=== PATIENT | female | born 1955 | race Caucasian/White ===

== ENCOUNTER → 2018-09-11 13:25 | Outpatient (CLI) | payer OTHER, SELFPAY ==
[2018-09-17 17:16] LABS: HPV Reflexed? NOT INDICATED
== END ==
PROVIDERS: Family Provider Family Medicine; PCP Family Medicine; Visit Provider Obstetrics & Gynecology
DX: Z12.4 Encounter for screening for malignant neoplasm of cervix (principal)
CPT/HCPCS: 88175; G0145

== ENCOUNTER → 2018-09-11 14:45 | Outpatient (CLI) | payer OTHER, SELFPAY ==
[2017-11-24 09:43] VITALS: BMI 25.4
[2018-09-11 17:41] LABS: Hemoglobin A1c 5.4 % (4.2-6.3)
[2018-09-11 17:51] LABS: Progesterone Level 0.12 ng/mL (See Comment)
[2018-09-11 19:39] LABS: Estradiol 18.4 pg/mL; Free T3 2.7 pg/mL (2.18-3.98); T4 Free Direct 1.04 ng/dL (0.76-1.46); Thyroid Stim Hormone (TSH) 1.31 uIU/mL (0.358-3.74)
[2018-09-13 09:27] LABS: DHEA Sulfate 37.9 ug/dL (29.4-220.5)
== END ==
PROVIDERS: Family Provider Family Medicine; PCP Family Medicine; Referring Provider Obstetrics & Gynecology; Visit Provider Obstetrics & Gynecology
DX: R53.83 Other fatigue (principal); Z78.0 Asymptomatic menopausal state
CPT/HCPCS: 36415; 82533; 82627; 82670; 83036; 84144; 84403; 84439; 84443; 84481; 82626

== ENCOUNTER → 2018-10-29 09:11 | Outpatient (CLI) | payer OTHER, SELFPAY ==
--- NOTE | 2018-10-29 09:13 | BI_ITS ---
MAMMOGRAPHY - BILATERAL SCREENING REASON FOR EXAM: Female, 63 years old. Routine annual screening examination. PERTINENT HISTORY: Non-contributory. TECHNIQUE: Digital bilateral breast brittani (3D mammographic acquisition) in the CC and MLO projections. 2-D mediolateral oblique (MLO) and craniocaudad (CC) views of both breasts were obtained. CAD: Full Field Digital Mammography with Computer Added Detection was performed. COMPARISON: Comparison is made with prior study dated March 14, 2017. FINDINGS: Breast Composition: There are scattered areas of fibroglandular density. There are no dominant masses or suspicious calcifications. No other significant abnormalities are identified. There has been no significant change since the prior study. BI/SCREENING MAMM (CAD), BILAT IMPRESSION: Stable bilateral screening mammogram. Yearly follow-up mammogram recommended. (A) ASSESSMENT CATEGORY: BIRADS Category 1: Negative. A letter regarding these results will be sent to the patient by the facility within 30 days. Approximately 10% of breast cancers are not detected by mammography. A normal mammogram should not delay biopsy of a clinically suspicious abnormality. [id number] Electronically Signed: Bean Carter, at 11:16 EDT , Service support ,
--- NOTE | 2018-10-29 09:16 | BD_ITS ---
STUDY: DUAL ENERGY X-RAY ABSORPTIOMETRY / DXA REASON FOR EXAM: Female, 63 years old. The patient is postmenopausal. No loss of height. TECHNIQUE: Bone Mineral Density (BMD) measurements of lumbar spine and bilateral hips were obtained. COMPARISON: Comparison is made with prior study dated January 17, 2016. FINDINGS: Lumbar Spine (L1-L4): g/cm2 (1.067) / T-score (-0.9) / Z-score (0.4) Findings are suggestive of normal bone density with a low fracture risk. Left Femur Total: g/cm2 (0.742) / T-score (-2.1) / Z-score (-1.1) Left Femoral Neck: g/cm2 (0.641) / T-score (-2.9) / Z-score (-1.5) Right Femur Total: g/cm2 (0.775) / T-score (-2.0) / Z-score (-1.0) Right Femoral Neck: g/cm2 (0.650) / T-score (-2.8) / Z-score (-1.5) The T-Scores on the most recent prior examination were: Lumbar Spine (L1-L4): There has been worsening of bone density since the previous examination. Left Femur Total: which represents a worsening of 4.6%. Right Femur Total: which represents a worsening of 4.2%. BD/Dexa Bone Density Study IMPRESSION: The patient is considered osteoporotic as outlined below according to [employer] Organization (WHO) criteria with a high fracture risk. There has been worsening of bone density since the previous examination. Reference Information: The T-score is the number of standard deviations above or below the standard which is normal for young adults at their peak bone mineral density. The World Health Organization (WHO) interprets the T-scores as follows: Above -1 Normal bone density Between -1 and -2.5 Osteopenia Equal to / or below -2.5 Osteoporosis As a practical clinical guideline, osteopenia may be graded as follows: Mild -1 through -1.5 Moderate -1.6 through -2.0 Severe -2.1 through -2.4 The Z-score is the number of standard deviations above or below age-matched controls. A Z-score of less than -1.5 would be considered abnormal. References: 1. NIH Osteoporosis and Related Bone Diseases http://www.osteo.org 2. International Society for Clinical Densitometry http://www.iscd.org 3. National Osteoporosis Foundation http://www.nof.org Electronically Signed: Bean Carter, at 14:55 EDT , Service support ,
== END ==
PROVIDERS: Family Provider Family Medicine; PCP Family Medicine; Referring Provider Obstetrics & Gynecology; Visit Provider Obstetrics & Gynecology
DX: Z12.31 Encounter for screening mammogram for malignant neoplasm of breast (principal); Z78.0 Asymptomatic menopausal state
CPT/HCPCS: 77063; 77067; 77080

== ENCOUNTER → 2020-03-30 15:15 | Outpatient (CLI) | payer OTHER, SELFPAY ==
--- NOTE | 2020-03-30 15:17 | BI_ITS ---
MAMMOGRAPHY - BILATERAL SCREENING REASON FOR EXAM: Female, 64 years old. Routine annual screening examination. PERTINENT HISTORY: Non-contributory. TECHNIQUE: Digital bilateral breast reuben (3D mammographic acquisition) in the CC and MLO projections. 2-D mediolateral oblique (MLO) and craniocaudad (CC) views of both breasts were obtained. CAD: Full Field Digital Mammography with Computer Added Detection was performed. COMPARISON: Comparison is made with prior examination dated 10/29/2018 and 03/14/2017. FINDINGS: Breast Composition: There are scattered areas of fibroglandular density. There are no dominant masses or suspicious calcifications. No other significant abnormalities are identified. There has been no significant change since the prior study. BI/SCREEN MAMM (CAD) W/REUBEN BILAT IMPRESSION: Stable bilateral screening mammogram. Yearly follow-up mammogram recommended. (A) ASSESSMENT CATEGORY: BIRADS Category 1: Negative. A letter regarding these results will be sent to the patient by the facility within 30 days. Approximately 10% of breast cancers are not detected by mammography. A normal mammogram should not delay biopsy of a clinically suspicious abnormality. [id number] Electronically Signed: Bean Carter, at 8:01 EDT , Service support ,
== END ==
PROVIDERS: PCP Family Medicine; Referring Provider Student in an Organized Health Care Education/Training Program; Visit Provider Student in an Organized Health Care Education/Training Program
DX: Z12.31 Encounter for screening mammogram for malignant neoplasm of breast (principal)
CPT/HCPCS: 77063; 77067

== ENCOUNTER 2020-09-22 02:17 | Outpatient (RCR) | payer OTHER, SELFPAY ==
[2017-11-24 09:43] VITALS: BMI 25.4
[2020-09-22] MEDS: COVID-19 VACC, MRNA(PFIZER)/PF 30 MCG/0.3 ML SYRINGE IM (17:35)
[2020-10-13] MEDS: COVID-19 VACC, MRNA(PFIZER)/PF 30 MCG/0.3 ML SYRINGE IM (16:28)
== END 2020-10-13 23:59 | disposition home or self-care (01) ==
LOC: IMMUN 02:17
PROVIDERS: PCP Family Medicine; Referring Provider Family Medicine; Visit Provider Family Medicine
DX: Z23 Encounter for immunization (principal)
CPT/HCPCS: 0001A; 0002A; 91300

== ENCOUNTER 2021-11-09 13:14 | Outpatient (CLI) | payer MEDICARE, OTHER, SELFPAY ==
--- NOTE | 2021-11-09 13:22 | BI_ITS ---
MAMMOGRAPHY - BILATERAL SCREENING 3-D TOMOSYNTHESIS REASON FOR EXAM: Female, 66 years old. SCREENING PERTINENT HISTORY: No significant family history. TECHNIQUE: 2-D mammograms and 3-D Tomosynthesis of the breast (s) were performed. CAD was performed. COMPARISON: 03/30/2020 FINDINGS: The breast composition is composed of scattered fibroglandular density. Scattered benign calcifications are seen. No dense spiculated masses or suspicious microcalcifications are identified. No architectural distortion is identified. There is no skin thickening or retraction. There has been no significant change since the prior study. BI/SCRN MAMM (CAD)W/REUBEN BILAT IMPRESSION: No mammographic signs of malignancy. Routine yearly mammograms recommended. ASSESSMENT CATEGORY: BIRADS Category 1: Negative. A letter regarding these results will be sent to the patient by the facility within 30 days. FOLLOW UP RECOMMENDATION: Yearly follow up mammogram recommended. (A) Approximately 10% of breast cancers are not detected by mammography. A normal mammogram should not delay biopsy of a clinically suspicious abnormality. Electronically Signed: Obi Jones MD at 16:28 EDT ,
--- NOTE | 2021-11-09 13:25 | BD_ITS ---
STUDY: DUAL ENERGY X-RAY ABSORPTIOMETRY / DXA REASON FOR EXAM: Female, 66 years old. M810. Patient is postmenopausal. TECHNIQUE: Bone Mineral Density (BMD) measurements of lumbar spine and bilateral hips were obtained. COMPARISON: Comparison is made with prior study 10/29/2018. FINDINGS: Lumbar Spine (L1-L4): g/cm2 (0.811) / T-score (-2.1) / Z-score (0.4) Findings are suggestive of osteopenia with a moderate fracture risk. Left Femur Total: g/cm2 (0.633) / T-score (-2.5) / Z-score (-1.3) Left Femoral Neck: g/cm2 (0.517) / T-score (-3.0) / Z-score (-1.5) Right Femur Total: g/cm2 (0.687) / T-score (-2.1) / Z-score (-0.9) Right Femoral Neck: g/cm2 (0.505) / T-score (-3.1) / Z-score (-1.6) The T-Scores on the most recent prior examination were: Lumbar Spine (L1-L4): There has been worsening of bone density since the previous examination. Left Femur Total: which represents a worsening of 7.4%. Right Femur Total: which represents a worsening of 1.3%. BD/Dexa Bone Density Study IMPRESSION: The patient is considered osteoporotic as outlined below according to [employer] Organization (WHO) criteria with a high fracture risk. There has been worsening of bone density since the previous examination. Reference Information: The T-score is the number of standard deviations above or below the standard which is normal for young adults at their peak bone mineral density. The World Health Organization (WHO) interprets the T-scores as follows: Above -1 Normal bone density Between -1 and -2.5 Osteopenia Equal to / or below -2.5 Osteoporosis As a practical clinical guideline, osteopenia may be graded as follows: Mild -1 through -1.5 Moderate -1.6 through -2.0 Severe -2.1 through -2.4 The Z-score is the number of standard deviations above or below age-matched controls. A Z-score of less than -1.5 would be considered abnormal. References: 1. NIH Osteoporosis and Related Bone Diseases www osteo.org 2. International Society for Clinical Densitometry www iscd.org 3. National Osteoporosis Foundation www nof.org Electronically Signed: Bean Carter MD at 10:46 EDT ,
== END 2021-11-09 23:59 | disposition home or self-care (01) ==
LOC: OPBI 13:17
PROVIDERS: PCP Family Medicine; Visit Provider Family Medicine
DX: Z12.31 Encounter for screening mammogram for malignant neoplasm of breast (principal); M81.0 Age-related osteoporosis without current pathological fracture
CPT/HCPCS: 77063; 77067; 77080

== ENCOUNTER → 2022-07-05 | Outpatient (CLI) | payer MEDICARE, OTHER, SELFPAY ==
--- NOTE | 2022-07-05 06:24 | MRI_ITS ---
STUDY: MRI LEFT KNEE REASON FOR EXAM: Female, 66 years old. Fall, knee injury, knee pain. TECHNIQUE: Standardized fat and water weighted pulse sequences were obtained in all 3 orthogonal planes. COMPARISON: X-ray 06/11/2022 FINDINGS: Normal medial meniscus. Normal hyaline cartilage of the medial femorotibial compartment. Within the medial femoral condyle at the origin of the medial collateral ligament there is a oval nondisplaced microtrabecular fracture with surrounding severe contusion. This may be from direct trauma. Grade 1 medial collateral ligament tear/sprain. Normal distal semimembranosus, gracilis and semitendinosus tendons. Normal lateral meniscus. Normal hyaline cartilage of the lateral femorotibial compartment. Curvilinear microtrabecular fracture of the posterior aspect of the lateral tibial plateau with surrounding severe contusion. Severe contusion of the lateral femoral condyle as well. Normal proximal tibiofibular articulation. Normal lateral collateral (fibular) ligament. Normal popliteus tendon. Normal biceps femoris tendon. Normal anterior cruciate ligament (ACL). Normal posterior cruciate ligament (PCL). Shallow trochlear groove with lateral subluxation patella and edema superolateral Hoffa''s fat pad consistent with patellofemoral maltracking. Normal hyaline cartilage of the patellofemoral compartment. There is a complete sprain of the medial parapatellar retinaculum. Normal quadriceps tendon. Normal patellar tendon. Normal Hoffa''s fat pad. There is no joint effusion. The soft tissues are unremarkable. The otherwise visualized osseous structures are unremarkable. MRI/Lower Ext Joint Only (Routine) IMPRESSION: 1. Full-thickness tear of the origin of the medial patellofemoral retinaculum at the origin from the medial femoral condyle near the origin of the medial collateral ligament. Associated grade 1 medial collateral ligament tear/sprain. Oval microtrabecular fracture of the adjacent medial femoral condyle with surrounding severe contusion. Findings may be related to direct trauma or patellar dislocation with near avulsion. 2. Small curvilinear microtrabecular fracture of the posterior lateral tibial plateau with surrounding severe contusion and severe contusion of the lateral femoral condyle. 3. Patellofemoral maltracking. Electronically Signed: Obi Jones MD at 8:26 EST ,
== END | disposition home or self-care (01) ==
LOC: MRI 06:24
PROVIDERS: PCP Family Medicine; Referring Provider Physician Assistant; Visit Provider Physician Assistant
DX: S82.142A Displaced bicondylar fracture of left tibia, initial encounter for closed fracture (principal); S72.433A Displaced fracture of medial condyle of unspecified femur, initial encounter for closed fracture; S70.12XA Contusion of left thigh, initial encounter; S83.412A Sprain of medial collateral ligament of left knee, initial encounter; S83.012A Lateral subluxation of left patella, initial encounter
CPT/HCPCS: 73721

== ENCOUNTER → 2022-11-06 | Outpatient (CLI) | payer MEDICARE, OTHER, SELFPAY ==
[2022-11-06 08:05] LABS: Absolute Lymphocyte Count 1.26 X10^3/uL (0.83-4.51); Absolute Neutrophil Count 1.5 X10^3/uL (2.0-7.7); Basophil# 0.02 X10^3/uL; Basophil% 0.6 % (0-1); Eosinophil# 0.11 X10^3/uL; Eosinophils% 3.5 % (0-5); Hemoglobin 13.9 g/dL (12.0-15.0); Lymphocyte # 1.26 X10^3/ul (0.83-4.51); Lymphocyte % 39.7 % (19-41); Mean Corp Hgb Conc 31.6 g/dL (32-36); Mean Corpuscular Hgb 31.7 pg (27.0-32.0); Mean Corpuscular Volume 100.2 fL (81-99); Mean Platelet Vol. 10.8 fl (6.2-12.0); Monocyte% 9.5 % (0-10); NRBC Flagged by Analyzer 0 % (0-5); Neutrophil # 1.47 X10^3/uL (2.7-7.7); Neutrophil % 46.4 % (47-70); Platelet Count 207 K/mm3 (150-450); RBC Distribution Width CV 13.2 % (11.6-14.6); RBC Distribution Width SD 49.1 fl (35.1-43.9); Red Blood Count 4.39 M/mm3 (4.2-5.4); White Blood Count 3.2 K/mm3 (4.4-11.0)
[2022-11-06 08:18] LABS: ALB/GLOB Ratio 1.1 RATIO (0.9-2.4); AST(SGOT) 11 U/L (15-37); Alanine Aminotransfer ALT/SGPT 24 U/L (13-56); Albumin, Serum 3.9 g/dL (3.2-5.0); Alkaline Phosphatase 66 U/L (45-117); Anion Gap -2 (5-15); BUN 21 mg/dL (7-18); BUN/Creat Ratio 26.1 RATIO (10-20); Chloride 110 mmol/L (98-107); Cholesterol 262 mg/dL (200); Creatinine, Serum 0.81 mg/dL (0.55-1.02); EST Glomerular Filtration Rate 76 mL/min (>60); Est Glom Filt Rate - Afr Amer 92 mL/min (>60); Globulin 3.4 g/dL (2.2-4.2); Glucose 106 mg/dL (74-106); High Density Lipoprotein 66 mg/dL; Potassium 4.5 mmol/L (3.5-5.1); Protein, Total 7.3 g/dL (6.4-8.2); Sodium Level 138 mmol/L (136-145); Triglycerides 172 mg/dL; Very Low Density Lipoprotein 34 mg/dL (5-40)
== END | disposition home or self-care (01) ==
LOC: LAB 07:35
PROVIDERS: PCP Family Medicine; Referring Provider Family Medicine; Visit Provider Family Medicine
DX: E78.5 Hyperlipidemia, unspecified (principal); Z51.81 Encounter for therapeutic drug level monitoring
CPT/HCPCS: 36415; 80053; 80061; 85025

== ENCOUNTER → 2022-11-14 | Outpatient (CLI) | payer MEDICARE, OTHER, SELFPAY ==
--- NOTE | 2022-11-14 08:43 | BI_ITS ---
MAMMOGRAPHY - BILATERAL SCREENING REASON FOR EXAM: Female, 67 years old. Routine annual screening examination. PERTINENT HISTORY: Non-contributory. TECHNIQUE: Digital bilateral breast reuben (3D mammographic acquisition) in the CC and MLO projections. 2-D mediolateral oblique (MLO) and craniocaudad (CC) views of both breasts were obtained. CAD: Full Field Digital Mammography with Computer Added Detection was performed. COMPARISON: Comparison is made with prior study dated November 09, 2021 and March 30, 2020. FINDINGS: Breast Composition: There are scattered areas of fibroglandular density. There are no dominant masses or suspicious calcifications. No other significant abnormalities are identified. There has been no significant change since the prior study. BI/SCRN MAMM (CAD)W/REUBEN BILAT IMPRESSION: Stable bilateral screening mammogram. Yearly follow-up mammogram recommended. (A) ASSESSMENT CATEGORY: BIRADS Category 1: Negative. A letter regarding these results will be sent to the patient by the facility within 30 days. Approximately 10% of breast cancers are not detected by mammography. A normal mammogram should not delay biopsy of a clinically suspicious abnormality. [id number] Electronically Signed: Bean Carter MD at 9:47 EDT ,
== END | disposition home or self-care (01) ==
LOC: OPBI 08:41
PROVIDERS: PCP Family Medicine; Referring Provider Family Medicine; Visit Provider Family Medicine
DX: Z12.31 Encounter for screening mammogram for malignant neoplasm of breast (principal)
CPT/HCPCS: 77063; 77067

== ENCOUNTER 2023-04-26 13:01 | Outpatient (CLI) | payer MEDICARE, OTHER, SELFPAY ==
[2023-04-26 13:24] VITALS: BP 145/69; PULSE 67; RESP 16; TEMP 36.7; O2SAT 98; BMI 25.4
[2023-04-26] MEDS: DENOSUMAB 60 MG/ML SC (13:26)
== END 2023-04-26 13:02 | disposition home or self-care (01) ==
LOC: MEDOUTP 13:01
PROVIDERS: PCP Family Medicine; Referring Provider Family Medicine; Visit Provider Family Medicine
DX: M81.0 Age-related osteoporosis without current pathological fracture (principal)
CPT/HCPCS: 96372; J0897

== ENCOUNTER 2023-10-25 12:47 | Outpatient (CLI) | payer MEDICARE, OTHER, SELFPAY ==
[2023-10-25 12:57] VITALS: BP 130/62; PULSE 66; RESP 16; TEMP 35.5; O2SAT 96; BMI 25.7
[2023-10-25] MEDS: DENOSUMAB 60 MG/ML SC (12:59)
== END 2023-10-25 12:48 | disposition home or self-care (01) ==
LOC: MEDOUTP 12:47
PROVIDERS: PCP Family Medicine; Referring Provider Family Medicine; Visit Provider Family Medicine
DX: M81.0 Age-related osteoporosis without current pathological fracture (principal)
CPT/HCPCS: 96372; J0897

== ENCOUNTER → 2023-12-04 | Outpatient (CLI) | payer MEDICARE, OTHER, SELFPAY ==
[2023-12-04 12:36] LABS: Absolute Lymphocyte Count 1.28 X10^3/uL (0.83-4.51); Absolute Neutrophil Count 1.5 X10^3/uL (2.0-7.7); Basophil# 0.03 X10^3/uL; Basophil% 0.9 % (0-1); Eosinophil# 0.12 X10^3/uL; Eosinophils% 3.6 % (0-5); Hematocrit 42.2 % (37-47); Hemoglobin 13.4 g/dL (12.0-15.0); Lymphocyte # 1.28 X10^3/ul (0.83-4.51); Lymphocyte % 38.9 % (19-41); Mean Corp Hgb Conc 31.8 g/dL (32-36); Mean Corpuscular Hgb 31.5 pg (27.0-32.0); Mean Corpuscular Volume 99.1 fL (81-99); Mean Platelet Vol. 11.3 fl (6.2-12.0); Monocyte# 0.32 X10^3/uL; Monocyte% 9.7 % (0-10); NRBC Flagged by Analyzer 0 % (0-5); Neutrophil # 1.53 X10^3/uL (2.7-7.7); Neutrophil % 46.6 % (47-70); Platelet Count 204 K/mm3 (150-450); RBC Distribution Width SD 46.9 fl (35.1-43.9); Red Blood Count 4.26 M/mm3 (4.2-5.4); White Blood Count 3.3 K/mm3 (4.4-11.0)
[2023-12-04 12:57] LABS: Vitamin B12 158 pg/mL (211-911)
[2023-12-04 14:47] LABS: ALB/GLOB Ratio 1.1 RATIO (0.9-2.4); AST(SGOT) 18 U/L (15-37); Alanine Aminotransfer ALT/SGPT 54 U/L (13-56); Albumin, Serum 3.8 g/dL (3.2-5.0); Alkaline Phosphatase 62 U/L (45-117); Anion Gap 6 (5-15); BUN 17 mg/dL (7-18); BUN/Creat Ratio 22.9 RATIO (10-20); Calcium,Total 9.7 mg/dL (8.5-10.1); Chloride 110 mmol/L (98-107); Cholesterol 253 mg/dL (200); Creatinine, Serum 0.74 mg/dL (0.55-1.02); EST Glomerular Filtration Rate 83 mL/min (>60); Est Glom Filt Rate - Afr Amer 101 mL/min (>60); Free T3 2.4 pg/mL (2.18-3.98); Globulin 3.5 g/dL (2.2-4.2); Glucose 96 mg/dL (74-106); High Density Lipoprotein 59 mg/dL; Potassium 4.3 mmol/L (3.5-5.1); Protein, Total 7.3 g/dL (6.4-8.2); Sodium Level 139 mmol/L (136-145); T4 Free Direct 1.11 ng/dL (0.76-1.46); Thyroid Stim Hormone (TSH) 0.94 uIU/mL (0.358-3.74); Triglycerides 166 mg/dL; Very Low Density Lipoprotein 33 mg/dL (5-40)
== END | disposition home or self-care (01) ==
LOC: BFHLAB 08:21
PROVIDERS: PCP Family Medicine; Referring Provider Family Medicine; Visit Provider Family Medicine
DX: E03.9 Hypothyroidism, unspecified (principal); E78.1 Pure hyperglyceridemia; E53.8 Deficiency of other specified B group vitamins
CPT/HCPCS: 36415; 80053; 80061; 82607; 84439; 84443; 84481; 85025

== ENCOUNTER → 2023-12-26 | Outpatient (CLI) | payer MEDICARE, OTHER, SELFPAY ==
--- NOTE | 2023-12-26 14:02 | RAD_ITS ---
INDICATION: THORACIC BACK PAIN EXAMINATION/TECHNIQUE: X-RAY - XR Spine Thoracic 3 Views COMPARISON: FINDINGS: VERTEBRAE: Preserved vertebral body height. Mild spurring at the mid thoracic vertebral endplates. No fracture. No spondylolisthesis. Preservation of the normal thoracic kyphosis. No significant facet arthropathy. DISCS: Disc spaces are maintained. INCLUDED CHEST/ABDOMEN: No acute abnormalities. RAD/Thoracic Spine 3 Views IMPRESSION: Degenerative vertebral changes. Electronically Signed: Bennett Cedillo DO at 18:04 EDT ,
== END | disposition home or self-care (01) ==
LOC: RAD 14:00
PROVIDERS: PCP Family Medicine; Referring Provider Family Medicine; Visit Provider Family Medicine
DX: M54.6 Pain in thoracic spine (principal)
CPT/HCPCS: 72072

== ENCOUNTER 2024-05-08 12:19 | Outpatient (CLI) | payer MEDICARE, OTHER, SELFPAY ==
[2024-05-08 12:44] VITALS: BP 136/61; PULSE 60; RESP 16; TEMP 36.4; O2SAT 97; BMI 25.4
[2024-05-08] MEDS: DENOSUMAB 60 MG/ML SC (12:49)
== END 2024-05-08 23:59 | disposition home or self-care (01) ==
LOC: MEDOUTP 12:21
PROVIDERS: PCP Family Medicine; Referring Provider Family Medicine; Visit Provider Family Medicine
DX: M81.0 Age-related osteoporosis without current pathological fracture (principal)
CPT/HCPCS: 96372; J0897

== ENCOUNTER → 2024-06-04 | Outpatient (CLI) | payer MEDICARE, OTHER, SELFPAY ==
--- NOTE | 2024-06-04 14:51 | BD_ITS ---
STUDY: DUAL ENERGY X-RAY ABSORPTIOMETRY / DXA REASON FOR EXAM: Female, 68 years old. 733.00OsteoporosisBONE DENSITY REASON FOR EXAM TECHNIQUE: Bone Mineral Density (BMD) measurements of lumbar spine and bilateral hips were obtained. COMPARISON: Comparison is made with prior study of November 09, 2021. FINDINGS: Lumbar Spine (L1-L4): g/cm2 (0.887) / T-score (-1.5) / Z-score (0.5) Findings are suggestive of osteopenia with a low fracture risk. Left Femur Total: g/cm2 (0.657) / T-score (-2.3) / Z-score (-1.0) Left Femoral Neck: g/cm2 (0.473) / T-score (-3.4) / Z-score (-1.7) Right Femur Total: g/cm2 (0.684) / T-score (-2.1) / Z-score (-0.7) Right Femoral Neck: g/cm2 (0.514) / T-score (-3.0) / Z-score (-1.4) The T-Scores on the most recent prior examination were: Lumbar Spine (L1-L4): There has been improvement of bone density since the previous examination. Left Femur Total: which represents an improvement of 3.7%. Right Femur Total: which represents a worsening of and 0.5%. BD/Dexa Bone Density Study IMPRESSION: The patient is considered osteopenic as outlined below according to [employer] Organization (WHO) criteria with a high fracture risk. There has been improvement of bone density since the previous examination. Reference Information: The T-score is the number of standard deviations above or below the standard which is normal for young adults at their peak bone mineral density. The World Health Organization (WHO) interprets the T-scores as follows: Above -1 Normal bone density Between -1 and -2.5 Osteopenia Equal to / or below -2.5 Osteoporosis As a practical clinical guideline, osteopenia may be graded as follows: Mild -1 through -1.5 Moderate -1.6 through -2.0 Severe -2.1 through -2.4 The Z-score is the number of standard deviations above or below age-matched controls. A Z-score of less than -1.5 would be considered abnormal. References: 1. NIH Osteoporosis and Related Bone Diseases www osteo.org 2. International Society for Clinical Densitometry www iscd.org 3. National Osteoporosis Foundation www nof.org Electronically Signed: Bean Carter MD at 15:25 EST ,
--- NOTE | 2024-06-04 14:52 | BI_ITS ---
MAMMOGRAPHY - BILATERAL SCREENING REASON FOR EXAM: Female, 68 years old. Routine annual screening examination. PERTINENT HISTORY: Non-contributory. TECHNIQUE: Digital bilateral breast reuben (3D mammographic acquisition) in the CC and MLO projections. 2-D mediolateral oblique (MLO) and craniocaudad (CC) views of both breasts were obtained. CAD: Full Field Digital Mammography with Computer Added Detection was performed. COMPARISON: Comparison is made with prior study dated November 14, 2022 and November 09, 2021. FINDINGS: Breast Composition: There are scattered areas of fibroglandular density. There are no dominant masses or suspicious calcifications. No other significant abnormalities are identified. There has been no significant change since the prior study. BI/SCRN MAMM (CAD)W/REUBEN BILAT IMPRESSION: Stable bilateral screening mammogram. Yearly follow-up mammogram recommended. (A) ASSESSMENT CATEGORY: BIRADS Category 1: Negative. A letter regarding these results will be sent to the patient by the facility within 30 days. Approximately 10% of breast cancers are not detected by mammography. A normal mammogram should not delay biopsy of a clinically suspicious abnormality. [id number] Electronically Signed: Bean Carter MD at 15:48 EST ,
== END | disposition home or self-care (01) ==
LOC: OPBD 14:50
PROVIDERS: PCP Family Medicine; Referring Provider Family Medicine; Visit Provider Family Medicine
DX: Z12.31 Encounter for screening mammogram for malignant neoplasm of breast (principal); M81.0 Age-related osteoporosis without current pathological fracture
CPT/HCPCS: 77063; 77067; 77080

== ENCOUNTER 2024-11-06 12:17 | Outpatient (CLI) | payer MEDICARE, OTHER, SELFPAY ==
[2024-11-06 12:30] VITALS: BP 121/57; PULSE 70; RESP 16; TEMP 36.4; O2SAT 99; BMI 25.7
[2024-11-06] MEDS: DENOSUMAB 60 MG/ML SC (12:31)
== END 2024-11-06 23:59 | disposition home or self-care (01) ==
LOC: MEDOUTP 12:19
PROVIDERS: PCP Family Medicine; Referring Provider Family Medicine; Visit Provider Family Medicine
DX: M81.0 Age-related osteoporosis without current pathological fracture (principal)
CPT/HCPCS: 96372; J0897

== ENCOUNTER → 2025-01-19 | Outpatient (CLI) | payer MEDICARE, OTHER, SELFPAY ==
--- OUTSIDE RECORDS SUMMARY | 2025-01-19 10:46 | XMS RPT_ITS | CCD ---
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 Linh Peters Primary Care Provider [phone] Dr. Linh Peters Referring Provider [phone] Ai KULKARNI PA Reed Mathis Attending Provider Shawanda KULKARNI PA Twin Attending Provider [phone] Dr. Linh Peters DO Primary Care Provider Dr. Linh Peters DO Attending Provider [phone] Dr. Linh Peters DO Referring Provider [phone] Malys, Linh Primary Care Unavailable Malys, Linh Referring Unavailable Malys, Linh Attending Unavailable Malys, Linh Primary Care Unavailable Malys, Linh Referring Unavailable Malys, Linh Attending Unavailable Malys, Linh Primary Care Unavailable Malys, Linh Referring Unavailable Malys, Linh Attending Unavailable Malys, Linh Referring Unavailable Malys, Linh Attending Unavailable Malys, Linh Primary Care Unavailable Malys, Linh Referring Unavailable Malys, Linh Attending Unavailable Malys, Linh Primary Care Unavailable Medications Current Medications Medication Drug Class(es) Dates Sig (Normalized) Sig (Original) pantoprazole 40 mg delayed release oral tablet (5 sources) Proton Pump Inhibitor Start: 06-13-2022 take 1 tablet by mouth once daily Pantoprazole 40 mg tablet,delayed release (DR/EC) Active 40 mg PO DAILY June 13, 2022 1:00am Completed/Discontinued Medications Medication Drug Class(es) Dates Sig (Normalized) Sig (Original) alendronic acid 70 mg oral tablet (5 sources) Bisphosphonate Start: 06-13-2022 End: 04-26-2023 take 1 tablet by mouth every week Alendronate 70 mg tablet Discontinued 70 mg PO EVERY WEEK June 13, 2022 1:00am April 26, 2023 1:23pm esomeprazole 40 mg delayed release oral capsule (6 sources) Proton Pump Inhibitor Start: 04-06-2014 End: 06-13-2022 take 1 capsule by mouth once daily Esomeprazole Magnesium 40 MG capsule Discontinued 40 mg PO DAILY April 06, 2014 12:00am June 13, 2022 11:50am meloxicam 7.5 mg oral tablet (5 sources) Nonsteroidal Anti-inflammatory Drug Start: 07-09-2022 End: 10-25-2023 take 1-2 tablets by mouth once daily Meloxicam 7.5 mg tablet Discontinued 0 PO DAILY July 09, 2022 1:00am October 25, 2023 12:56pm 1-2 tablets orally daily; (start with 1 tablet (7.5mg)) traMADol hydrochloride 50 mg oral tablet (5 sources) Opioid Agonist Start: 07-09-2022 End: 10-25-2023 take 1 tablet by mouth every eight hours as needed for pain Tramadol 50 mg tablet Discontinued 50 mg PO Q8H as needed for pain July 09, 2022 1:00am October 25, 2023 12:56pm Problems Active Problems Problem Classification Problem Date Documented Da te Episodic/Chronic Osteoporosis (1 source) Age-related osteoporosis without current pathological fracture; Translations: [Age-related osteoporosis without current pathological fracture] Onset: 11-10-2024 Chronic Sprains and strains (13 sources) Sprain of knee; Translations: [Sprain of other specified parts of left knee, initial encounter] Episodic Superficial injury; contusion (8 sources) Contusion of knee; Translations: [Contusion of left knee, initial encounter] Episodic Thyroid disorders (1 source) Hypothyroidism, unspecified; Translations: [Hypothyroidism, unspecified] Onset: 12-10-2023 Chronic Past or Other Problems Problem Classification Problem Date Documented Da te Episodic/Chronic Other screening for suspected conditions (not mental disorders or infectious disease) (1 source) Encounter for screening mammogram for malignant neoplasm of breast; Translations: [Encounter for screening mammogram for malignant neoplasm of breast] Onset: 07-02-2024 Episodic Spondylosis; intervertebral disc disorders; other back problems (1 source) Pain in thoracic spine; Translations: [Pain in thoracic spine] Onset: 06-21-2024 Episodic Results Test Name Value Interpretation Reference Range Facility Dexa Bone Density Studyon Dexa Bone Density Study [facility] Imaging Services [address] [place], [place] [address] Dexa Bone Density Study MR#: [id number] Acct: [id number] Name: GARCIA FARRELL Rep #: [id number] : 1955 F 68 From: Bean lopez MD PCP: Dr. Linh Peters DO Status: REG CLI Study: Dexa Bone Density Study Date of Exam: 06/04/24 Exam# [id number] Ordering Dr: Linh Peters DO -[id number] STUDY: DUAL ENERGY X-RAY ABSORPTIOMETRY / DXA REASON FOR EXAM: Female, 68 years old. 733.00OsteoporosisB ONE DENSITY REASON FOR EXAM TECHNIQUE: Bone Mineral Density (BMD) measurements of lumbar spine and bilateral hips were obtained. COMPARISON: Comparison is made with prior study of November 09, 2021. FINDINGS: Lumbar Spine (L1-L4): g/cm2 (0.887) / T-score (-1.5) / Z-score (0.5) Findings are suggestive of osteopenia with a low fracture risk. Left Femur Total: g/cm2 (0.657) / T-score (-2.3) / Z-score (-1.0) Left Femoral Neck: g/cm2 (0.473) / T-score (-3.4) / Z-score (-1.7) Right Femur Total: g/cm2 (0.684) / T-score (-2.1) / Z-score (-0.7) Right Femoral Neck: g/cm2 (0.514) / T-score (-3.0) / Z-score (-1.4) The T-Scores on the most recent prior examination were: Lumbar Spine (L1-L4): There has been improvement of bone density since the previous examination. Left Femur Total: which represents an improvement of 3.7%. Right Femur Total: which represents a worsening of and 0.5%. BD/Dexa Bone Density Study IMPRESSION: The patient is considered osteopenic as outlined below according to [employer] Organization (WHO) criteria with a high fracture risk. There has been improvement of bone density since the previous examination. Reference Information: The T-score is the number of standard deviations above or below the standard which is normal for young adults at their peak bone mineral density. The World Health Organization (WHO) interprets the T-scores as follows: Above -1 Normal bone density Between -1 and -2.5 Osteopenia Equal to / or below -2.5 Osteoporosis As a practical clinical guideline, osteopenia may be graded as follows: Mild -1 through -1.5 Moderate -1.6 through -2.0 Severe -2.1 through -2.4 The Z-score is the number of standard deviations above or below age-matched controls. A Z-score of less than -1.5 would be considered abnormal. References: 1. NIH Osteoporosis and Related Bone Diseases www osteo.org 2. International Society for Clinical Densitometry www iscd.org 3. National Osteoporosis Foundation www nof.org Electronically Signed: Bean Carter MD at 15:25 EST , CC: Dr. Linh Peters, [place] Department Supervisor: Signed Normal [facility] SCRN MAMM (CAD)W/REUBEN Thakkar n 06-04-2024 SCRN MAMM (CAD)W/REUBEN BILAT [facility] Imaging Services [address] [place], [place] [address] SCRN MAMM (CAD)W/REUBEN IRIZARRY MR#: [id number] Acct: [id number] Name: GARCIA FARRELL Rep #: [id number] : 1955 F 68 From: Bean lopez MD PCP: Dr. Linh Peters DO Status: [facility] Study: SCRN MAMM (CAD)W/REUBEN BILAT Date of Exam: 05/22 11/12 Exam# [id number] Ordering Dr: Linh Peters DO -[id number] MAMMOGRAPHY - BILATERAL SCREENING REASON FOR EXAM: Female, 68 years old. Routine annual screening examination. PERTINENT HISTORY: Non-contributory. TECHNIQUE: Digital bilateral breast reuben (3D mammographic acquisition) in the CC and MLO projections. 2-D mediolateral oblique (MLO) and craniocaudad (CC) views of both breasts were obtained. CAD: Full Field Digital Mammography with Computer Added Detection was performed. COMPARISON: Comparison is made with prior study dated November 14, 2022 and November 09, 2021. FINDINGS: Breast Composition: There are scattered areas of fibroglandular density. There are no dominant masses or suspicious calcifications. No other significant abnormalities are identified. There has been no significant change since the prior study. BI/SCRN MAMM (CAD)W/REUBEN BILAT IMPRESSION: Stable bilateral screening mammogram. Yearly follow-up mammogram recommended. (A) ASSESSMENT CATEGORY: BIRADS Category 1: Negative. A letter regarding these results will be sent to the patient by the facility within 30 days. Approximately 10% of breast cancers are not detected by mammography. A normal mammogram should not delay biopsy of a clinically suspicious abnormality. [id number] Electronically Signed: Bean Carter MD at 15:48 EST , CC: Dr. iLnh Peters DO [place] Department Supervisor: Signed Normal [facility] Thoracic Spine 3 Viewson Thoracic Spine 3 Views [facility] Imaging Services [address] [place] [address] Thoracic Spine 3 Views MR#: [id number] Acct: [id number] Name: GARCIA FARRELL Rep #: [id number] : 1955 F 68 From: Bennett Cedillo DO PCP: Dr. Linh Peters DO Status: REG CLI Study: Thoracic Spine 3 Views Date of Exam: 12/26/23 Exam# [id number] Ordering Dr: Linh Peters DO -[id number] INDICATION: THORACIC BACK PAIN EXAMINATION/TECHNIQ UE: X-RAY - XR Spine Thoracic 3 Views COMPARISON: FINDINGS: VERTEBRAE: Preserved vertebral body height. Mild spurring at the mid thoracic vertebral endplates. No fracture. No spondylolisthesis. Preservation of the normal thoracic kyphosis. No significant facet arthropathy. DISCS: Disc spaces are maintained. INCLUDED CHEST/ABDOMEN: No acute abnormalities. RAD/Thoracic Spine 3 Views IMPRESSION: Degenerative vertebral changes. Electronically Signed: Bennett Cedillo DO at 18:04 EDT , CC: Dr. Linh Peters DO [place] Department Supervisor: Signed Normal [facility] CBC W/Diff, Automatedon 05- Absolute Lymph 1.28 X10 3/uL Normal 0.83-4.51 [facility] Comment on above: Performed By: #### L 500.4100, L503.0105, L501.56869, L100.0100, L506.0400, L500.4050, L501.9520 #### [facility] Laboratory [address] [place], [address] Absolute Neut 1.5 X10 3/uL Low 2.0-7.7 [facility] Comment on above: Performed By: #### L 500.4100, L503.0105, L501.77053, L100.0100, L506.0400, L500.4050, L501.9520 #### [facility] Laboratory [address] [place], [address] Basophils/100 WBC (Bld) 0.9 % Normal 0-1 [facility] Comment on above: Performed By: #### L 500.4100, L503.0105, L501.49217, L100.0100, L506.0400, L500.4050, L501.9520 #### [facility] Laboratory [address] [place], [address] Eosinophils/100 WBC (Bld) 3.6 % Normal 0-5 [facility] Comment on above: Performed By: #### L 500.4100, L503.0105, L501.18332, L100.0100, L506.0400, L500.4050, L501.9520 #### [facility] Laboratory [address] [place], [address] Erythrocyte distribution width (RBC) [Ratio] 13.0 % Normal 11.6-14.6 [facility] Comment on above: Performed By: #### L 500.4100, L503.0105, L501.89434, L100.0100, L506.0400, L500.4050, L501.9520 #### [facility] Laboratory [address] [place], [address] Hematocrit (Bld) [Volume fraction] 42.2 % Normal 37-47 [facility] Comment on above: Performed By: #### L 500.4100, L503.0105, L501.22161, L100.0100, L506.0400, L500.4050, L501.9520 #### [facility] Laboratory [address] [place], [address] Hemoglobin (Bld) [Mass/Vol] 13.4 g/dL Normal 12.0-15.0 [facility] Comment on above: Performed By: #### L 500.4100, L503.0105, L501.87504, L100.0100, L506.0400, L500.4050, L501.9520 #### [facility] Laboratory [address] [place], [address] IG% 0.300 Normal 0.0-0.9 [facility] Comment on above: Result Comment: IG% - Immature Granulocytes (promyelocytes, myelocytes and metamyelocytes) > 1% indicates that a LEFT SHIFT is Present. Performed By: #### L 500.4100, L503.0105, L501.79434, L100.0100, L506.0400, L500.4050, L501.9520 #### [facility] Laboratory [address] [place], [address] Lymphocytes/100 WBC (Bld) 38.9 % Normal 19-41 [facility] Comment on above: Performed By: #### L 500.4100, L503.0105, L501.27146, L100.0100, L506.0400, L500.4050, L501.9520 #### [facility] Laboratory [address] [place], [address] MCH (RBC) [Entitic mass] 31.5 pg Normal 27.0-32.0 [facility] Comment on above: Performed By: #### L 500.4100, L503.0105, L501.22695, L100.0100, L506.0400, L500.4050, L501.9520 #### [facility] Laboratory [address] [place], [address] MCHC (RBC) [Mass/Vol] 31.8 g/dL Low 32-36 [facility] Comment on above: Performed By: #### L 500.4100, L503.0105, L501.26676, L100.0100, L506.0400, L500.4050, L501.9520 #### [facility] Laboratory [address] [place], [address] MCV (RBC) [Entitic vol] 99.1 fL High 81-99 [facility] Comment on above: Performed By: #### L 500.4100, L503.0105, L501.97370, L100.0100, L506.0400, L500.4050, L501.9520 #### [facility] Laboratory [address] [place], [address] Monocytes/100 WBC (Bld) 9.7 % Normal 0-10 [facility] Comment on above: Performed By: #### L 500.4100, L503.0105, L501.69116, L100.0100, L506.0400, L500.4050, L501.9520 #### [facility] Laboratory [address] [place], [address] Neutrophils/100 WBC (Bld) 46.6 % Low 47-70 [facility] Comment on above: Performed By: #### L 500.4100, L503.0105, L501.02659, L100.0100, L506.0400, L500.4050, L501.9520 #### [facility] Laboratory [address] [place], [address] Nucleated RBC (Bld) [#/Vol] 0 10*3/uL Normal 0-5 [facility] Comment on above: Performed By: #### L 500.4100, L503.0105, L501.67585, L100.0100, L506.0400, L500.4050, L501.9520 #### [facility] Laboratory [address] [place], [address] Platelet mean volume (Bld) [Entitic vol] 11.3 fL Normal 6.2-12.0 [facility] Comment on above: Performed By: #### L 500.4100, L503.0105, L501.38802, L100.0100, L506.0400, L500.4050, L501.9520 #### [facility] Laboratory [address] [place], [address] Platelets (Bld) [#/Vol] 204 10*3/uL Normal 150-450 [facility] Comment on above: Performed By: #### L 500.4100, L503.0105, L501.71703, L100.0100, L506.0400, L500.4050, L501.9520 #### [facility] Laboratory [address] [place], [address] RBC (Bld) [#/Vol] 4.26 10*6/uL Normal 4.2-5.4 [facility] Comment on above: Performed By: #### L 500.4100, L503.0105, L501.07351, L100.0100, L506.0400, L500.4050, L501.9520 #### [facility] Laboratory [address] [place], [address] RDW SD 46.9 fl High 35.1-43.9 [facility] Comment on above: Performed By: #### L 500.4100, L503.0105, L501.75650, L100.0100, L506.0400, L500.4050, L501.9520 #### [facility] Laboratory [address] [place], [address] WBC (Bld) [#/Vol] 3.3 10*3/uL Low 4.4-11.0 [facility] Comment on above: Performed By: #### L 500.4100, L503.0105, L501.76574, L100.0100, L506.0400, L500.4050, L501.9520 #### [facility] Laboratory [address] [place], [address] Comprehensive Metabolic Prof mson 12-04-2023 Albumin [Mass/Vol] 3.8 g/dL Normal 3.2-5.0 [facility] Comment on above: Performed By: #### L 500.4100, L503.0105, L501.78744, L100.0100, L506.0400, L500.4050, L501.9520 #### [facility] Laboratory [address] [place], [address] Albumin/Globulin [Mass ratio] 1.1 {ratio} Normal 0.9-2.4 [facility] Comment on above: Performed By: #### L 500.4100, L503.0105, L501.57506, L100.0100, L506.0400, L500.4050, L501.9520 #### [facility] Laboratory [address] [place], [address] ALK P 62 U/L Normal 45-117 [facility] Comment on above: Performed By: #### L 500.4100, L503.0105, L501.81440, L100.0100, L506.0400, L500.4050, L501.9520 #### [facility] Laboratory [address] [place], [address] ALT [Catalytic activity/Vol] 54 U/L Normal 13-56 [facility] Comment on above: Performed By: #### L 500.4100, L503.0105, L501.01144, L100.0100, L506.0400, L500.4050, L501.9520 #### [facility] Laboratory [address] [place], [address] AST [Catalytic activity/Vol] 18 U/L Normal 15-37 [facility] Comment on above: Performed By: #### L 500.4100, L503.0105, L501.01535, L100.0100, L506.0400, L500.4050, L501.9520 #### [facility] Laboratory [address] [place], [address] Bilirubin [Mass/Vol] 0.40 mg/dL Normal 0.20-1.00 [facility] Comment on above: Result Comment: For patients on eltrombopag therapy, use of Dimension [place] TBIL is not recommended. Performed By: #### L 500.4100, L503.0105, L501.21026, L100.0100, L506.0400, L500.4050, L501.9520 #### [facility] Laboratory [address] [place], [address] BUN/CRE 22.9 RATIO High 10-20 [facility] Comment on above: Performed By: #### L 500.4100, L503.0105, L501.79064, L100.0100, L506.0400, L500.4050, L501.9520 #### [facility] Laboratory [address] [place], [address] CA,Total 9.7 mg/dL Normal 8.5-10.1 [facility] Comment on above: Performed By: #### L 500.4100, L503.0105, L501.61599, L100.0100, L506.0400, L500.4050, L501.9520 #### [facility] Laboratory [address] [place], [address] Chloride [Moles/Vol] 110 mmol/L High 98-107 [facility] Comment on above: Performed By: #### L 500.4100, L503.0105, L501.80325, L100.0100, L506.0400, L500.4050, L501.9520 #### [facility] Laboratory [address] [place], [address] CO2 [Moles/Vol] 23.0 mmol/L Normal 21.0-32.0 [facility] Comment on above: Performed By: #### L 500.4100, L503.0105, L501.72052, L100.0100, L506.0400, L500.4050, L501.9520 #### [facility] Laboratory [address] [place], [address] Creatinine [Mass/Vol] 0.74 mg/dL Normal 0.55-1.02 [facility] Comment on above: Result Comment: The validity of the calculated GFR GFRAA in patients over 70 years has not been determined. Clinical correlation is essential. Performed By: #### L 500.4100, L503.0105, L501.48280, L100.0100, L506.0400, L500.4050, L501.9520 #### [facility] Laboratory [address] [place], [address] EST GFR - AA 101 mL/min Normal >60 [facility] Comment on above: Result Comment: Afri can Beninese GFR Calc Performed By: #### L 500.4100, L503.0105, L501.90866, L100.0100, L506.0400, L500.4050, L501.9520 #### [facility] Laboratory [address] [place], [address] GAP 6 Normal 5-15 [facility] Comment on above: Performed By: #### L 500.4100, L503.0105, L501.08703, L100.0100, L506.0400, L500.4050, L501.9520 #### [facility] Laboratory [address] [place], [address] GFR/1.73 sq M.predicted among non-blacks MDRD (S/P/Bld) [Vol rate/Area] 83 mL/min/{1.73_m2} Normal >60 [facility] Comment on above: Result Comment: Non- GFR Calc Performed By: #### L 500.4100, L503.0105, L501.44504, L100.0100, L506.0400, L500.4050, L501.9520 #### [facility] Laboratory [address] [place], [address] Globulin (S) [Mass/Vol] 3.5 g/dL Normal 2.2-4.2 [facility] Comment on above: Performed By: #### L 500.4100, L503.0105, L501.18606, L100.0100, L506.0400, L500.4050, L501.9520 #### [facility] Laboratory [address] [place], [address] Glucose [Mass/Vol] 96 mg/dL Normal 74-106 [facility] Comment on above: Performed By: #### L 500.4100, L503.0105, L501.40594, L100.0100, L506.0400, L500.4050, L501.9520 #### [facility] Laboratory [address] [place], [address] Potassium [Moles/Vol] 4.3 mmol/L Normal 3.5-5.1 [facility] Comment on above: Performed By: #### L 500.4100, L503.0105, L501.71950, L100.0100, L506.0400, L500.4050, L501.9520 #### [facility] Laboratory [address] [place], [address] Sodium [Moles/Vol] 139 mmol/L Normal 136-145 [facility] Comment on above: Performed By: #### L 500.4100, L503.0105, L501.13640, L100.0100, L506.0400, L500.4050, L501.9520 #### [facility] Laboratory [address] [place], [address] T PROT 7.3 g/dL Normal 6.4-8.2 [facility] Comment on above: Performed By: #### L 500.4100, L503.0105, L501.47365, L100.0100, L506.0400, L500.4050, L501.9520 #### [facility] Laboratory [address] [place], [place], [address] Urea nitrogen [Mass/Vol] 17 mg/dL Normal 7-18 [facility] Comment on above: Performed By: #### L 500.4100, L503.0105, L501.70825, L100.0100, L506.0400, L500.4050, L501.9520 #### [facility] Laboratory [address] [place], [address] Free T3on 12-04-2023 Free T3 [Mass/Vol] 2.4 pg/mL Normal 2.18-3.98 [facility] Comment on above: Performed By: #### L 500.4100, L503.0105, L501.72732, L100.0100, L506.0400, L500.4050, L501.9520 #### [facility] Laboratory [address] [place], [address] Lipid Profileon 12-04-2023 Cholesterol [Mass/Vol] 253 mg/dL High [address] [facility] Comment on above: Result Comment: <200 mg/dL Desirable 200-240 mg/dL Borderline >240 mg/dL High Risk Performed By: #### L 500.4100, L503.0105, L501.46966, L100.0100, L506.0400, L500.4050, L501.9520 #### [facility] Laboratory [address] [place], [address] Cholesterol in HDL [Mass/Vol] 59 mg/dL Normal [facility] Comment on above: Result Comment: The drugs N-Acetylcysteine and Metamizole may falsely depress this assay. Reference Range HDL <40 mg/dL Low HDL Cholesterol HDL >or= 60 mg/dL High HDL Cholesterol Performed By: #### L 500.4100, L503.0105, L501.77215, L100.0100, L506.0400, L500.4050, L501.9520 #### [facility] [address] [place], [address] Cholesterol in LDL [Mass/Vol] 161 mg/dL High 0-130 [facility] Comment on above: Performed By: #### L 500.4100, L503.0105, L501.46682, L100.0100, L506.0400, L500.4050, L501.9520 #### [facility] [address] [place], [address] Cholesterol in VLDL [Mass/Vol] 33 mg/dL Normal 5-40 [facility] Comment on above: Performed By: #### L 500.4100, L503.0105, L501.16543, L100.0100, L506.0400, L500.4050, L501.9520 #### [facility] [address] [place], [address] Triglyceride [Mass/Vol] 166 mg/dL Normal [facility] Comment on above: Result Comment: The drugs N-Acetylcysteine and Metamizole may falsely depress this assay. Serum Triglycerides Reference Interval Normal <150 mg/dL Borderline high 150 - 199 mg/dL High 200 - 499 mg/dL Very High > or = 500 mg/dL Performed By: #### L 500.4100, L503.0105, L501.58479, L100.0100, L506.0400, L500.4050, L501.9520 #### [facility] [address] [place], [address] T4 Free Directon 12-04-2023 T4 FREE DIRECT 1.11 ng/dL Normal 0.76-1.46 [facility] Comment on above: Performed By: #### L 500.4100, L503.0105, L501.11733, L100.0100, L506.0400, L500.4050, L501.9520 #### [facility] [address] [place], [address] Thyroid Stim Hormone (TSH)on 12-04-2023 TSH 0.94 uIU/mL Normal 0.358-3.74 [facility] Comment on above: Performed By: #### L 500.4100, L503.0105, L501.04040, L100.0100, L506.0400, L500.4050, L501.9520 #### [facility] [address] [place], [address] Vitamin B12on 12-04-2023 Cobalamin (Vitamin B12) [Mass/Vol] 158 pg/mL Low 211-911 [facility] Comment on above: Performed By: #### L 500.4100, L503.0105, L501.00561, L100.0100, L506.0400, L500.4050, L501.9520 #### [facility] [address] [place], [address] Absolute lymphocyte countOrd ered By: Dr. Peters on 11-06-2022 Lymphocytes Auto (Unsp spec) [#/Vol] 1.26 10*3/uL 0.83-4.51 [facility] Basophil percentageOrdered B y: Dr. Peters on 11-06-2022 Basophils/100 WBC (Bld) 0.6 % 0-1 [facility] Bilirubin [Mass/Vol] 0.40 mg/dL 0.20-1.00 [facility] Comment on above: For patients on eltr ombopag therapy, use of Dimension [place] TBIL is not recommended. Chloride [Moles/Vol] 110 mmol/L 98-107 [facility] Cholesterol [Mass/Vol] 262 mg/dL <200 [facility] Comment on above: <200 mg/dL Desirable 200-240 mg/dL Borderline >240 mg/dL High Risk Eosinophils/100 WBC (Bld) 3.5 % 0-5 [facility] Glucose [Mass/Vol] 106 mg/dL 74-106 [facility] Comment on above: Fasting Glucose resu lt from 100 to 125 mg/dL suggests IMPAIRED HOMEOSTASIS per A.D.A. criteria. Neutrophils (Bld) [#/Vol] 1.5 10*3/uL 2.0-7.7 [facility] Neutrophils/100 WBC (Bld) 46.4 % 47-70 [facility] Potassium [Moles/Vol] 4.5 mmol/L 3.5-5.1 [facility] Protein [Mass/Vol] 7.3 g/dL 6.4-8.2 [facility] Sodium [Moles/Vol] 138 mmol/L 136-145 [facility] Triglyceride [Mass/Vol] 172 mg/dL <199 [facility] Comment on above: The drugs N-Acetylcy steine and Metamizole may falsely depress this assay.Serum Triglycerides Reference Interval Normal <150 mg/dL Borderline high 150 - 199 mg/dL High 200 - 499 mg/dL Very High > or = 500 mg/dL WBC (Bld) [#/Vol] 3.2 10*3/uL 4.4-11.0 [facility] Blood erythrocytes count (nu mber/volume)Ordered By: Dr. Peters on 11-06-2022 RBC (Bld) [#/Vol] 4.39 10*6/uL 4.2-5.4 [facility] Blood hemoglobin measurement (mass/volume)Ordered By: Dr. Peters on 11-06-2022 Hemoglobin (Bld) [Mass/Vol] 13.9 g/dL 12.0-15.0 [facility] Blood lymphocytes/100 leukoc ytesOrdered By: Dr. Peters on 11-06-2022 Lymphocytes/100 WBC (Bld) 39.7 % 19-41 [facility] Blood monocytes/100 leukocyt esOrdered By: Dr. Peters on 11-06-2022 Monocytes/100 WBC (Bld) 9.5 % 0-10 [facility] Blood platelet mean volumeOr dered By: Dr. Peters on 11-06-2022 Platelet mean volume (Bld) [Entitic vol] 10.8 fL 6.2-12.0 [facility] Determination of erythrocyte mean corpuscular volume (MCV)Ordered By: Dr. Peters on 11-06-2022 MCV (RBC) [Entitic vol] 100.2 fL 81-99 [facility] Hematocrit Auto (Bld) [Volum e fraction]Ordered By: Dr. Peters on 11-06-2022 Hematocrit (Bld) [Volume fraction] 44.0 % 37-47 [facility] - Chemistry and C hemistry - challengeOrdered By: Dr. Peters on 11-06-2022 ALP [Catalytic activity/Vol] 66 U/L 45-117 [facility] ALT [Catalytic activity/Vol] 24 U/L 13-56 [facility] CO2 [Moles/Vol] 30.0 mmol/L 21.0-32.0 [facility] Globulin (S) [Mass/Vol] 3.4 g/dL 2.2-4.2 [facility] Urea nitrogen/Creatinine [Mass ratio] 26.1 mg/mg 10-20 [facility] - Hematology and Cell countsOrdered By: Dr. Peters on 11-06-2022 Erythrocyte distribution width (RBC) [Entitic vol] 49.1 fL 35.1-43.9 [facility] Erythrocyte distribution width (RBC) [Ratio] 13.2 % 11.6-14.6 [facility] Immature granulocytes/100 WBC (Bld) 0.300 % 0.0-0.9 [facility] Comment on above: IG% - Immature Granu locytes (promyelocytes, myelocytes and metamyelocytes) > 1% indicates that a LEFT SHIFT is Present. MCH (RBC) [Entitic mass] 31.7 pg 27.0-32.0 [facility] Nucleated RBC/100 WBC (Bld) [Ratio] 0 % 0-5 [facility] MCHC Auto (RBC) [Mass/Vol]Or dered By: Dr. Peters on 11-06-2022 MCHC (RBC) [Mass/Vol] 31.6 g/dL 32-36 [facility] No Panel InformationOrdered By: Dr. Peters on 11-06-2022 Estimated GFR (MDRD) Amer 92 mL/min >60 [facility] Comment on above: GFR Calc Estimated GFR (MDRD) Non-Af Amer 76 mL/min >60 [facility] Comment on above: Non- GFR Calc Platelets bldOrdered By: Dr. Peters on 11-06-2022 Platelets (Bld) [#/Vol] 207 10*3/uL 150-450 [facility] Serum or plasma albumin jesus urement (mass/volume)Ordered By: Dr. Peters on 11-06-2022 Albumin [Mass/Vol] 3.9 g/dL 3.2-5.0 [facility] Serum or plasma albumin/glob ulin mass ratioOrdered By: Dr. Peters on 11-06-2022 Albumin/Globulin [Mass ratio] 1.1 {ratio} 0.9-2.4 [facility] Serum or plasma calcium jesus urement (mass/volume)Ordered By: Dr. Peters on 11-06-2022 Calcium [Mass/Vol] 10.0 mg/dL 8.5-10.1 [facility] Serum or plasma cholesterol in HDL measurement (mass/volume)Ordered By: Dr. Peters on 11-06-2022 Cholesterol in HDL [Mass/Vol] 66 mg/dL >40 [facility] Comment on above: The drugs N-Acetylcy steine and Metamizole may falsely depress this assay. Reference Range HDL <40 mg/dL Low HDL Cholesterol HDL >or= 60 mg/dL High HDL Cholesterol Serum or plasma cholesterol in VLDL measurement (mass/volume)Ordered By: Dr. Peters on 11-06-2022 Cholesterol in VLDL [Mass/Vol] 34 mg/dL 5-40 [facility] Serum or plasma creatinine m easurement (mass/volume)Ordered By: Dr. Peters on 11-06-2022 Creatinine [Mass/Vol] 0.81 mg/dL 0.55-1.02 [facility] Comment on above: The validity of the calculated GFR & GFRAA in patients over 70 years has not been determined. Clinical correlation is essential. Serum or plasma low density lipoprotein (LDL) cholesterol measurement (mass/volume)Ordered By: Dr. Peters on 11-06-2022 Cholesterol in LDL [Mass/Vol] 162 mg/dL 0-130 [facility] Serum or plasma urea nitroge n measurement (mass/volume)Ordered By: Dr. Peters on 11-06-2022 Urea nitrogen [Mass/Vol] 21 mg/dL -18 [facility] Thin prep Papanicolaou smear with manual screeningOrdered By: Dr. Peters on 11-06-2022 Thin prep Papanicolaou smear with manual screening 11 U/L 15-37 [facility] Thin prep Papanicolaou smear with manual screening -2 5-15 [facility] Vital Signs Date Time Vital Sign Value Performing Clinician Zachariahi kenny 11-06-2024 12:30-0400 Body height 152.[address] Linh Peters DO Work Phone: [facility] 11-06-2024 12:30-0400 Body mass index (BMI) [Ratio] 25.7 kg/m2 Dr. Linh Peters DO Work Phone: [facility] 11-06-2024 12:30-0400 Body temperature 97.5 [degF] Dr. Linh Peters DO Work Phone: [facility] 11-06-2024 12:30-0400 Body weight 59.[address] Linh Peters DO Work Phone: [facility] 11-06-2024 12:30-0400 Diastolic blood pressure 57 mm[Hg] Dr. Linh Peters DO Work Phone: [facility] 11-06-2024 12:30-0400 Heart rate 70 /min Dr. Linh Peters DO Work Phone: [facility] 11-06-2024 12:30-0400 Respiratory rate 16 /min Dr. Linh Peters DO Work Phone: [facility] 11-06-2024 12:30-0400 SaO2% (BldA) [Mass fraction] 99 % Dr. Linh Peters DO Work Phone: [facility] 11-06-2024 12:30-0400 Systolic blood pressure 121 mm[Hg] Dr. Linh Peters DO Work Phone: [facility] 10-25-2023 12:57-0400 Body height 152.4 cm [facility] 10-25-2023 12:57-0400 Body mass index (BMI) [Ratio] 25.7 kg/m2 [facility] 10-25-2023 12:57-0400 Body temperature 96 [degF] [facility] 10-25-2023 12:57-0400 Body weight 59.87 kg [facility] 10-25-2023 12:57-0400 Diastolic blood pressure 62 mm[Hg] [facility] 10-25-2023 12:57-0400 Heart rate 66 /min [facility] 10-25-2023 12:57-0400 Respiratory rate 16 /min [facility] 10-25-2023 12:57-0400 SaO2% (BldA) [Mass fraction] 96 % [facility] 10-25-2023 12:57-0400 Systolic blood pressure 130 mm[Hg] [facility] 06-11-2022 11:16-0500 Body height 152.[address] Linh Peters Work Phone: [facility] Work Phone: 06-11-2022 11:16-0500 Body mass index (BMI) [Ratio] 25 kg/m2 Dr. Linh Peters Work Phone: [facility] Work Phone: 06-11-2022 11:16-0500 Body temperature 98.1 [degF] Dr. Linh Peters Work Phone: [facility] Work Phone: 06-11-2022 11:16-0500 Body weight 58.[address] Linh Peters Work Phone: [facility] Work Phone: 06-11-2022 11:16-0500 Diastolic blood pressure 82 mm[Hg] Dr. Linh Peters Work Phone: [facility] Work Phone: 06-11-2022 11:16-0500 Heart rate 80 /min Dr. Linh Peters Work Phone: [facility] Work Phone: 06-11-2022 11:16-0500 Respiratory rate 14 /min Dr. Linh Peters Work Phone: [facility] Work Phone: 06-11-2022 11:16-0500 SaO2% (BldA) [Mass fraction] 97 % Dr. Linh Peters Work Phone: [facility] Work Phone: 06-11-2022 11:16-0500 Systolic blood pressure 126 mm[Hg] Dr. Linh Peters Work Phone: [facility] Work Phone: 11-09-2021 13:26-0400 Body height 152.4 cm [facility] Work Phone: Encounters Encounter Date Encounter Type Care Provider Facility Start: 11-06-2024 End: 11-06-[address] Linh Peters DO -Medical Out Work Phone: Start: 11-06-2024 End: 11-06-[address] Linh Peters DO Work Phone: [facility] Work Phone: Start: 06-04-2024 End: 06-04-2024 ambulatory Linh Malys Facility:[facility] Start: 05-08-2024 End: 05-08-2024 ambulatory Linh Malys Facility:[facility] Start: 12-26-2023 End: 12-26-2023 ambulatory Linh Malys Facility:[facility] Start: 12-04-2023 End: 12-04-2023 ambulatory Linh Malys Facility:[facility] Start: 10-25-2023 End: 10-25-2023 ambulatory [facility] Work Phone: Start: 10-25-2023 End: 10-25-2023 Patient encounter procedure [facility]-Medical Out Work Phone: Start: 11-14-2022 End: 11-14-2022 ambulatory [facility] Work Phone: Start: 11-14-2022 End: 11-14-2022 Patient encounter procedure [facility]-Outpatient Breast Imaging Start: 11-06-2022 End: 11-06-2022 ambulatory [facility] Work Phone: Start: 11-06-2022 End: 11-06-2022 Patient encounter procedure [facility]-Laboratory Start: 07-09-2022 End: 07-09-[address] Linh Peters Work Phone: [facility] Start: 07-05-2022 End: 07-05-[address] Linh Peters Work Phone: [facility] Work Phone: Start: 07-05-2022 End: 07-05-[address] Linh Peters Work Phone: [facility] Start: 06-13-2022 End: 06-13-[address] Linh Peters Work Phone: [facility] Start: 06-11-2022 End: 06-11-[address] Linh Peters Work Phone: [facility] Start: 11-09-2021 End: 11-09-2021 Patient encounter procedure [facility]-Outpatient Breast Imaging Procedures Date Procedure Procedure Detail Performing Clinician Start: 11-14-2022 Screening mammography Start: 07-05-2022 MRI of joint of lowe r extremity Dr. Linh Peters Work Phone: Start: 06-11-2022 Radiologic examinati on of knee Dr. Linh Peters Work Phone: Start: 11-09-2021 Screening mammography Plan of Treatment Date Care Activity Detail Author Start: 06-11-2022 Patient referral [facility] Work Phone: Start: 11-09-2021 Dual energy X-ray absorptiometry Dexa Bone Density Study [facility] Work Phone: Patient referral [facility] Work Phone: Immunizations Immunization Date Immunization Notes Care Provider Fa carlitos 10-13-2020 Covid (Pfizer) [facility] 09-22-2020 Covid (Pfizer) [facility] 05-26-2018 influenza, injectabl e, quadrivalent, preservative free [facility] 05-26-2018 influenza, seasonal, injectable [facility] 06-19-2017 influenza, injectabl e, quadrivalent, preservative free [facility] 06-19-2017 influenza, seasonal, injectable [facility] 04-19-2016 influenza, injectabl e, quadrivalent, preservative free [facility] 04-19-2016 influenza, seasonal, injectable [facility] 06-06-2015 influenza, injectabl e, quadrivalent, preservative free [facility] 06-06-2015 influenza, seasonal, injectable [facility] 04-21-2014 influenza, injectabl e, quadrivalent, preservative free [facility] 04-21-2014 influenza, seasonal, [facility] Payers Date Payer Category Payer Self-pay [id number] 2023 Medicare [id number] 210 [id number] 2023 [id number] 2013 [id number] ad [id number] Unknown [id number] Unknown [id number] [id number] Unknown [id number] [id number] Unknown [id number] [id number] [id number] Unknown [id number] [id number] [id number] Social History Date Type Detail Facility Start: 11-24-2017 End: 07-09-2022 Tobacco smoking status SCIS Unknown if ever smoked [facility] Start: 1955 Sex Assigned At Female [facility] Start: 07-09-2022 [facility] Start: 11-07-2024 Sex Female (finding) [facility] Mental Status Date Assessment Result Facility 11-06-2024 Cognitive function Voice/Name [facility] Work Phone: 10-25-2023 Cognitive function Voice/Name [facility] Work Phone: Evaluation note Note Date & Type Note Facility Evaluation note No assessment information availa ble [facility] Work Phone: Evaluation note Note Date & Type Note Facility Evaluation note Diagnosis Onset Date Contusion of left knee acute Strain of left knee acute Contusion of left knee acute Strain of left knee acute Contusion of left knee acute Sprain of left patella acute [facility] Work Phone: Reason for referral (narrative) Note Date & Type Note Facility Reason for referral (narrative) No reason for referral information available [facility] Work Phone: Chief Complaint and Reason for Visit Chief Complaint SCREENING Chief Complaint LEFT KNEE INJURY XRAY LEFT KNEE LEFT KNEE LEFT KNEE PAIN LEFT KNEE Reason for Visit Contusion of left kn ee Strain of left knee Contusion of left knee Strain of left knee Contusion of left knee Sprain of left patella Chief Complaint PROLIA Chief Complaint Admit Date PROLIA November 06, 2024 12: 17pm Advance Directives No Advanced Directives Records Found Advance Directive Response Recorded Date/ Time Advance Directives No March 7:15am Living Will No April 13, 2014 7:15am Power of Municipal Court Judge No March 7:15am Advance Directive Response Recorded Date/ Time Advance Directives No March 6:15am Living Will No April 13, 2014 6:15am Power of Municipal Court Judge No March 6:15am Advance Directive Response Recorded Date/ Time Living Will No April 13, 2014 7:15am Do you have a Healthcare Power of Municipal Court Judge? No April 13, 2014 7:15am Advance Directives No March 7:15am Family History No Family History Records Found Relationship Condition Age at Onset Recorded Date/T lesli mother Cardiac disease Unknown father Cerebrovascular accident (CVA) Unknown Summary Purpose Additional Source Comments Goals (unrecognized section and content) Goals may be documented in a n alternate sectionGoals may be documented in an alternate sectionGoals may be documented in an alternate sectionGoals may be documented in an alternate sectionGoals may be documented in an alternate sectionGoals may be documented in an alternate section Care Teams (unrecognized sec tion and content) Team Status: Active Member Role Status Dates Dr. Linh Peters DO Family Provider Active Dr. Linh Peters DO Primary Care Provider Active Team Status: Inactive Member Role Status Dates Dr. Linh Peters DO Primary Care Provide r, Attending Provider, Referring Provider Active Team Status: Active Member Role Status Dates Dr. Linh Peters DO Primary Care Provider Active Team Status: Inactive Member Role Status Dates Dr. Linh Malys , DO Primary Care Provider Active Start: November 06, 2024 End: November 06, 2024 Dr. Linh Peters DO Attending Provider Active St art: November 06, 2024 End: November 06, 2024 Dr. Linh Peters , Referring Provider Active St art: November 06, 2024 End: November 06, 2024 INFORMATION SOURCE (unrecogn ized section and content) DATE CREATED AUTHOR 11/11/2024 [facility] FOR RECORDS PERTAINING TO PATIENTS WHO ARE OR HAVE BEEN ENROLLED IN A CHEMICAL DEPENDENCY/SUBSTANCEABUSE PROGRAM, SOME INFORMATION MAY BE OMITTED. This clinical summary was aggregated from multiple sources. Caution should be exercised in using it in the provision of clinical care. This summary normalizes information from multiple sources, and as a consequence, information in this document may materially change the coding, format and clinical context of patient data. In addition, data may be omitted in some cases. CLINICAL DECISIONS SHOULD BE BASED ON THE PRIMARY CLINICAL RECORDS. [facility]. provides no warranty or guarantee of the accuracy or completeness of information in this document.
--- OUTSIDE RECORDS SUMMARY | 2025-01-19 10:46 | XMS RPT_ITS | CCD ---
Author Organization [facility] Care Team Providers Care Supervisor Stone Name Role Phone Dr. Linh Peters Primary Care Provider Dr. Linh Peters Referring Provider [phone] Ai KULKARNI PA Reed Mathis Attending Provider Shawanda KULKARNI PA Twin Attending Provider [phone] Dr. Linh Peters DO Primary Care Provider Dr. Linh Peters DO Attending Provider Dr. Linh Peters DO Referring Provider Malys, Linh Primary Care Unavailable Malys, Linh [...] Bone Density Studyon Dexa Bone Density Study [facility] Imaging Services [address] [place], [place] [address] Dexa Bone Density Study MR#: [id number] Acct: [id number] Name: GARCIA FARRELL Rep #: [id number] : 1955 F 68 From: Bean lopez MD PCP: Dr. Linh Peters DO Status: REG CLI Study: Dexa Bone Density Study Date of Exam: 06/04/24 Exam# [id number] Ordering Dr: Linh Peters DO -[id number] STUDY: DUAL ENERGY X-RAY ABSORPTIOMETRY / [...] 15:25 EST , CC: Dr. Linh Peters, Patient Services Representative: Signed Normal [facility] SCRN MAMM (CAD)W/REUBEN Thakkar n 06-04-2024 SCRN MAMM (CAD)W/REUBEN BILAT [facility] Imaging Services [address] [place], [place] [address] SCRN MAMM (CAD)W/REUBEN IRIZARRY MR#: [id number] Acct: [id number] Name: GARCIA FARRELL Rep #: [id number] : 1955 F 68 From: Bean lopez MD PCP: Dr. Linh Peters DO Status: [facility] Study: SCRN MAMM (CAD)W/REUBEN BILAT Date of Exam: 05/22 11/12 Exam# [id number] Ordering Dr: Linh Peters DO -[id number] MAMMOGRAPHY - BILATERAL SCREENING REASON FOR [...] delay biopsy of a clinically suspicious abnormality. [id number] Electronically Signed: Bean Carter MD at 15:48 EST , CC: Dr. Linh Peters DO Patient Services Representative: Signed Normal [facility] Thoracic Spine 3 Viewson Thoracic Spine 3 Views [facility] Imaging Services [address] [place] [address] Thoracic Spine 3 Views MR#: [id number] Acct: [id number] Name: GARCIA FARRELL Rep #: [id number] : 1955 F 68 From: Bennett Cedillo DO PCP: Dr. Linh Peters DO Status: REG CLI Study: Thoracic Spine 3 Views Date of Exam: 12/26/23 Exam# [id number] Ordering Dr: Linh Peters DO -[id number] INDICATION: THORACIC BACK PAIN EXAMINATION/TECHNIQ UE: [...] EDT , CC: Dr. Linh Peters DO Patient Services Representative: Signed Normal [facility] CBC W/Diff, Automatedon 05- Absolute Lymph 1.28 X10 3/uL Normal 0.83-4.51 [facility] Comment on above: Performed By: #### L 500.4100, L503.0105, L501.10230, L100.0100, L506.0400, L500.4050, L501.9520 #### [facility] [address] [place], [address] Absolute Neut 1.5 X10 3/uL Low 2.0-7.7 [facility] Comment on above: Performed By: #### L 500.4100, L503.0105, L501.76611, L100.0100, L506.0400, L500.4050, L501.9520 #### [facility] [address] [place], [address] Basophils/100 WBC (Bld) 0.9 % Normal 0-1 [facility] Comment on above: Performed By: #### L 500.4100, L503.0105, L501.49881, L100.0100, L506.0400, L500.4050, L501.9520 #### [facility] [address] [place], [address] Eosinophils/100 WBC (Bld) 3.6 % Normal 0-5 [facility] Comment on above: Performed By: #### L 500.4100, L503.0105, L501.74404, L100.0100, L506.0400, L500.4050, L501.9520 #### [facility] [address] [place], [address] Erythrocyte distribution width (RBC) [Ratio] 13.0 % Normal 11.6-14.6 [facility] Comment on above: Performed By: #### L 500.4100, L503.0105, L501.48001, L100.0100, L506.0400, L500.4050, L501.9520 #### [facility] [address] [place], [address] Hematocrit (Bld) [Volume fraction] 42.2 % Normal 37-47 [facility] Comment on above: Performed By: #### L 500.4100, L503.0105, L501.84861, L100.0100, L506.0400, L500.4050, L501.9520 #### [facility] [address] [place], [address] Hemoglobin (Bld) [Mass/Vol] 13.4 g/dL Normal 12.0-15.0 [facility] Comment on above: Performed By: #### L 500.4100, L503.0105, L501.42021, L100.0100, L506.0400, L500.4050, L501.9520 #### [facility] [address] [place], [address] IG% 0.300 Normal 0.0-0.9 [facility] Comment on above: Result Comment: IG% - Immature Granulocytes (promyelocytes, myelocytes and metamyelocytes) > 1% indicates that a LEFT SHIFT is Present. Performed By: #### L 500.4100, L503.0105, L501.66651, L100.0100, L506.0400, L500.4050, L501.9520 #### [facility] [address] [place], [address] Lymphocytes/100 WBC (Bld) 38.9 % Normal 19-41 [facility] Comment on above: Performed By: #### L 500.4100, L503.0105, L501.57331, L100.0100, L506.0400, L500.4050, L501.9520 #### [facility] [address] [place], [address] MCH (RBC) [Entitic mass] 31.5 pg Normal 27.0-32.0 [facility] Comment on above: Performed By: #### L 500.4100, L503.0105, L501.03854, L100.0100, L506.0400, L500.4050, L501.9520 #### [facility] [address] [place], [address] MCHC (RBC) [Mass/Vol] 31.8 g/dL Low 32-36 [facility] Comment on above: Performed By: #### L 500.4100, L503.0105, L501.35972, L100.0100, L506.0400, L500.4050, L501.9520 #### [facility] [address] [place], [address] MCV (RBC) [Entitic vol] 99.1 fL High 81-99 [facility] Comment on above: Performed By: #### L 500.4100, L503.0105, L501.82767, L100.0100, L506.0400, L500.4050, L501.9520 #### [facility] [address] [place], [address] Monocytes/100 WBC (Bld) 9.7 % Normal 0-10 [facility] Comment on above: Performed By: #### L 500.4100, L503.0105, L501.56169, L100.0100, L506.0400, L500.4050, L501.9520 #### [facility] [address] [place], [address] Neutrophils/100 WBC (Bld) 46.6 % Low 47-70 [facility] Comment on above: Performed By: #### L 500.4100, L503.0105, L501.75319, L100.0100, L506.0400, L500.4050, L501.9520 #### [facility] [address] [place], [address] Nucleated RBC (Bld) [#/Vol] 0 10*3/uL Normal 0-5 [facility] Comment on above: Performed By: #### L 500.4100, L503.0105, L501.18318, L100.0100, L506.0400, L500.4050, L501.9520 #### [facility] [address] [place], [address] Platelet mean volume (Bld) [Entitic vol] 11.3 fL Normal 6.2-12.0 [facility] Comment on above: Performed By: #### L 500.4100, L503.0105, L501.56053, L100.0100, L506.0400, L500.4050, L501.9520 #### [facility] [address] [place], [address] Platelets (Bld) [#/Vol] 204 10*3/uL Normal 150-450 [facility] Comment on above: Performed By: #### L 500.4100, L503.0105, L501.11537, L100.0100, L506.0400, L500.4050, L501.9520 #### [facility] [address] [place], [address] RBC (Bld) [#/Vol] 4.26 10*6/uL Normal 4.2-5.4 [facility] Comment on above: Performed By: #### L 500.4100, L503.0105, L501.43495, L100.0100, L506.0400, L500.4050, L501.9520 #### [facility] [address] [place], [address] RDW SD 46.9 fl High 35.1-43.9 [facility] Comment on above: Performed By: #### L 500.4100, L503.0105, L501.59199, L100.0100, L506.0400, L500.4050, L501.9520 #### [facility] [address] [place], [address] WBC (Bld) [#/Vol] 3.3 10*3/uL Low 4.4-11.0 [facility] Comment on above: Performed By: #### L 500.4100, L503.0105, L501.89536, L100.0100, L506.0400, L500.4050, L501.9520 #### [facility] [address] [place], [address] Comprehensive Metabolic Prof aron 12-04-2023 Albumin [Mass/Vol] 3.8 g/dL Normal 3.2-5.0 [facility] Comment on above: Performed By: #### L 500.4100, L503.0105, L501.54494, L100.0100, L506.0400, L500.4050, L501.9520 #### [facility] [address] [place], [address] Albumin/Globulin [Mass ratio] 1.1 {ratio} Normal 0.9-2.4 [facility] Comment on above: Performed By: #### L 500.4100, L503.0105, L501.08740, L100.0100, L506.0400, L500.4050, L501.9520 #### [facility] [address] [place], [address] ALK P 62 U/L Normal 45-117 [facility] Comment on above: Performed By: #### L 500.4100, L503.0105, L501.95693, L100.0100, L506.0400, L500.4050, L501.9520 #### [facility] [address] [place], [address] ALT [Catalytic activity/Vol] 54 U/L Normal 13-56 [facility] Comment on above: Performed By: #### L 500.4100, L503.0105, L501.15212, L100.0100, L506.0400, L500.4050, L501.9520 #### [facility] [address] [place], [address] AST [Catalytic activity/Vol] 18 U/L Normal 15-37 [facility] Comment on above: Performed By: #### L 500.4100, L503.0105, L501.40069, L100.0100, L506.0400, L500.4050, L501.9520 #### [facility] [address] [place], [address] Bilirubin [Mass/Vol] 0.40 mg/dL Normal 0.20-1.00 [facility] Comment on above: Result Comment: For patients on eltrombopag therapy, use of Dimension [place] TBIL is not recommended. Performed By: #### L 500.4100, L503.0105, L501.90447, L100.0100, L506.0400, L500.4050, L501.9520 #### [facility] [address] [place], [address] BUN/CRE 22.9 RATIO High 10-20 [facility] Comment on above: Performed By: #### L 500.4100, L503.0105, L501.50676, L100.0100, L506.0400, L500.4050, L501.9520 #### [facility] [address] [place], [address] CA,Total 9.7 mg/dL Normal 8.5-10.1 [facility] Comment on above: Performed By: #### L 500.4100, L503.0105, L501.85034, L100.0100, L506.0400, L500.4050, L501.9520 #### [facility] [address] [place], [address] Chloride [Moles/Vol] 110 mmol/L High 98-107 [facility] Comment on above: Performed By: #### L 500.4100, L503.0105, L501.69323, L100.0100, L506.0400, L500.4050, L501.9520 #### [facility] [address] [place], [address] CO2 [Moles/Vol] 23.0 mmol/L Normal 21.0-32.0 [facility] Comment on above: Performed By: #### L 500.4100, L503.0105, L501.41410, L100.0100, L506.0400, L500.4050, L501.9520 #### [facility] [address] [place], [address] Creatinine [Mass/Vol] 0.74 mg/dL Normal 0.55-1.02 [facility] Comment on above: Result Comment: The validity of the calculated GFR GFRAA in patients over 70 years has not been determined. Clinical correlation is essential. Performed By: #### L 500.4100, L503.0105, L501.30722, L100.0100, L506.0400, L500.4050, L501.9520 #### [facility] [address] [place], [address] EST GFR - AA 101 mL/min Normal >60 [facility] Comment on above: Result Comment: Afri can Indian GFR Calc Performed By: #### L 500.4100, L503.0105, L501.54721, L100.0100, L506.0400, L500.4050, L501.9520 #### [facility] [address] [place], [address] GAP 6 Normal 5-15 [facility] Comment on above: Performed By: #### L 500.4100, L503.0105, L501.57702, L100.0100, L506.0400, L500.4050, L501.9520 #### [facility] [address] [place], [address] GFR/1.73 sq M.predicted among non-blacks MDRD (S/P/Bld) [Vol rate/Area] 83 mL/min/{1.73_m2} Normal >60 [facility] Comment on above: Result Comment: Non- GFR Calc Performed By: #### L 500.4100, L503.0105, L501.80021, L100.0100, L506.0400, L500.4050, L501.9520 #### [facility] [address] [place], [address] Globulin (S) [Mass/Vol] 3.5 g/dL Normal 2.2-4.2 [facility] Comment on above: Performed By: #### L 500.4100, L503.0105, L501.96863, L100.0100, L506.0400, L500.4050, L501.9520 #### [facility] [address] [place], [address] Glucose [Mass/Vol] 96 mg/dL Normal 74-106 [facility] Comment on above: Performed By: #### L 500.4100, L503.0105, L501.77406, L100.0100, L506.0400, L500.4050, L501.9520 #### [facility] [address] [place], [address] Potassium [Moles/Vol] 4.3 mmol/L Normal 3.5-5.1 [facility] Comment on above: Performed By: #### L 500.4100, L503.0105, L501.39823, L100.0100, L506.0400, L500.4050, L501.9520 #### [facility] [address] [place], [address] Sodium [Moles/Vol] 139 mmol/L Normal 136-145 [facility] Comment on above: Performed By: #### L 500.4100, L503.0105, L501.32220, L100.0100, L506.0400, L500.4050, L501.9520 #### [facility] [address] [place], [address] T PROT 7.3 g/dL Normal 6.4-8.2 [facility] Comment on above: Performed By: #### L 500.4100, L503.0105, L501.48691, L100.0100, L506.0400, L500.4050, L501.9520 #### [facility] [address] [place], [place], [address] Urea nitrogen [Mass/Vol] 17 mg/dL Normal 7-18 [facility] Comment on above: Performed By: #### L 500.4100, L503.0105, L501.74430, L100.0100, L506.0400, L500.4050, L501.9520 #### [facility] [address] [place], [address] Free T3on 12-04-2023 Free T3 [Mass/Vol] 2.4 pg/mL Normal 2.18-3.98 [facility] Comment on above: Performed By: #### L 500.4100, L503.0105, L501.31174, L100.0100, L506.0400, L500.4050, L501.9520 #### [facility] [address] [place], [address] Lipid Profileon 12-04-2023 Cholesterol [Mass/Vol] 253 mg/dL High 200 [facility] Comment on above: Result Comment: <200 mg/dL Desirable 200-240 mg/dL Borderline >240 mg/dL High Risk Performed By: #### L 500.4100, L503.0105, L501.39833, L100.0100, L506.0400, L500.4050, L501.9520 #### [facility] [address] [place], [address] Cholesterol in HDL [Mass/Vol] 59 mg/dL Normal [facility] Comment on above: Result Comment: The drugs N-Acetylcysteine and Metamizole may falsely depress this assay. Reference Range HDL <40 mg/dL Low HDL Cholesterol HDL >or= 60 mg/dL High HDL Cholesterol Performed By: #### L 500.4100, L503.0105, L501.96232, L100.0100, L506.0400, L500.4050, L501.9520 #### [facility] [address] [place], [address] Cholesterol in LDL [Mass/Vol] 161 mg/dL High 0-130 [facility] Comment on above: Performed By: #### L 500.4100, L503.0105, L501.30185, L100.0100, L506.0400, L500.4050, L501.9520 #### [facility] [address] [place], [address] Cholesterol in VLDL [Mass/Vol] 33 mg/dL Normal 5-40 [facility] Comment on above: Performed By: #### L 500.4100, L503.0105, L501.56799, L100.0100, L506.0400, L500.4050, L501.9520 #### [facility] [address] [place], [address] Triglyceride [Mass/Vol] 166 mg/dL Normal [facility] Comment on above: Result Comment: The drugs N-Acetylcysteine and Metamizole may falsely depress this assay. Serum Triglycerides Reference Interval Normal <150 mg/dL Borderline high 150 - 199 mg/dL High 200 - 499 mg/dL Very High > or = 500 mg/dL Performed By: #### L 500.4100, L503.0105, L501.23682, L100.0100, L506.0400, L500.4050, L501.9520 #### [facility] [address] [place], [address] T4 Free Directon 12-04-2023 T4 FREE DIRECT 1.11 ng/dL Normal 0.76-1.46 [facility] Comment on above: Performed By: #### L 500.4100, L503.0105, L501.73507, L100.0100, L506.0400, L500.4050, L501.9520 #### [facility] [address] [facility], [address] Thyroid Stim Hormone (TSH)on 12-04-2023 TSH 0.94 uIU/mL Normal 0.358-3.74 [facility] Comment on above: Performed By: #### L 500.4100, L503.0105, L501.34447, L100.0100, L506.0400, L500.4050, L501.9520 #### [facility] [address] [place], [address] Vitamin B12on 12-04-2023 Cobalamin (Vitamin B12) [Mass/Vol] 158 pg/mL Low 211-911 [facility] Comment on above: Performed By: #### L 500.4100, L503.0105, L501.86819, L100.0100, L506.0400, L500.4050, L501.9520 #### [facility] [address] [facility], [address] Absolute lymphocyte countOrd ered By: Dr. Peters on 11-06-2022 Lymphocytes Auto (Unsp spec) [#/Vol] 1.26 10*3/uL 0.83-4.51 [facility] Basophil percentageOrdered B y: Dr. Peters on 11-06-2022 Basophils/100 WBC (Bld) 0.6 % 0-1 [facility] Bilirubin [Mass/Vol] 0.40 mg/dL 0.20-1.00 [facility] Comment on above: For patients on eltr ombopag therapy, use of Dimension [place] TBIL is not recommended. Chloride [Moles/Vol] 110 mmol/L 98-107 [facility] Cholesterol [Mass/Vol] 262 mg/dL <200 [facility] Comment on above: <200 mg/dL Desirable 200-240 mg/dL Borderline >240 mg/dL High Risk Eosinophils/100 WBC (Bld) 3.5 % 0-5 [facility] Glucose [Mass/Vol] 106 mg/dL 74-106 [facility] Comment on above: Fasting Glucose resu lt from 100 to 125 mg/dL suggests IMPAIRED HOMEOSTASIS per A.D.A. criteria. Neutrophils (Bld) [#/Vol] 1.5 10*3/uL 2.0-7.7 [facility] Neutrophils/100 WBC (Bld) 46.4 % 47-70 [facility] Potassium [Moles/Vol] 4.5 mmol/L 3.5-5.1 [facility] Protein [Mass/Vol] 7.3 g/dL 6.4-8.2 [facility] Sodium [Moles/Vol] 138 mmol/L 136-145 [facility] Triglyceride [Mass/Vol] 172 mg/dL <199 [facility] Comment on above: The drugs N-Acetylcy steine and Metamizole may falsely depress this assay.Serum Triglycerides Reference Interval Normal <150 mg/dL Borderline high 150 - 199 mg/dL High 200 - 499 mg/dL Very High > or = 500 mg/dL WBC (Bld) [#/Vol] 3.2 10*3/uL 4.4-11.0 [facility] Blood erythrocytes count (nu mber/volume)Ordered By: Dr. Peters on 11-06-2022 RBC (Bld) [#/Vol] 4.39 10*6/uL 4.2-5.4 [facility] Blood hemoglobin measurement (mass/volume)Ordered By: Dr. Peters on 11-06-2022 Hemoglobin (Bld) [Mass/Vol] 13.9 g/dL 12.0-15.0 [facility] Blood lymphocytes/100 leukoc ytesOrdered By: Dr. Peters on 11-06-2022 Lymphocytes/100 WBC (Bld) 39.7 % 19-41 [facility] Blood monocytes/100 leukocyt esOrdered By: Dr. Peters on 11-06-2022 Monocytes/100 WBC (Bld) 9.5 % 0-10 [facility] Blood platelet mean volumeOr dered By: Dr. Peters on 11-06-2022 Platelet mean volume (Bld) [Entitic vol] 10.8 fL 6.2-12.0 [facility] Determination of erythrocyte mean corpuscular volume (MCV)Ordered By: Dr. Peters on 11-06-2022 MCV (RBC) [Entitic vol] 100.2 fL 81-99 [facility] Hematocrit Auto (Bld) [Volum e fraction]Ordered By: Dr. Peters on 11-06-2022 Hematocrit (Bld) [Volume fraction] 44.0 % 37-47 [facility] - Chemistry and C hemistry - challengeOrdered By: Dr. Peters on 11-06-2022 ALP [Catalytic activity/Vol] 66 U/L 45-117 [facility] ALT [Catalytic activity/Vol] 24 U/L 13-56 [facility] CO2 [Moles/Vol] 30.0 mmol/L 21.0-32.0 [facility] Globulin (S) [Mass/Vol] 3.4 g/dL 2.2-4.2 [facility] Urea nitrogen/Creatinine [Mass ratio] 26.1 mg/mg 10-20 [facility] - Hematology and Cell countsOrdered By: Dr. Peters on 11-06-2022 Erythrocyte distribution width (RBC) [Entitic vol] 49.1 fL 35.1-43.9 [facility] Erythrocyte distribution width (RBC) [Ratio] 13.2 % 11.6-14.6 [facility] Immature granulocytes/100 WBC (Bld) 0.300 % 0.0-0.9 [facility] Comment on above: IG% - Immature Granu locytes (promyelocytes, myelocytes and metamyelocytes) > 1% indicates that a LEFT SHIFT is Present. MCH (RBC) [Entitic mass] 31.7 pg 27.0-32.0 [facility] Nucleated RBC/100 WBC (Bld) [Ratio] 0 % 0-5 [facility] MCHC Auto (RBC) [Mass/Vol]Or dered By: Dr. Peters on 11-06-2022 MCHC (RBC) [Mass/Vol] 31.6 g/dL 32-36 [facility] No Panel InformationOrdered By: Dr. Peters on 11-06-2022 Estimated GFR (MDRD) Amer 92 mL/min >60 [facility] Comment on above: GFR Calc Estimated GFR (MDRD) Non-Af Amer 76 mL/min >60 [facility] Comment on above: Non- GFR Calc Platelets bldOrdered By: Dr. Peters on 11-06-2022 Platelets (Bld) [#/Vol] 207 10*3/uL 150-450 [facility] Serum or plasma albumin jesus urement (mass/volume)Ordered By: Dr. Peters on 11-06-2022 Albumin [Mass/Vol] 3.9 g/dL 3.2-5.0 [facility] Serum or plasma albumin/glob ulin mass ratioOrdered By: Dr. Peters on 11-06-2022 Albumin/Globulin [Mass ratio] 1.1 {ratio} 0.9-2.4 [facility] Serum or plasma calcium jesus urement (mass/volume)Ordered By: Dr. Peters on 11-06-2022 Calcium [Mass/Vol] 10.0 mg/dL 8.5-10.1 [facility] Serum or plasma cholesterol in HDL measurement (mass/volume)Ordered By: Dr. Peters on 11-06-2022 Cholesterol in HDL [Mass/Vol] 66 mg/dL >40 [facility] Comment on above: The drugs N-Acetylcy steine and Metamizole may falsely depress this assay. Reference Range HDL <40 mg/dL Low HDL Cholesterol HDL >or= 60 mg/dL High HDL Cholesterol Serum or plasma cholesterol in VLDL measurement (mass/volume)Ordered By: Dr. Peters on 11-06-2022 Cholesterol in VLDL [Mass/Vol] 34 mg/dL 5-40 [facility] Serum or plasma creatinine m easurement (mass/volume)Ordered By: Dr. Peters on 11-06-2022 Creatinine [Mass/Vol] 0.81 mg/dL 0.55-1.02 [facility] Comment on above: The validity of the calculated GFR & GFRAA in patients over 70 years has not been determined. Clinical correlation is essential. Serum or plasma low density lipoprotein (LDL) cholesterol measurement (mass/volume)Ordered By: Dr. Peters on 11-06-2022 Cholesterol in LDL [Mass/Vol] 162 mg/dL 0-130 [facility] Serum or plasma urea nitroge n measurement (mass/volume)Ordered By: Dr. Peters on 11-06-2022 Urea nitrogen [Mass/Vol] 21 mg/dL -18 [facility] Thin prep Papanicolaou smear with manual screeningOrdered By: Dr. Peters on 11-06-2022 Thin prep Papanicolaou smear with manual screening 11 U/L 15-37 [facility] Thin prep Papanicolaou smear with manual screening -2 5-15 [facility] Vital Signs Date Time Vital Sign Value Performing Clinician Zachariahi kenny 11-06-2024 12:30-0400 Body height 152.[address] Linh Peters DO Work Phone: [facility] 11-06-2024 12:30-0400 Body mass index (BMI) [Ratio] 25.7 kg/m2 Dr. Linh Peters DO Work Phone: [facility] 11-06-2024 12:30-0400 Body temperature 97.5 [degF] Dr. Linh Peters DO Work Phone: [facility] 11-06-2024 12:30-0400 Body weight 59.[address] Linh Peters DO Work Phone: [facility] 11-06-2024 12:30-0400 Diastolic blood pressure 57 mm[Hg] Dr. Linh Peters DO Work Phone: [facility] 11-06-2024 12:30-0400 Heart rate 70 /min Dr. Linh Peters DO Work Phone: [facility] 11-06-2024 12:30-0400 Respiratory rate 16 /min Dr. Linh Peters DO Work Phone: [facility] 11-06-2024 12:30-0400 SaO2% (BldA) [Mass fraction] 99 % Dr. Linh Peters DO Work Phone: [facility] 11-06-2024 12:30-0400 Systolic blood pressure 121 mm[Hg] Dr. Linh Peters DO Work Phone: [facility] 10-25-2023 12:57-0400 Body height 152.4 cm [facility] 10-25-2023 12:57-0400 Body mass index (BMI) [Ratio] 25.7 kg/m2 [facility] 10-25-2023 12:57-0400 Body temperature 96 [degF] [facility] 10-25-2023 12:57-0400 Body weight 59.87 kg [facility] 10-25-2023 12:57-0400 Diastolic blood pressure 62 mm[Hg] [facility] 10-25-2023 12:57-0400 Heart rate 66 /min [facility] 10-25-2023 12:57-0400 Respiratory rate 16 /min [facility] 10-25-2023 12:57-0400 SaO2% (BldA) [Mass fraction] 96 % [facility] 10-25-2023 12:57-0400 Systolic blood pressure 130 mm[Hg] [facility] 06-11-2022 11:16-0500 Body height 152.[address] Linh Peters Work Phone: [facility] Work Phone: 06-11-2022 11:16-0500 Body mass index (BMI) [Ratio] 25 kg/m2 Dr. Linh Peters Work Phone: [facility] Work Phone: 06-11-2022 11:16-0500 Body temperature 98.1 [degF] Dr. Linh Peters Work Phone: [facility] Work Phone: 06-11-2022 11:16-0500 Body weight 58.[address] Linh Peters Work Phone: [facility] Work Phone: 06-11-2022 11:16-0500 Diastolic blood pressure 82 mm[Hg] Dr. Linh Peters Work Phone: [facility] Work Phone: 06-11-2022 11:16-0500 Heart rate 80 /min Dr. Linh Peters Work Phone: [facility] Work Phone: 06-11-2022 11:16-0500 Respiratory rate 14 /min Dr. Linh Peters Work Phone: [facility] Work Phone: 06-11-2022 11:16-0500 SaO2% (BldA) [Mass fraction] 97 % Dr. Linh Peters Work Phone: [facility] Work Phone: 06-11-2022 11:16-0500 Systolic blood pressure 126 mm[Hg] Dr. Linh Peters Work Phone: [facility] Work Phone: 11-09-2021 13:26-0400 Body height 152.4 cm [facility] Work Phone: Encounters Encounter Date Encounter Type Care Provider Facility Start: 11-06-2024 End: 11-06-[address] Linh Peters DO -[facility] Work Phone: Start: 11-06-2024 End: 11-06-[address] Linh Peters DO Work Phone: [facility] Work Phone: Start: 06-04-2024 End: 06-04-2024 ambulatory Linh Malys Facility:[facility] Start: 05-08-2024 End: 05-08-2024 ambulatory Linh Malys Facility:[facility] Start: 12-26-2023 End: 12-26-2023 ambulatory Linh Malys Facility:[facility] Start: 12-04-2023 End: 12-04-2023 ambulatory Linh Malys Facility:[facility] Start: 10-25-2023 End: 10-25-2023 ambulatory [facility] Work Phone: Start: 10-25-2023 End: 10-25-2023 Patient encounter procedure [facility] Work Phone: Start: 11-14-2022 End: 11-14-2022 ambulatory [facility] Work Phone: Start: 11-14-2022 End: 11-14-2022 Patient encounter procedure [facility]-Outpatient [facility] Start: 11-06-2022 End: 11-06-2022 ambulatory [facility] Work Phone: Start: 11-06-2022 End: 11-06-2022 Patient encounter procedure [facility]-Laboratory Start: 07-09-2022 End: 07-09-[address] Linh Peters Work Phone: [facility] Start: 07-05-2022 End: 07-05-[address] Linh Peters Work Phone: [facility] Work Phone: Start: 07-05-2022 End: 07-05-[address] Linh Peters Work Phone: [facility] Start: 06-13-2022 End: 06-13-[address] Linh Peters Work Phone: [facility] Start: 06-11-2022 End: 06-11-[address] Linh Peters Work Phone: [facility] Start: 11-09-2021 End: 11-09-2021 Patient encounter procedure [facility]Outpatient [facility] Procedures Date Procedure Procedure Detail Performing Clinician Start: 11-14-2022 Screening mammography Start: 07-05-2022 MRI of joint of lowe r extremity Dr. Linh Peters Work Phone: Start: 06-11-2022 Radiologic examinati on of knee Dr. Linh Peters Work Phone: Start: 11-09-2021 Screening mammography Plan of Treatment Date Care Activity Detail Author Start: 06-11-2022 Patient referral [facility] Work Phone: Start: 11-09-2021 Dual energy X-ray absorptiometry Dexa Bone Density Study [facility] Work Phone: Patient referral [facility] Work Phone: Immunizations Immunization Date Immunization Notes Care Provider Fa carlitos 10-13-2020 Covid (Pfizer) [facility] 09-22-2020 Covid (Pfizer) [facility] 05-26-2018 influenza, injectabl e, quadrivalent, preservative free [facility] 05-26-2018 influenza, seasonal, injectable [facility] 06-19-2017 influenza, injectabl e, quadrivalent, preservative free [facility] 06-19-2017 influenza, seasonal, injectable [facility] 04-19-2016 influenza, injectabl e, quadrivalent, preservative free [facility] 04-19-2016 influenza, seasonal, injectable [facility] 06-06-2015 influenza, injectabl e, quadrivalent, preservative free [facility] 06-06-2015 influenza, seasonal, injectable [facility] 04-21-2014 influenza, injectabl e, quadrivalent, preservative free [facility] 04-21-2014 influenza, seasonal, [facility] Payers Date Payer Category Payer Self-pay [id number] 2023 Medicare [id number] 2023 [id number] 2013 [id number] [id number] Unknown [id number] Unknown [id number] [id number] Unknown [id number] [id number] Unknown [id number] [id number] Social History Date Type Detail Facility Start: 11-24-2017 End: 07-09-2022 Tobacco smoking status NDIS Unknown if ever smoked [facility] Start: 1955 Sex Assigned At Female [facility] Start: 07-09-2022 [facility] Start: 11-07-2024 Sex Female (finding) [facility] Mental Status Date Assessment Result Facility 11-06-2024 Cognitive function Voice/Name [facility] Work Phone: 10-25-2023 Cognitive function Voice/Name [facility] Work Phone: Evaluation note Note Date & Type Note Facility Evaluation note No assessment information availa ble [facility] Work Phone: Evaluation note Note Date & Type Note Facility Evaluation note Diagnosis Onset Date Contusion of left knee acute Strain of left knee acute Contusion of left knee acute Strain of left knee acute Contusion of left knee acute Sprain of left patella acute [facility] Work Phone: Reason for referral (narrative) Note Date & Type Note Facility Reason for referral (narrative) No reason for referral information available [facility] Work Phone: Chief Complaint and Reason for [...] No April 13, 2014 7:15am Power of Manager Of Data No March 7:15am Advance Directive Response Recorded Date/ Time Advance Directives No March 6:15am Living Will No April 13, 2014 6:15am Power of Manager Of Data No March 6:15am Advance Directive Response Recorded Date/ Time Living Will No April 13, 2014 7:15am Do you have a Healthcare Power of Manager Of Data? No April 13, 2014 7:15am Advance Directives [...] section and content) DATE CREATED AUTHOR 11/11/2024 [facility] FOR RECORDS PERTAINING TO PATIENTS WHO ARE [...] BE BASED ON THE PRIMARY CLINICAL RECORDS. [facility] [employer] [facility]. provides no warranty or guarantee of the accuracy or completeness of information in this document.
[2025-01-19 12:54] LABS: Hematocrit 43.6 % (37-47); Hemoglobin 14.0 g/dL (12.0-15.0); Immature Granulocytes Count 0.000 X10^3/uL (0.0-0.0); Mean Corp Hgb Conc 32.1 g/dL (32-36); Mean Corpuscular Volume 98.6 fL (81-99); Mean Platelet Vol. 11.2 fl (6.2-12.0); NRBC Flagged by Analyzer 0 % (0-5); Platelet Count 195 K/mm3 (150-450); RBC Distribution Width CV 13.4 % (11.6-14.6); RBC Distribution Width SD 48.0 fl (35.1-43.9); Red Blood Count 4.42 M/mm3 (4.2-5.4); White Blood Count 3.5 K/mm3 (4.4-11.0)
[2025-01-19 13:49] LABS: AST(SGOT) 21 U/L (<=31); Alanine Aminotransfer ALT/SGPT 24 U/L (<=34); Albumin, Serum 4.4 g/dL (3.4-4.8); Alkaline Phosphatase 62 U/L (35-104); Anion Gap 11 (5-15); BUN 15 mg/dL (4-19); BUN/Creat Ratio 19.4 RATIO (10-20); Calcium,Total 10.4 mg/dL (7.6-11.0); Carbon Dioxide 23.1 mmol/L (21.0-32.0); Chloride 106 mmol/L (98-108); Cholesterol 247 mg/dL (<=200); Globulin 2.8 g/dL (2.2-4.2); Glucose 90 mg/dL (70-99); Low Density Lipoprotein Calc. 156 mg/dL; Potassium 4.6 mmol/L (3.3-5.1); Triglycerides 154 mg/dL; Very Low Density Lipoprotein 31 mg/dL (5-40); cholesterol:hdl ratio screen 4.10
[2025-01-19 14:47] LABS: Free T3 2.7 pg/mL (2.18-3.98); Vitamin B12 227 pg/mL (180-914)
== END | disposition home or self-care (01) ==
LOC: BFHLAB 08:43
PROVIDERS: PCP Family Medicine; Visit Provider Family Medicine
DX: E03.9 Hypothyroidism, unspecified (principal); E53.8 Deficiency of other specified B group vitamins; E78.1 Pure hyperglyceridemia
CPT/HCPCS: 36415; 80053; 80061; 82607; 84439; 84443; 84481; 85025

== ENCOUNTER 2025-05-07 11:21 | Outpatient (CLI) | payer MEDICARE, OTHER, SELFPAY ==
--- OUTSIDE RECORDS SUMMARY | 2025-05-07 11:42 | XMS RPT_ITS | CCD ---
Author Organization [facility] Care Team Providers Care Principal Systems Engineer Name Role Phone Dr. Linh Peters Primary Care Provider [phone] Dr. Linh Peters Referring Provider SHAD Vilchis Attending Provider SHAD Bledsoe Attending Provider [phone] Dr. Linh Peters DO Primary Care Provider Dr. Linh Peters DO Attending Provider [phone] Dr. Linh Peters DO Referring Provider [phone] Sofía Wilson Primary Care Provider [phone] ANNA CAMPOS Attending Unavailable SOFÍA WILSON Primary Care Unavailable Malys, Linh Referring Unavailable Malys, Linh Attending Unavailable Malys, Linh Primary Care Unavailable Malys, Linh Primary Care Unavailable Malys, Linh Attending Unavailable Malys, Linh Primary Care Unavailable Malys, Linh Referring Unavailable Malys, Linh Attending Unavailable Malys, Linh Referring Unavailable Malys, Linh Attending Unavailable Malys, Linh Primary Care Unavailable Malys, Linh Referring Unavailable Malys, Linh Attending Unavailable Malys, Linh Primary Care Unavailable Medications Current Medications Medication Drug Class(es) Dates Sig (Normalized) Sig (Original) 1 ml denosumab 60 mg/ml prefilled syringe (2 sources) RANK Ligand Inhibitor denosumab (PROLIA) 60 mg/mL syringe Inject 60 mg subcutaneously once every 6 months. Active esomeprazole 40 mg delayed release oral capsule (9 sources) Proton Pump Inhibitor Start: 02-09-2009 End: 06-13-2022 esomeprazole mag trihydrate(NEXIUM 40 MG CAP) Take one(1) capsule daily. 30 0 02/09/2009 Active estradiol 0.1 mg/ml vaginal cream (2 sources) Estrogen Start: 02-08-2025 estradiol (ESTRACE) 0.01 % (0.1 mg/gram) vaginal cream Use 1 gram vaginally at bedtime for 2 weeks then 2-3 times/weeks for maintenance. 42.5 g 2 02/08/2025 Active pantoprazole 40 mg delayed release oral tablet (6 sources) Proton Pump Inhibitor Start: 06-13-2022 take 1 tablet by mouth once daily Pantoprazole 40 mg tablet,delayed release (DR/EC) Active 40 mg PO DAILY June 13, 2022 1:00am PROGESTERONE MICRONIZED TRANSDERM. (1 source) End: 02-08-2025 PROGESTERONE MICRONIZED TRANSDERM. Apply as directed. 02/08/2025 Discontinued (Course of therapy completed) Completed/Discontinued Medications Medication Drug Class(es) Dates Sig (Normalized) Sig (Original) alendronic acid 70 mg oral tablet (6 sources) Bisphosphonate Start: 06-13-2022 End: 04-26-2023 take 1 tablet by mouth every week Alendronate 70 mg tablet Discontinued 70 mg PO EVERY WEEK June 13, 2022 1:00am April 26, 2023 1:23pm meloxicam 7.5 mg oral tablet (6 sources) Nonsteroidal Anti-inflammatory Drug Start: 07-09-2022 End: 10-25-2023 take 1-2 tablets by mouth once daily Meloxicam 7.5 mg tablet Discontinued 0 PO DAILY 30 July 09, 2022 1:00am October 25, 2023 12:56pm 1-2 tablets orally daily; (start with 1 tablet (7.5mg)) traMADol hydrochloride 50 mg oral tablet (6 sources) Opioid Agonist Start: 07-09-2022 End: 10-25-2023 take 1 tablet by mouth every eight hours as needed for pain Tramadol 50 mg tablet Discontinued 50 mg PO Q8H as needed for pain July 09, 2022 1:00am October 25, 2023 12:56pm Problems Active Problems Problem Classification Problem Date Documented Da te Episodic/Chronic Abdominal pain (2 sources) Vaginal pain; Translations: [Pelvic and perineal pain] Onset: 02-08-2025 02-08-2025 Episodic Osteoporosis (1 source) Age-related osteoporosis without current pathological fracture; Translations: [Age-related osteoporosis without current pathological fracture] Onset: 11-10-2024 Chronic Sprains and strains (15 sources) Sprain of knee; Translations: [Sprain of other specified parts of left knee, initial encounter] Episodic Superficial injury; contusion (9 sources) Contusion of knee; Translations: [Contusion of left knee, initial encounter] Episodic Thyroid disorders (3 sources) Multinodular goiter; Translations: [Nontoxic multinodular goiter] Onset: 04-03-2012 04-03-2012 Chronic Past or Other Problems Problem Classification Problem Date Documented Da te Episodic/Chronic Other screening for suspected conditions (not mental disorders or infectious disease) (1 source) Encounter for screening mammogram for malignant neoplasm of breast; Translations: [Encounter for screening mammogram for malignant neoplasm of breast] Onset: 07-02-2024 Episodic Results Test Name Value Interpretation Reference Range Facility BACTERIAL VAGINOSIS NAATon 0 02-08-2025 Lactobacillus crispatus+gasseri+jenseni i + Gardnerella vaginalis + Atopobium vaginae rRNA EZRA+probe Ql (Vag fld) Not detected Normal Not detected [facility] Comment on above: Order Comment: Speci men Type: SWAB Ordering Facility: [facility] Address: [address] [place] [address] Performed By: #### C VTV, BVAMP #### [facility] CLIA [id number] [address] [place] [address] [place] OLIVIA/TRICHOMONAS NAATon 0 02-08-2025 C. glabrata RNA EZRA+probe Ql (Vag fld) Not detected Normal Not detected [facility] Comment on above: Order Comment: Speci men Type: SWAB Ordering Facility: [facility] Address: [address] [place] [address] Performed By: #### C VTV, BVAMP #### [facility] CLIA [id number] [address] [place] [address] [place] Olivia sp DNA EZRA+probe Ql (Vag fld) Not detected Normal Not detected [facility] Comment on above: Order Comment: Speci men Type: SWAB Ordering Facility: [facility] Address: [address] [place] [address] Result Comment: The Olivia species group target includes C. albicans, C. tropicalis, C. parapsilosis, and C. dubliniensis. Performed By: #### C VTV, BVAMP #### [facility] CLIA [id number] [address] [place] [address] [place] T. vaginalis DNA EZRA+probe Ql (Unsp spec) Not detected Normal Not detected [facility] Comment on above: Order Comment: Speci men Type: SWAB Ordering Facility: [facility] Address: [address] [place] [address] Performed By: #### C VTV, BVAMP #### [facility] CLIA [id number] [address] [place] [address] [place] CNOVon 02-08-2025 CNOV Office Visit (OBGYWM) ---- GARCIA FARRELL ([id number]) 1955 F Date Time Provider Department 02/08/25 7:30 AM ANNA CAMPOS OBALMASWDelfina During your visit today, we recorded the following information about you: Blood pressure Weight Height 120/62 60.5 kg 1.524 m Anna Campos APRN.CNP 02/08/2025 7:54 AM Signed Patient declined red leader. Garcia Farrell is a 69 year old female who presents for problem visit pelvic pressure for 1 week(s). Pap testing reported by patient as normal 2018. HPI: pt states that the pt week she has notice an increase in pressure and discomfort in the vaginal area. She denies any vaginal discharge/odor/itch ing, incontinence, and not sexually active due to the pain since menopause. OB History Gravida3 Para0 Term0 Preterm0 AB0 Living3 SAB0 IAB0 Ectopic0 Multiple0 Live Births0 District Administrator History LMP: 02/25/2012, Postmenopausal Age at Menarche: Age at First : Age at Menopause: District Administrator History Comments: Sexual Activity: Not Currently; Male Contraception: Tubal Ligation PAST MEDICAL HISTORY Diagnosis Date Osteoporosis Pt reported Reflux PAST SURGICAL HISTORY Procedure Laterality Date LIG/TRNSXJ FLP TUBE ABDL/VAG APPR UNI/BI 1981 FAMILY HISTORY Problem Relation Age of Onset Heart Mother Coronary Artery Disease Mother Stroke Father Hypertension Father Heart Brother Stroke Paternal Grandmother Ischemic Heart Disease Paternal Grandfather Stroke Paternal Grandfather Social History Tobacco Use Smoking status: Never Vaping Use Vaping status: Never Used Substance Use Topics Alcohol use: Yes Comment: occassionally Drug use: No Current Outpatient Medications Medication Sig denosumab (PROLIA) 60 mg/mL syringe Inject 60 mg subcutaneously once every 6 months. esomeprazole mag trihydrate(NEXIUM 40 MG CAP) Take one(1) capsule daily. estradiol (ESTRACE) 0.01 % (0.1 mg/gram) vaginal cream Use 1 gram vaginally at bedtime for 2 weeks then 2-3 times/weeks for maintenance. PROGESTERONE MICRONIZED TRANSDERM. Apply as directed. (Patient not taking: Reported on 02/08/2025) No current facility-administer ed medications for this visit. Allergies As of Date: 02/08/2025 (No Known Allergies) Fully Assessed 02/08/2025 REVIEW OF SYSTEMS Bladder: No dysuria, gross hematuria, urinary frequency, urinary urgency, or incontinence. Expanded ROS: N/A Allergies and current medication updated:Yes SENSITIVE EXAM: The sensitive examination was discussed with the Patient or Patient's Authorized Juice Standardizer. As applicable, any other physician, advance practice provider, medical student, or other health professional student that will be observing or involved in the sensitive examination for educational or training purposes was discussed with the Patient or Authorized Juice Standardizer. The Patient or Authorized Juice Standardizer has agreed to proceed with the sensitive examination. (Sensitive examination includes inspection and/or palpation of the breasts, pelvis, prostate and anorectal regions). EXAM: BP 120/62 Ht 5' 0 (1.52m) Wt 133 lb 6.4 oz (60.5kg) LMP 02/25/2012 BMI 26.05 kg/(m2). GENERAL: pleasant, female in no apparent distress HEENT: Normocephalic, atraumatic, mucus membranes moist, and no lesions CHEST: Normal inspiratory effort PELVIC: external genitalia normal, normal Bartholin's glands, urethra, [place]'s glands, no vulvar lesions, no cervical lesions, good vaginal support, physiologic discharge present, normal appearing perineal body and perianal region BIMANUAL: uterus normal size, shape and consistency, no adnexal masses, and non-tender NEURO: alert and oriented x3,exam grossly non-focal EXTREMITIES: normal ASSESSMENT AND PLAN: Assessment AND Plan Vaginal pain Orders: OLIVIA/TRICHOMONAS NAAT BACTERIAL VAGINOSIS NAAT Estrace cream ordered Will notify patient of test results. Anna Campos APRN.KAITLIN Medical Decision Making: Problems: Low: Acute, uncomplicated illness or injury Data: Unique test(s) ordered: 2 Risk: Moderate: Drug management Medical Decision Making Level: 3 - Low Allergies As of Date: 02/08/2025 (No Known Allergies) Date Reviewed: 02/08/2025 Reviewed by: Linnea Membreno LPN - Fully Assessed Reason for Visit: Problem Visit [Other] Primary Visit Diagnosis:Vaginal pain [R10.2] Order(s):OLIVIA/TR ICHOMONAS NAAT [SQCVTV] Order #: [id number]. #:[id number] BACTERIAL VAGINOSIS NAAT [SQBVAMP] Order #: [id number]. #:[id number] estradiol (ESTRACE) 0.01 % (0.1 mg/gram) vaginal creamUse 1 gram vaginally at bedtime for 2 weeks then 2-3 times/weeks for maintenance.Disp: 42.5 gRfl: 2 Prescriptions as of 02/08/2025 - denosumab (PROLIA) 60 mg/mL syringe Inject 60 mg subcutaneously once every 6 months. - estradiol (ESTRACE) 0.01 % (0.1 mg/gram) vaginal cream Use 1 g (more content not included)... Normal [facility] Absolute lymphocyte countOrd ered By: Linh Peters on 01-19-2025 Lymphocytes Auto (Unsp spec) [#/Vol] 1.50 10*3/uL 0.83-4.51 [facility] Absolute neutrophil countOrd ered By: Linh Peters on 01-19-2025 Neutrophils (Bld) [#/Vol] 1.6 10*3/uL Low 2.0-7.7 [facility] Anion gap in Serum or Plasma Ordered By: Linh Baciliowade on 01-19-2025 Anion gap [Moles/Vol] 11 mmol/L 5-15 [facility] Automated lymphocyte count a s percentage of total leukocytesOrdered By: Linh Baciliowade on 01-19-2025 Lymphocytes/100 WBC Auto (Unsp spec) 42.6 % High 19-41 [facility] BUN/creatinine ratioOrdered By: Linh Baciliowade on 01-19-2025 Urea nitrogen/Creatinine [Mass ratio] 19.4 mg/mg 10-20 [facility] Basophil percentageOrdered B y: Linh Riberawade on 01-19-2025 Basophils/100 WBC (Bld) 0.6 % 0-1 [facility] Bilirubin, totalOrdered By: Linh Baciliowade on 01-19-2025 Bilirubin [Mass/Vol] 0.30 mg/dL 0.00-1.30 [facility] CBC W/Diff, Automatedon 07-0 Absolute Lymph 1.50 X10 3/uL Normal 0.83-4.51 [facility] Comment on above: Performed By: #### L 500.4100, L506.0400, L503.0106, L100.0100, L501.9520, L500.4050, L501.17646 #### [facility] [address] [place], [address] Absolute Neut 1.6 X10 3/uL Low 2.0-7.7 [facility] Comment on above: Performed By: #### L 500.4100, L506.0400, L503.0106, L100.0100, L501.9520, L500.4050, L501.78788 #### [facility] [address] [place], [address] Basophils/100 WBC (Bld) 0.6 % Normal 0-1 [facility] Comment on above: Performed By: #### L 500.4100, L506.0400, L503.0106, L100.0100, L501.9520, L500.4050, L501.96871 #### [facility] [address] [place], [address] Eosinophils/100 WBC (Bld) 4.5 % Normal 0-5 [facility] Comment on above: Performed By: #### L 500.4100, L506.0400, L503.0106, L100.0100, L501.9520, L500.4050, L501.32362 #### [facility] [address] [place], [address] Erythrocyte distribution width (RBC) [Ratio] 13.4 % Normal 11.6-14.6 [facility] Comment on above: Performed By: #### L 500.4100, L506.0400, L503.0106, L100.0100, L501.9520, L500.4050, L501.37557 #### [facility] [address] [place], [address] Hematocrit (Bld) [Volume fraction] 43.6 % Normal 37-47 [facility] Comment on above: Performed By: #### L 500.4100, L506.0400, L503.0106, L100.0100, L501.9520, L500.4050, L501.44273 #### [facility] [address] [place], [address] Hemoglobin (Bld) [Mass/Vol] 14.0 g/dL Normal 12.0-15.0 [facility] Comment on above: Performed By: #### L 500.4100, L506.0400, L503.0106, L100.0100, L501.9520, L500.4050, L501.08965 #### [facility] [address] [place], [address] IG% 0.000 Normal 0.0-0.9 [facility] Comment on above: Result Comment: IG% - Immature Granulocytes (promyelocytes, myelocytes and metamyelocytes) > 1% indicates that a LEFT SHIFT is Present. Performed By: #### L 500.4100, L506.0400, L503.0106, L100.0100, L501.9520, L500.4050, L501.66097 #### [facility] [address] [place], [address] Lymphocytes/100 WBC (Bld) 42.6 % High 19-41 [facility] Comment on above: Performed By: #### L 500.4100, L506.0400, L503.0106, L100.0100, L501.9520, L500.4050, L501.80140 #### [facility] [address] [place], [address] MCH (RBC) [Entitic mass] 31.7 pg Normal 27.0-32.0 [facility] Comment on above: Performed By: #### L 500.4100, L506.0400, L503.0106, L100.0100, L501.9520, L500.4050, L501.54756 #### [facility] [address] [place], [address] MCHC (RBC) [Mass/Vol] 32.1 g/dL Normal 32-36 [facility] Comment on above: Performed By: #### L 500.4100, L506.0400, L503.0106, L100.0100, L501.9520, L500.4050, L501.63029 #### [facility] [address] [place], [address] MCV (RBC) [Entitic vol] 98.6 fL Normal 81-99 [facility] Comment on above: Performed By: #### L 500.4100, L506.0400, L503.0106, L100.0100, L501.9520, L500.4050, L501.52235 #### [facility] [address] [place], [address] Monocytes/100 WBC (Bld) 8.0 % Normal 0-10 [facility] Comment on above: Performed By: #### L 500.4100, L506.0400, L503.0106, L100.0100, L501.9520, L500.4050, L501.68757 #### [facility] [address] [place], [address] Neutrophils/100 WBC (Bld) 44.3 % Low 47-70 [facility] Comment on above: Performed By: #### L 500.4100, L506.0400, L503.0106, L100.0100, L501.9520, L500.4050, L501.65984 #### [facility] [address] [place], [address] Nucleated RBC (Bld) [#/Vol] 0 10*3/uL Normal 0-5 [facility] Comment on above: Performed By: #### L 500.4100, L506.0400, L503.0106, L100.0100, L501.9520, L500.4050, L501.42202 #### [facility] [address] [place], [address] Platelet mean volume (Bld) [Entitic vol] 11.2 fL Normal 6.2-12.0 [facility] Comment on above: Performed By: #### L 500.4100, L506.0400, L503.0106, L100.0100, L501.9520, L500.4050, L501.53253 #### [facility] [address] [place], [address] Platelets (Bld) [#/Vol] 195 10*3/uL Normal 150-450 [facility] Comment on above: Performed By: #### L 500.4100, L506.0400, L503.0106, L100.0100, L501.9520, L500.4050, L501.74393 #### [facility] [address] [place], [address] (452) RBC (Bld) [#/Vol] 4.42 10*6/uL Normal 4.2-5.4 [facility] Comment on above: Performed By: #### L 500.4100, L506.0400, L503.0106, L100.0100, L501.9520, L500.4050, L501.81994 #### [facility] [address] [place], [address] (013) RDW SD 48.0 fl High 35.1-43.9 [facility] Comment on above: Performed By: #### L 500.4100, L506.0400, L503.0106, L100.0100, L501.9520, L500.4050, L501.56063 #### [facility] [address] [place], [place], [id number] (246) WBC (Bld) [#/Vol] 3.5 10*3/uL Low 4.4-11.0 [facility] Comment on above: Performed By: #### L 500.4100, L506.0400, L503.0106, L100.0100, L501.9520, L500.4050, L501.05059 #### [facility] [address] [place], [address] Calculated very low density lipoprotein (VLDL) cholesterol measurementOrdered By: Linh Peters on 01-19-2025 Calculated very low density lipoprotein (VLDL) cholesterol measurement 31 mg/dL 5-40 [facility] Carbon dioxide, total [Moles /volume] in Central venous bloodOrdered By: Linh Peters on 01-19-2025 CO2 [Moles/Vol] 23.1 mmol/L 21.0-32.0 [facility] Chloride assayOrdered By: Kaylin Peters on 01-19-2025 Chloride [Moles/Vol] 106 mmol/L 98-108 [facility] Comprehensive Metabolic Prof ilon 01-19-2025 Albumin [Mass/Vol] 4.4 g/dL Normal 3.4-4.8 [facility] Comment on above: Performed By: #### L 500.4100, L506.0400, L503.0106, L100.0100, L501.9520, L500.4050, L501.66436 #### [facility] [address] [place], [address] Albumin/Globulin [Mass ratio] 1.6 {ratio} Normal 0.9-2.4 [facility] Comment on above: Performed By: #### L 500.4100, L506.0400, L503.0106, L100.0100, L501.9520, L500.4050, L501.42403 #### [facility] [address] [place], [address] ALK PHOS 62 U/L Normal 35-104 [facility] Comment on above: Performed By: #### L 500.4100, L506.0400, L503.0106, L100.0100, L501.9520, L500.4050, L501.97547 #### [facility] [address] [place], [address] ALT [Catalytic activity/Vol] 24 U/L Normal <=34 [facility] Comment on above: Performed By: #### L 500.4100, L506.0400, L503.0106, L100.0100, L501.9520, L500.4050, L501.22688 #### [facility] [address] [place], [address] AST [Catalytic activity/Vol] 21 U/L Normal <=31 [facility] Comment on above: Performed By: #### L 500.4100, L506.0400, L503.0106, L100.0100, L501.9520, L500.4050, L501.63708 #### [facility] [address] [place], [address] Bilirubin [Mass/Vol] 0.30 mg/dL Normal 0.00-1.30 [facility] Comment on above: Performed By: #### L 500.4100, L506.0400, L503.0106, L100.0100, L501.9520, L500.4050, L501.02784 #### [facility] [address] [place], [address] BUN/CRE 19.4 RATIO Normal 10-20 [facility] Comment on above: Performed By: #### L 500.4100, L506.0400, L503.0106, L100.0100, L501.9520, L500.4050, L501.26320 #### [facility] [address] [place], [address] Calcium [Mass/Vol] 10.4 mg/dL Normal 7.6-11.0 [facility] Comment on above: Performed By: #### L 500.4100, L506.0400, L503.0106, L100.0100, L501.9520, L500.4050, L501.79330 #### [facility] [address] [place], [address] Chloride [Moles/Vol] 106 mmol/L Normal 98-108 [facility] Comment on above: Performed By: #### L 500.4100, L506.0400, L503.0106, L100.0100, L501.9520, L500.4050, L501.05660 #### [facility] [address] [place], [address] CO2 [Moles/Vol] 23.1 mmol/L Normal 21.0-32.0 [facility] Comment on above: Performed By: #### L 500.4100, L506.0400, L503.0106, L100.0100, L501.9520, L500.4050, L501.60594 #### [facility] [address] [place], [address] Creatinine [Mass/Vol] 0.79 mg/dL Normal 0.70-1.20 [facility] Comment on above: Performed By: #### L 500.4100, L506.0400, L503.0106, L100.0100, L501.9520, L500.4050, L501.76733 #### [facility] [address] [place], [address] GAP 11 Normal 5-15 [facility] Comment on above: Performed By: #### L 500.4100, L506.0400, L503.0106, L100.0100, L501.9520, L500.4050, L501.76937 #### [facility] [address] [place], [address] GFR/1.73 sq M.predicted among non-blacks MDRD (S/P/Bld) [Vol rate/Area] 82 mL/min/{1.73_m2} Normal >60 [facility] Comment on above: Result Comment: mL/m in/1.73m2 CKD-EPI Creatinine Equation (2020) Performed By: #### L 500.4100, L506.0400, L503.0106, L100.0100, L501.9520, L500.4050, L501.99875 #### [facility] [address] [place], [address] Globulin (S) [Mass/Vol] 2.8 g/dL Normal 2.2-4.2 [facility] Comment on above: Performed By: #### L 500.4100, L506.0400, L503.0106, L100.0100, L501.9520, L500.4050, L501.02267 #### [facility] [address] [place], [address] Glucose [Mass/Vol] 90 mg/dL Normal 70-99 [facility] Comment on above: Performed By: #### L 500.4100, L506.0400, L503.0106, L100.0100, L501.9520, L500.4050, L501.67252 #### [facility] [address] [place], [address] Potassium [Moles/Vol] 4.6 mmol/L Normal 3.3-5.1 [facility] Comment on above: Performed By: #### L 500.4100, L506.0400, L503.0106, L100.0100, L501.9520, L500.4050, L501.31826 #### [facility] [address] [place], [address] Sodium [Moles/Vol] 139 mmol/L Normal 133-145 [facility] Comment on above: Performed By: #### L 500.4100, L506.0400, L503.0106, L100.0100, L501.9520, L500.4050, L501.37947 #### [facility] [address] [place], [address] T PROT 7.2 g/dL Normal 5.9-8.4 [facility] Comment on above: Performed By: #### L 500.4100, L506.0400, L503.0106, L100.0100, L501.9520, L500.4050, L501.02604 #### [facility] [address] [place], [address] Urea nitrogen [Mass/Vol] 15 mg/dL Normal 4-19 [facility] Comment on above: Performed By: #### L 500.4100, L506.0400, L503.0106, L100.0100, L501.9520, L500.4050, L501.57380 #### [facility] [address] [place], [address] Eosinophil percentageOrdered By: Linh Peters on 01-19-2025 Eosinophils/100 WBC (Bld) 4.5 % 0-5 [facility] Erythrocyte distribution wid th ratioOrdered By: Linh Peters on 01-19-2025 Erythrocyte distribution width (RBC) [Ratio] 13.4 % 11.6-14.6 [facility] Erythrocyte distribution wid th standard deviationOrdered By: Linh Peters on 01-19-2025 Erythrocyte distribution width (RBC) [Ratio] 48.0 fl High 35.1-43.9 [facility] Free T3on 01-19-2025 Free T3 [Mass/Vol] 2.7 pg/mL Normal 2.18-3.98 [facility] Comment on above: Performed By: #### L 500.4100, L506.0400, L503.0106, L100.0100, L501.9520, L500.4050, L501.58189 #### [facility] [address] [place], [address] Free [id number] By: Linh allen on 01-19-2025 Free T3 [Mass/Vol] 2.7 pg/mL 2.18-3.98 [facility] Glomerular filtration rate ( GFR) estimation/1.73 sq m using serum, plasma, or whole bOrdered By: Linh Peters on 01-19-2025 GFR/1.73 sq M.predicted among non-blacks MDRD (S/P/Bld) [Vol rate/Area] 82 mL/min/{1.73_m2} >60 [facility] Comment on above: mL/min/1.73m2 CKD-EP I Creatinine Equation (2020) Hematocrit Auto (Bld) [Volum e fraction]Ordered By: Linh Peters on 01-19-2025 Hematocrit (Bld) [Volume fraction] 43.6 % 37-47 [facility] Hemoglobin measurementOrdere d By: Linh Peters on 01-19-2025 Hemoglobin (Bld) [Mass/Vol] 14.0 g/dL 12.0-15.0 [facility] Immature granulocytes/100 WB C Auto (Bld)Ordered By: Linh Peters on 01-19-2025 Immature granulocytes/100 WBC (Bld) 0.000 % 0.0-0.9 [facility] Comment on above: IG% - Immature Granu locytes (promyelocytes, myelocytes and metamyelocytes) > 1% indicates that a LEFT SHIFT is Present. LDL calc ser/plasOrdered By: Linh Peters on 01-19-2025 Cholesterol in LDL [Mass/Vol] 156 mg/dL [facility] Comment on above: Hpcpgidbrz=586-321 m g/dL & Higher Yogl=050 mg/dL or greater Laboratory - Chemistry and C hemistry - challengeOrdered By: Linh Peters on 01-19-2025 AST [Catalytic activity/Vol] 21 U/L <32 [facility] Lipid Profileon 01-19-2025 CHOL:HDL 4.10 Normal [facility] Comment on above: Performed By: #### L 500.4100, L506.0400, L503.0106, L100.0100, L501.9520, L500.4050, L501.81125 #### [facility] [address] [place], [address] Cholesterol [Mass/Vol] 247 mg/dL High <=200 [facility] Comment on above: Result Comment: Chol esterol level, Desirable <200 mg/dL Borderline high cholesterol 200-239 mg/dL High cholesterol >=240 mg/dL Recommendations of the NCEP Adult Treatment Panel for the following risk-cutoff thresholds for the [place] population. Performed By: #### L 500.4100, L506.0400, L503.0106, L100.0100, L501.9520, L500.4050, L501.39764 #### [facility] [address] [place], [address] Cholesterol in HDL [Mass/Vol] 60 mg/dL Normal [facility] Comment on above: Result Comment: Sandi onal Cholesterol Education Program (NCEP) guidelines: <40 mg/dL: Low HDL-cholesterol (major risk factor for CHD) >= 60 mg/dL: High HDL-cholesterol (negative risk factor for CHD) HDL-cholesterol is affected by a number of factors, e.g. smoking, exercise, hormones, sex and age. Performed By: #### L 500.4100, L506.0400, L503.0106, L100.0100, L501.9520, L500.4050, L501.32354 #### [facility] [address] [place], [address] Cholesterol in LDL [Mass/Vol] 156 mg/dL Normal [facility] Comment on above: Result Comment: Bord xkdmkl=075-104 mg/dL Higher Sqzr=804 mg/dL or greater Performed By: #### L 500.4100, L506.0400, L503.0106, L100.0100, L501.9520, L500.4050, L501.40467 #### [facility] [address] [place], [address] Cholesterol in VLDL [Mass/Vol] 31 mg/dL Normal 5-40 [facility] Comment on above: Performed By: #### L 500.4100, L506.0400, L503.0106, L100.0100, L501.9520, L500.4050, L501.64745 #### [facility] [address] [place], [address] Triglyceride [Mass/Vol] 154 mg/dL Normal [facility] Comment on above: Result Comment: The drugs N-Acetylcysteine and Metamizole may falsely depress this assay. Normal range: <150 mg/dL Borderline High: 150-199 mg/dL High: 200-499 mg/dL Very High: >500 mg/dL Performed By: #### L 500.4100, L506.0400, L503.0106, L100.0100, L501.9520, L500.4050, L501.15822 #### [facility] [address] [place], [place], [id number] MCV (mean corpuscular volume ) determinationOrdered By: Linh Peters on 01-19-2025 MCV (RBC) [Entitic vol] 98.6 fL 81-99 [facility] Mean corpuscular hemoglobin (MCH) determinationOrdered By: Linh Peters on 01-19-2025 MCH (RBC) [Entitic mass] 31.7 pg 27.0-32.0 [facility] Mean corpuscular hemoglobin concentration (MCHC) determinationOrdered By: Linh Peters on 01-19-2025 MCHC (RBC) [Mass/Vol] 32.1 g/dL 32-36 [facility] Mean platelet volume determi nationOrdered By: Linh Peters on 01-19-2025 Platelet mean volume (Bld) [Entitic vol] 11.2 fL 6.2-12.0 [facility] Monocyte percentageOrdered B y: Linh Peters on 01-19-2025 Monocytes/100 WBC (Bld) 8.0 % 0-10 [facility] Neutrophil percentageOrdered By: Linh Peters on 01-19-2025 Neutrophils/100 WBC (Bld) 44.3 % Low 47-70 [facility] Nucleated red blood cell per centageOrdered By: Linh Peters on 01-19-2025 Nucleated RBC/100 WBC (Bld) [Ratio] 0 % 0-5 [facility] Platelet countOrdered By: Kaylin Peters on 01-19-2025 Platelets (Bld) [#/Vol] 195 10*3/uL 150-450 [facility] Potassium measurement (mass/ volume)Ordered By: Linh Peters on 01-19-2025 Potassium (Unsp spec) [Mass/Vol] 4.6 mmol/L 3.3-5.1 [facility] RBC Auto (Bld) [#/Vol]Ordere d By: Linh Peters on 01-19-2025 RBC (Bld) [#/Vol] 4.42 10*6/uL 4.2-5.4 [facility] Screening total cholesterol/ high density lipoprotein (HDL) cholesterol ratioOrdered By: Linh Peters on 01-19-2025 Cholesterol.total/Cholest elba in HDL [Mass ratio] 4.10 {ratio} [facility] Serum creatinine measurement (mass/volume)Ordered By: Linh Peters on 01-19-2025 Creatinine [Mass/Vol] 0.79 mg/dL 0.70-1.20 [facility] Serum globulin measurementOr dered By: Linh Peters on 01-19-2025 Globulin (S) [Mass/Vol] 2.8 g/dL 2.2-4.2 [facility] Serum glucose measurement (m ass/volume)Ordered By: Linh Peters on 01-19-2025 Glucose [Mass/Vol] 90 mg/dL 70-99 [facility] Serum or plasma alanine pereira otransferase (ALT) measurementOrdered By: Linh Peters on 01-19-2025 ALT [Catalytic activity/Vol] 24 U/L <35 [facility] Serum or plasma albumin jesus urement (mass/volume)Ordered By: Linh Peters on 01-19-2025 Albumin [Mass/Vol] 4.4 g/dL 3.4-4.8 [facility] Serum or plasma albumin/glob ulin mass ratioOrdered By: Linh Peters on 01-19-2025 Albumin/Globulin [Mass ratio] 1.6 {ratio} 0.9-2.4 [facility] Serum or plasma alkaline aliza sphatase measurementOrdered By: Linh Peters on 01-19-2025 ALP [Catalytic activity/Vol] 62 U/L 35-104 [facility] Serum or plasma calcium jesus urement (mass/volume)Ordered By: Linh Peters on 01-19-2025 Calcium [Mass/Vol] 10.4 mg/dL 7.6-11.0 [facility] Serum or plasma cholesterol in HDL measurement (mass/volume)Ordered By: Linh Peters on 01-19-2025 Cholesterol in HDL [Mass/Vol] 60 mg/dL >40 [facility] Comment on above: National Cholesterol Education Program (NCEP) guidelines:<40 mg/dL: Low HDL-cholesterol (major risk factor for CHD)>= 60 mg/dL: High HDL-cholesterol (negative risk factor for CHD)HDL-cholesterol is affected by a number of factors, e.g. smoking, exercise, hormones, sex and age. Serum or plasma cholesterol measurement (mass/volume)Ordered By: Linh Peters on 01-19-2025 Cholesterol [Mass/Vol] 247 mg/dL High <201 [facility] Comment on above: Cholesterol level, D esirable <200 mg/dLBorderline high cholesterol 200-239 mg/dLHigh cholesterol >=240 mg/dLRecommendations of the NCEP Adult Treatment Panel for the following risk-cutoff thresholds for the [place] population. Serum or plasma urea nitroge n measurement (mass/volume)Ordered By: Linh Peters on 01-19-2025 Urea nitrogen [Mass/Vol] 15 mg/dL 4-19 [facility] Sodium levelOrdered By: Linh Peters on 01-19-2025 Sodium [Moles/Vol] 139 mmol/L 133-145 [facility] T4 Free Directon 01-19-2025 T4 FREE DIRECT 1.30 ng/dL Normal 0.76-1.46 [facility] Comment on above: Performed By: #### L 500.4100, L506.0400, L503.0106, L100.0100, L501.9520, L500.4050, L501.08689 #### [facility] [address] [place], [place], [id number] T4 freeOrdered By: Linh Zuniga s on 01-19-2025 Free T4 [Mass/Vol] 1.30 ng/dL 0.76-1.46 [facility] TSH DL <= 0.005 mIU/L QnOrde red By: Linh Peters on 01-19-2025 TSH Qn 2.140 uIU/mL 0.300-4.200 [facility] Thyroid Stim Hormone (TSH)on 01-19-2025 TSH 2.140 uIU/mL Normal 0.300-4.200 [facility] Comment on above: Performed By: #### L 500.4100, L506.0400, L503.0106, L100.0100, L501.9520, L500.4050, L501.46482 #### [facility] [address] [place], [place], [id number] Total proteinOrdered By: Donna Peters on 01-19-2025 Protein [Mass/Vol] 7.2 g/dL 5.9-8.4 [facility] Triglycerides measurementOrd ered By: Linh Peters on 01-19-2025 Triglyceride [Mass/Vol] 154 mg/dL <199 [facility] Comment on above: The drugs N-Acetylcy steine and Metamizole may falsely depress this assay. Normal range: <150 mg/dLBorderline High: 150-199 mg/dLHigh: 200-499 mg/dLVery High: >500 mg/dL Vitamin B12on 01-19-2025 Cobalamin (Vitamin B12) [Mass/Vol] 227 pg/mL Normal 180-914 [facility] Comment on above: Performed By: #### L 500.4100, L506.0400, L503.0106, L100.0100, L501.9520, L500.4050, L501.09772 #### [facility] [address] [place], [place], [id number] Vitamin B12 ser/plasOrdered By: Linh Peters on 01-19-2025 Cobalamin (Vitamin B12) [Mass/Vol] 227 pg/mL 180-914 [facility] White blood cell (WBC) count Ordered By: Linh Peters on 01-19-2025 WBC (Bld) [#/Vol] 3.5 10*3/uL Low 4.4-11.0 [facility] Dexa Bone Density Studyon Dexa Bone Density Study [facility] Imaging [address] [address] Dexa Bone Density Study MR#: [id number] Acct: [id number] Name: GARCIA FARRELL Rep #: [id number] : 1955 F 68 From: Bean lopez MD PCP: Dr. Linh Peters DO Status: [facility] Study: Dexa Bone Density Study Date of Exam: 06/04/24 Exam# [id number] Ordering Dr: Linh Peters DO -[id number] STUDY: DUAL ENERGY X-RAY ABSORPTIOMETRY / [...] Signed: Bean Carter MD at 15:25 EST Reading Location ID and State: [address] [place] [address] , Service support , CC: Dr. Linh Peters, Pricing Specialist: Signed Normal [facility] SCRN MAMM (CAD)W/REUBENMarianne Thakkar n 06-04-2024 SCRN MAMM (CAD)W/REUBEN JUAN C [facility] Imaging Services [address] [place] [address] SCRN MAMM (CAD)W/REUBENMarianne IRIZARRY MR#: [id number] Acct: [id number] Name: GARCIA FARRELL Rep #: [id number] : 1955 F 68 From: Bean lopez MD PCP: Dr. Linh Peters DO Status: [facility] Study: SCRN MAMM (CAD)W/REUBEN BILAT Date of Exam: 05/22 11/12 Exam# [id number] Ordering Dr: Linh Peters DO -[id number] MAMMOGRAPHY - BILATERAL SCREENING REASON FOR [...] delay biopsy of a clinically suspicious abnormality. [id number] Electronically Signed: Bean Carter MD at 15:48 EST , CC: Dr. Linh Peters DO Pricing Specialist: Signed Normal [facility] Absolute lymphocyte countOrd ered By: Dr. Peters on 11-06-2022 Lymphocytes Auto (Unsp spec) [#/Vol] 1.26 10*3/uL 0.83-4.51 [facility] Basophil percentageOrdered B y: Dr. Peters on 11-06-2022 Basophils/100 WBC (Bld) 0.6 % 0-1 [facility] Bilirubin [Mass/Vol] 0.40 mg/dL 0.20-1.00 [facility] Comment on above: For patients on eltr ombopag therapy, use of Dimension [place] TBIL is not recommended. Chloride [Moles/Vol] 110 mmol/L 98-107 [facility] Cholesterol [Mass/Vol] 262 mg/dL <200 [facility] Comment on above: <200 mg/dL Desirable 200-240 mg/dL Borderline >240 mg/dL High Risk Eosinophils/100 WBC (Bld) 3.5 % 0-5 [facility] Glucose [Mass/Vol] 106 mg/dL 74-106 [facility] Comment on above: Fasting Glucose resu lt from 100 to 125 mg/dL suggests IMPAIRED HOMEOSTASIS per A.D.A. criteria. Neutrophils (Bld) [#/Vol] 1.5 10*3/uL 2.0-7.7 [facility] Neutrophils/100 WBC (Bld) 46.4 % 47-70 [facility] Potassium [Moles/Vol] 4.5 mmol/L 3.5-5.1 [facility] Protein [Mass/Vol] 7.3 g/dL 6.4-8.2 [facility] Sodium [Moles/Vol] 138 mmol/L 136-145 [facility] Triglyceride [Mass/Vol] 172 mg/dL <199 [facility] Comment on above: The drugs N-Acetylcy steine and Metamizole may falsely depress this assay.Serum Triglycerides Reference Interval Normal <150 mg/dL Borderline high 150 - 199 mg/dL High 200 - 499 mg/dL Very High > or = 500 mg/dL WBC (Bld) [#/Vol] 3.2 10*3/uL 4.4-11.0 [facility] Blood erythrocytes count (nu mber/volume)Ordered By: Dr. Peters on 11-06-2022 RBC (Bld) [#/Vol] 4.39 10*6/uL 4.2-5.4 [facility] Blood hemoglobin measurement (mass/volume)Ordered By: Dr. Peters on 11-06-2022 Hemoglobin (Bld) [Mass/Vol] 13.9 g/dL 12.0-15.0 [facility] Blood lymphocytes/100 leukoc ytesOrdered By: Dr. Peters on 11-06-2022 Lymphocytes/100 WBC (Bld) 39.7 % 19-41 [facility] Blood monocytes/100 leukocyt esOrdered By: Dr. Peters on 11-06-2022 Monocytes/100 WBC (Bld) 9.5 % 0-10 [facility] Blood platelet mean volumeOr dered By: Dr. Peters on 11-06-2022 Platelet mean volume (Bld) [Entitic vol] 10.8 fL 6.2-12.0 [facility] Determination of erythrocyte mean corpuscular volume (MCV)Ordered By: Dr. Peters on 11-06-2022 MCV (RBC) [Entitic vol] 100.2 fL 81-99 [facility] Hematocrit Auto (Bld) [Volum e fraction]Ordered By: Dr. Peters on 11-06-2022 Hematocrit (Bld) [Volume fraction] 44.0 % 37-47 [facility] Laboratory - Chemistry and C hemistry - challengeOrdered By: Dr. Peters on 11-06-2022 ALP [Catalytic activity/Vol] 66 U/L 45-117 [facility] ALT [Catalytic activity/Vol] 24 U/L 13-56 [facility] CO2 [Moles/Vol] 30.0 mmol/L 21.0-32.0 [facility] Globulin (S) [Mass/Vol] 3.4 g/dL 2.2-4.2 [facility] Urea nitrogen/Creatinine [Mass ratio] 26.1 mg/mg 10-20 [facility] - Hematology and Cell countsOrdered By: Dr. Peters on 11-06-2022 Erythrocyte distribution width (RBC) [Entitic vol] 49.1 fL 35.1-43.9 [facility] Erythrocyte distribution width (RBC) [Ratio] 13.2 % 11.6-14.6 [facility] Immature granulocytes/100 WBC (Bld) 0.300 % 0.0-0.9 [facility] Comment on above: IG% - Immature Granu locytes (promyelocytes, myelocytes and metamyelocytes) > 1% indicates that a LEFT SHIFT is Present. MCH (RBC) [Entitic mass] 31.7 pg 27.0-32.0 [facility] Nucleated RBC/100 WBC (Bld) [Ratio] 0 % 0-5 [facility] MCHC Auto (RBC) [Mass/Vol]Or dered By: Dr. Peters on 11-06-2022 MCHC (RBC) [Mass/Vol] 31.6 g/dL 32-36 [facility] No Panel InformationOrdered By: Dr. Peters on 11-06-2022 Estimated GFR (MDRD) Amer 92 mL/min >60 [facility] Comment on above: GFR Calc Estimated GFR (MDRD) Non-Af Amer 76 mL/min >60 [facility] Comment on above: Non- GFR Calc Platelets bldOrdered By: Dr. Peters on 11-06-2022 Platelets (Bld) [#/Vol] 207 10*3/uL 150-450 [facility] Serum or plasma albumin jesus urement (mass/volume)Ordered By: Dr. Peters on 11-06-2022 Albumin [Mass/Vol] 3.9 g/dL 3.2-5.0 [facility] Serum or plasma albumin/glob ulin mass ratioOrdered By: Dr. Peters on 11-06-2022 Albumin/Globulin [Mass ratio] 1.1 {ratio} 0.9-2.4 [facility] Serum or plasma calcium jesus urement (mass/volume)Ordered By: Dr. Peters on 11-06-2022 Calcium [Mass/Vol] 10.0 mg/dL 8.5-10.1 [facility] Serum or plasma cholesterol in HDL measurement (mass/volume)Ordered By: Dr. Peters on 11-06-2022 Cholesterol in HDL [Mass/Vol] 66 mg/dL >40 [facility] Comment on above: The drugs N-Acetylcy steine and Metamizole may falsely depress this assay. Reference Range HDL <40 mg/dL Low HDL Cholesterol HDL >or= 60 mg/dL High HDL Cholesterol Serum or plasma cholesterol in VLDL measurement (mass/volume)Ordered By: Dr. Peters on 11-06-2022 Cholesterol in VLDL [Mass/Vol] 34 mg/dL 5-40 [facility] Serum or plasma creatinine m easurement (mass/volume)Ordered By: Dr. Peters on 11-06-2022 Creatinine [Mass/Vol] 0.81 mg/dL 0.55-1.02 [facility] Comment on above: The validity of the calculated GFR & GFRAA in patients over 70 years has not been determined. Clinical correlation is essential. Serum or plasma low density lipoprotein (LDL) cholesterol measurement (mass/volume)Ordered By: Dr. Peters on 11-06-2022 Cholesterol in LDL [Mass/Vol] 162 mg/dL 0-130 [facility] Serum or plasma urea nitroge n measurement (mass/volume)Ordered By: Dr. Peters on 11-06-2022 Urea nitrogen [Mass/Vol] 21 mg/dL 7-18 [facility] Thin prep Papanicolaou smear with manual screeningOrdered By: Dr. Peters on 11-06-2022 Thin prep Papanicolaou smear with manual screening 11 U/L 15-37 [facility] Thin prep Papanicolaou smear with manual screening -2 5-15 [facility] Vital Signs Date Time Vital Sign Value Performing Clinician Charlie cox 02-08-2025 07:23-0400 Body height 152.4 cm Anna Campos APRN.KAITLIN Work Phone: [facility] 02-08-2025 07:23-0400 Body mass index (BMI) [Ratio] 26.05 kg/m2 Anna Campos APRNCRISTIAN Work Phone: [facility] 02-08-2025 07:23-0400 Body weight 60.51 kg Anna Campos APRNCRISTIAN Work Phone: [facility] 02-08-2025 07:23-0400 Diastolic blood pressure 62 mm[Hg] Anna Andres FORK LIFT TECHNICIAN.SUPERVISOR [employer] Work Phone: [facility] 02-08-2025 07:23-0400 Systolic blood pressure 120 mm[Hg] Anna Campos FORK LIFT TECHNICIAN.SUPERVISOR [employer] Work Phone: [facility] 11-06-2024 12:30-0400 Body height 152.[address] Linh Peters DO Work Phone: [facility] 11-06-2024 12:30-0400 Body mass index (BMI) [Ratio] 25.7 kg/m2 Dr. Linh Peters DO Work Phone: [facility] 11-06-2024 12:30-0400 Body temperature 97.5 [degF] Dr. Linh Peters DO Work Phone: [facility] 11-06-2024 12:30-0400 Body weight 59.[address] Linh Peters DO Work Phone: [facility] 11-06-2024 12:30-0400 Diastolic blood pressure 57 mm[Hg] Dr. Linh Peters DO Work Phone: [facility] 11-06-2024 12:30-0400 Heart rate 70 /min Dr. Linh Peters DO Work Phone: [facility] 11-06-2024 12:30-0400 Respiratory rate 16 /min Dr. Linh Peters DO Work Phone: [facility] 11-06-2024 12:30-0400 SaO2% (BldA) [Mass fraction] 99 % Dr. Linh Peters DO Work Phone: [facility] 11-06-2024 12:30-0400 Systolic blood pressure 121 mm[Hg] Dr. Linh Peters DO Work Phone: [facility] 10-25-2023 12:57-0400 Body height 152.4 cm [facility] 10-25-2023 12:57-0400 Body mass index (BMI) [Ratio] 25.7 kg/m2 [facility] 10-25-2023 12:57-0400 Body temperature 96 [degF] [facility] 10-25-2023 12:57-0400 Body weight 59.87 kg [facility] 10-25-2023 12:57-0400 Diastolic blood pressure 62 mm[Hg] [facility] 10-25-2023 12:57-0400 Heart rate 66 /min [facility] 10-25-2023 12:57-0400 Respiratory rate 16 /min [facility] 10-25-2023 12:57-0400 SaO2% (BldA) [Mass fraction] 96 % [facility] 10-25-2023 12:57-0400 Systolic blood pressure 130 mm[Hg] [facility] 06-11-2022 11:16-0500 Body height 152.[address] Linh Peters Work Phone: [facility] Work Phone: 06-11-2022 11:16-0500 Body mass index (BMI) [Ratio] 25 kg/m2 Dr. Linh Peters Work Phone: [facility] Work Phone: 06-11-2022 11:16-0500 Body temperature 98.1 [degF] Dr. Linh Peters Work Phone: [facility] Work Phone: 06-11-2022 11:16-0500 Body weight 58.[address] Linh Peters Work Phone: [facility] Work Phone: 06-11-2022 11:16-0500 Diastolic blood pressure 82 mm[Hg] Dr. Linh Peters Work Phone: [facility] Work Phone: 06-11-2022 11:16-0500 Heart rate 80 /min Dr. Linh Peters Work Phone: [facility] Work Phone: 06-11-2022 11:16-0500 Respiratory rate 14 /min Dr. Linh Peters Work Phone: [facility] Work Phone: 06-11-2022 11:16-0500 SaO2% (BldA) [Mass fraction] 97 % Dr. Linh Peters Work Phone: [facility] Work Phone: 06-11-2022 11:16-0500 Systolic blood pressure 126 mm[Hg] Dr. Linh Peters Work Phone: [facility] Work Phone: 11-09-2021 13:26-0400 Body height 152.4 cm [facility] Work Phone: Encounters Encounter Date Encounter Type Care Provider Facility Start: [facility]07[facility] Start: 02-09-2025 End: 02-09-2025 Follow-up encounter Anna Campos APRN.CNP Work Phone: OB/Gynecology Comment on above: Results Start: 02-08-2025 End: 02-08-2025 Patient encounter procedure Anna Campos APRN.SUPER[employer]OR [employer] Work Phone: OB/Gynecology Comment on above: Vaginal pain (Primar y Dx) Start: 02-08-2025 End: 02-08-2025 ambulatory ANNA CAMPOS Facility:[facility] Start: 01-19-2025 End: 01-19-[address] Linh Peters DO Work Phone: -Laboratory [facility] Start: 01-19-2025 End: 01-19-[address] Linh Peters DO -Laboratory [facility] Start: 01-19-2025 End: 01-19-2025 ambulatory Linh Peters Facility:[facility] Start: 11-06-2024 End: 11-06-[address] Linh Peters DO -Medical Out Work Phone: Start: 11-06-2024 End: 11-06-[address] Linh Peters DO Work Phone: [facility] Work Phone: Start: 06-04-2024 End: 06-04-2024 ambulatory Linh Peters Facility:[facility] Start: 05-08-2024 End: 05-08-2024 [facility] Start: 10-25-2023 End: 10-25-2023 ambulatory [facility] Work Phone: Start: 10-25-2023 End: 10-25-2023 Patient encounter procedure [facility]-Medical Out Work Phone: Start: 11-14-2022 End: 11-14-2022 ambulatory [facility] Work Phone: Start: 11-14-2022 End: 11-14-2022 Patient encounter procedure [facility]-Outpatient Breast Imaging Start: 11-06-2022 End: 11-06-2022 ambulatory [facility] Work Phone: Start: 11-06-2022 End: 11-06-2022 Patient encounter procedure [facility]-Laboratory Start: 07-09-2022 End: 07-09-[address] Linh Peters Work Phone: [facility] Start: 07-05-2022 End: 07-05-[address] Linh Peters Work Phone: [facility] Work Phone: Start: 07-05-2022 End: 07-05-2022 Patient encounter procedure Dr. Linh Peters Work Phone: [facility] Start: 06-13-2022 End: 06-13-[address] Linh Peters Work Phone: [facility] Start: 06-11-2022 End: 06-11-[address] Linh Peters Work Phone: [facility] Start: 11-09-2021 End: 11-09-2021 Patient encounter procedure [facility] Procedures Date Procedure Procedure Detail Performing Clinician Start: 11-14-2022 Screening mammography Start: 07-05-2022 MRI of joint of lowe r extremity Dr. Linh Peters Work Phone: Start: 06-11-2022 Radiologic examinati on of knee Dr. Linh Peters Work Phone: Start: 11-09-2021 Screening mammography Plan of Treatment Date Care Activity Detail Author Start: 09-30-2031 RSV Vaccine (1 - 1-d ose 75+ series) RSV Vaccine (1 - 1-dose 75+ series) [facility] Start: 03-22-2025 Influenza vaccination Influenza Vacc ine (#1) [facility] Start: 07-22-2024 Advance Directive Discussion Advance Directive Discussion [facility] Start: 03-22-2024 Covid-19 Vaccine ( season) Covid-19 Vaccine ( season) [facility] Start: 06-11-2022 Patient referral [facility] Work Phone: Start: 11-09-2021 Dual energy X-ray absorptiometry Dexa Bone Density Study [facility] Work Phone: Start: 2021 Screening for osteoporosis Bone Density Screening [facility] Start: 09-19-2021 Medicare Annual Well ness Visit Medicare Annual Wellness Visit [facility] Start: 2006 Pneumococcal Vaccine : 50+ (1 of 1 - PCV) Pneumococcal Vaccine: 50+ (1 of 1 - PCV) [facility] Start: 2006 Shingrix Vaccine (1 of 2) Landry grix Vaccine (1 of 2) [facility] Start: 2001 Diabetes Screening Diabetes Screenin g [facility] Start: 2001 Lipid panel Lipid Screening [facility] Start: 2001 Screening for malign ant neoplasm of colon [facility] Start: 1996 Screening for malign ant neoplasm of breast Mammogram Screening [facility] Start: 09-30-1975 Urine microalbumin profile DTaP,Tdap,Td Vaccine (1 - Tdap) [facility] Start: 1974 Anxiety Screening Anxiety Screening [facility] Start: 1974 Depression Screening Depression Scre ening [facility] Start: 1974 Hepatitis C screening Hepatitis C Sc toan [facility] BACTERIAL VAGINOSIS NAAT BACTERI AL VAGINOSIS NAAT Lab Routine Vaginal pain Ordered: 02/08/2025 [facility] Comment on above: Ordered: 02/08/2025 OLIVIA/TRICHOMONAS NAAT OLIVIA /TRICHOMONAS NAAT Lab Routine Vaginal pain Ordered: 02/08/2025 [facility] Work Phone: Comment on above: Ordered: 02/08/2025 Patient referral [facility] Work Phone: Immunizations Immunization Date Immunization Notes Care Provider Sima urbina 10-13-2020 Covid (Pfizer) [facility] 09-22-2020 Covid (Pfizer) [facility] 05-26-2018 influenza, injectabl e, quadrivalent, preservative free [facility] 05-26-2018 influenza, seasonal, injectable [facility] 06-19-2017 influenza, injectabl e, quadrivalent, preservative free [facility] 06-19-2017 influenza, seasonal, injectable [facility] 04-19-2016 influenza, injectabl e, quadrivalent, preservative free [facility] 04-19-2016 influenza, seasonal, [facility] 06-06-2015 influenza, injectabl e, quadrivalent, preservative free [facility] 06-06-2015 influenza, seasonal, injectable [facility] 04-21-2014 influenza, injectabl e, quadrivalent, preservative free [facility] 04-21-2014 influenza, seasonal, injectable [facility] Payers Date Payer Category Payer Private Health Insurance [facility] [id number] 2024 Self-pay [id number] 2023 Unknown [id number] 2021 Medicare MEDICARE [id number] 2021 Medicare [id number] 2013 Unknown [id number] Unknown [id number] Unknown [id number] Unknown [id number] Unknown [id number] Unknown [id number] Social History Date Type Detail Facility Start: 11-24-2017 End: 07-09-2022 Tobacco smoking status NHIS Unknown if ever smoked [facility] Start: 1955 Sex Assigned At Female W [facility] Start: 07-09-2022 Tobacco smoking stat us NHIS Ex-smoker (finding) [facility] Start: 11-07-2024 Sex Female (finding) [facility] Start: 02-08-2025 Alcoholic beverage intake Current drinker of alcohol (finding) [facility] Start: 02-08-2025 History of Social function [facility] Start: 02-08-2025 Tobacco use panel [facility] National Score (1-10 0), lower number is lower risk 65 [facility] Start: 1955 Sex assigned at Not on file [facility] Mental Status Date Assessment Result Facility 11-06-2024 Cognitive function Voice/Name [facility] Work Phone: 10-25-2023 Cognitive function Voice/Name [facility] Work Phone: Telephone encounter Note 02-09-2025 Telephone Encounter - Saray Diaz RN - 02/09/2025 8:13 AM EDT Note Date & Type Note Facility 02-09-2025 Telephone encount er Note Patient notified. Saray Diaz RN [facility] Note 02-09-2025 Telephone Encounter - Saray Diaz RN - 02/09/2025 8:13 AM EDTTelephone Encounter - Anna Campos APRN.CNP - 02/09/2025 7:00 AM EDT Note Date & Type Note Facility 02-09-2025 Miscellaneous Notes Formattin g of this note might be different from the original. Patient notified. Saray Diaz RN Please let the pt know that her vaginal cultures are negative. Anna Campos APRN.CNP documented in this encounter [facility] Telephone encounter Note 02-09-2025 Telephone Encounter - Anna Campos APRN.CNP - 02/09/2025 7:00 AM EDT Note Date & Type Note Facility 02-09-2025 Telephone encount er Note Please let the pt know that her vaginal cultures are negative. Anna Campos APRN.CNP [facility] Progress note 02-08-2025 Note Date & Type Note Facility 02-08-2025 Note HNO ID: [id number] Author: ANNA CAMPOS APRN.CNP Service: ? Author Type: Nurse Practitioner Type: Progress Notes Filed: 02/08/2025 07:54 Note Text: Patient declined red leader. Garcia Farrell is a 69 year old female who presents for problem visit pelvic pressure for 1 week(s). Pap testing reported by patient as normal 2018. HPI: pt states that the pt week she has notice an increase in pressure and discomfort in the vaginal area. She denies any vaginal discharge/odor/itching, incontinence, and not sexually active due to the pain since menopause. OB History Gravida3 Para0 Term0 Preterm0 AB0 Living3 SAB0 IAB0 Ectopic0 Multiple0 Live Births0 District Administrator History LMP: 02/25/2012, Postmenopausal Age at Menarche: Age at First : Age at Menopause: District Administrator History Comments: Sexual Activity: Not Currently; Male Contraception: Tubal Ligation PAST MEDICAL HISTORY Diagnosis Date Osteoporosis Pt reported Reflux PAST SURGICAL HISTORY Procedure Laterality Date LIG/TRNSXJ FLP TUBE ABDL/VAG APPR UNI/BI 1982 FAMILY HISTORY Problem Relation Age of Onset Heart Mother Coronary Artery Disease Mother Stroke Father Hypertension Father Heart Brother Stroke Paternal Grandmother Ischemic Heart Disease Paternal Grandfather Stroke Paternal Grandfather Social History Tobacco Use Smoking status: Never Vaping Use Vaping status: Never Used Substance Use Topics Alcohol use: Yes Comment: occassionally Drug use: No Current Outpatient Medications Medication Sig denosumab (PROLIA) 60 mg/mL syringe Inject 60 mg subcutaneously once every 6 months. esomeprazole mag trihydrate(NEXIUM 40 MG CAP) Take one(1) capsule daily. estradiol (ESTRACE) 0.01 % (0.1 mg/gram) vaginal cream Use 1 gram vaginally at bedtime for 2 weeks then 2-3 times/weeks for maintenance. PROGESTERONE MICRONIZED TRANSDERM. Apply as directed. (Patient not taking: Reported on 02/08/2025) No current facility-administered medications for this visit. Allergies As of Date: 02/08/2025 (No Known Allergies) Fully Assessed 02/08/2025 REVIEW OF SYSTEMS Bladder: No dysuria, gross hematuria, urinary frequency, urinary urgency, or incontinence. Expanded ROS: N/A Allergies and current medication updated:Yes SENSITIVE EXAM: The sensitive examination was discussed with the Patient or Patient's Authorized Juice Standardizer. As applicable, any other physician, advance practice provider, medical student, or other health professional student that will be observing or involved in the sensitive examination for educational or training purposes was discussed with the Patient or Authorized Juice Standardizer. The Patient or Authorized Juice Standardizer has agreed to proceed with the sensitive examination. (Sensitive examination includes inspection and/or palpation of the breasts, pelvis, prostate and anorectal regions). EXAM: BP 120/62 Ht 5' 0 (1.52m) Wt 133 lb 6.4 oz (60.5kg) LMP 02/25/2012 BMI 26.05 kg/(m2). GENERAL: pleasant, female in no apparent distress HEENT: Normocephalic, atraumatic, mucus membranes moist, and no lesions CHEST: Normal inspiratory effort PELVIC: external genitalia normal, normal Bartholin's glands, urethra, [place]'s glands, no vulvar lesions, no cervical lesions, good vaginal support, physiologic discharge present, normal appearing perineal body and perianal region BIMANUAL: uterus normal size, shape and consistency, no adnexal masses, and non-tender NEURO: alert and oriented x3,exam grossly non-focal EXTREMITIES: normal ASSESSMENT AND PLAN: Assessment AND Plan Vaginal pain Orders: OLIVIA/TRICHOMONAS NAAT BACTERIAL VAGINOSIS NAAT Estrace cream ordered Will notify patient of test results. Anna Campos APRN.[place] Medical Decision Making: Problems: Low: Acute, uncomplicated illness or injury Data: Unique test(s) ordered: 2 Risk: Moderate: Drug management Medical Decision Making Level: 3 - Low [facility] History of Present illness Narrative 02-08-2025 Anna Campos APRN.CNP - 02/08/2025 7:15 AM EDT Note Date & Type Note Facility 02-08-2025 History of Presen t illness Narrative Patient declined red leader. Garcia Farrell is a 69 year old female who presents for problem visit pelvic pressure for 1 week(s). Pap testing reported by patient as normal 2018. HPI: pt states that the pt week she has notice an increase in pressure and discomfort in the vaginal area. She denies any vaginal discharge/odor/itching, incontinence, and not sexually active due to the pain since menopause. OB History Gravida3 Para0 Term0 Preterm0 AB0 Living3 SAB0 IAB0 Ectopic0 Multiple0 Live Births0 District Administrator History LMP: 02/25/2012, Postmenopausal Age at Menarche: Age at First : Age at Menopause: District Administrator History Comments: Sexual Activity: Not Currently; Male Contraception: Tubal Ligation PAST MEDICAL HISTORY Diagnosis Date Osteoporosis Pt reported Reflux PAST SURGICAL HISTORY Procedure Laterality Date LIG/TRNSXJ FLP TUBE ABDL/VAG APPR UNI/BI 1982 FAMILY HISTORY Problem Relation Age of Onset Heart Mother Coronary Artery Disease Mother Stroke Father Hypertension Father Heart Brother Stroke Paternal Grandmother Ischemic Heart Disease Paternal Grandfather Stroke Paternal Grandfather Social History Tobacco Use Smoking status: Never Vaping Use Vaping status: Never Used Substance Use Topics Alcohol use: Yes Comment: occassionally Drug use: No Current Outpatient Medications Medication Sig denosumab (PROLIA) 60 mg/mL syringe Inject 60 mg subcutaneously once every 6 months. esomeprazole mag trihydrate(NEXIUM 40 MG CAP) Take one(1) capsule daily. estradiol (ESTRACE) 0.01 % (0.1 mg/gram) vaginal cream Use 1 gram vaginally at bedtime for 2 weeks then 2-3 times/weeks for maintenance. PROGESTERONE MICRONIZED TRANSDERM. Apply as directed. (Patient not taking: Reported on 02/08/2025) No current facility-administered medications for this visit. Allergies As of Date: 02/08/2025 (No Known Allergies) Fully Assessed 02/08/2025 REVIEW OF SYSTEMS Bladder: No dysuria, gross hematuria, urinary frequency, urinary urgency, or incontinence. Expanded ROS: N/A Allergies and current medication updated:Yes SENSITIVE EXAM: The sensitive examination was discussed with the Patient or Patient's Authorized Juice Standardizer. As applicable, any other physician, advance practice provider, medical student, or other health professional student that will be observing or involved in the sensitive examination for educational or training purposes was discussed with the Patient or Authorized Juice Standardizer. The Patient or Authorized Juice Standardizer has agreed to proceed with the sensitive examination. (Sensitive examination includes inspection and/or palpation of the breasts, pelvis, prostate and anorectal regions). EXAM: BP 120/62 Ht 5' 0 (1.52m) Wt 133 lb 6.4 oz (60.5kg) LMP 02/25/2012 BMI 26.05 kg/(m^2). GENERAL: pleasant, female in no apparent distress HEENT: Normocephalic, atraumatic, mucus membranes moist, and no lesions CHEST: Normal inspiratory effort PELVIC: external genitalia normal, normal Bartholin's glands, urethra, [place]'s glands, no vulvar lesions, no cervical lesions, good vaginal support, physiologic discharge present, normal appearing perineal body and perianal region BIMANUAL: uterus normal size, shape and consistency, no adnexal masses, and non-tender NEURO: alert and oriented x3,exam grossly non-focal EXTREMITIES: normal ASSESSMENT AND PLAN: Assessment & Plan Vaginal pain Orders: OLIVIA/TRICHOMONAS NAAT BACTERIAL VAGINOSIS NAAT Estrace cream ordered Will notify patient of test results. Anna Campos APRN.CNP Medical Decision Making: Problems: Low: Acute, uncomplicated illness or injury Data: Unique test(s) ordered: 2 Risk: Moderate: Drug management Medical Decision Making Level: 3 - Low documented in this encounter [facility] Evaluation note Note Date & Type Note Facility Evaluation note No assessment information availa [facility] Work Phone: Evaluation note Note Date & Type Note Facility Evaluation note Diagnosis Onset Date Contusion of left knee acute Strain of left knee acute Contusion of left knee acute Strain of left knee acute Contusion of left knee acute Sprain of left patella acute [facility] Work Phone: Evaluation note Note Date & Type Note Facility Evaluation note Diagnosis Vaginal pain- Primary Unspecified symptom associated with female genital organs documented in this encounter [facility] Reason for referral (narrative) Note Date & Type Note Facility Reason for referral (narrative) No reason for referral information available [facility] Work Phone: Chief Complaint and Reason for [...] No April 13, 2014 7:15am Power of Memory Care Program Director No March 7:15am Advance Directive Response Recorded Date/ Time Advance Directives No March 6:15am Living Will No April 13, 2014 6:15am Power of Memory Care Program Director No March 6:15am Advance Directive Response Recorded Date/ Time Living Will No April 13, 2014 7:15am Do you have a Healthcare Power of Memory Care Program Director? No April 13, 2014 7:15am Advance Directives [...] DO Family Provider Active Dr. Linh Peters , DO Primary Care Provider Active Team Status: Inactive Member Role Status Dates Dr. Linh Peters , DO Primary Care Provide r, Attending Provider, Referring Provider Active Team Status: Active Member Role Status Dates Dr. Linh Peters DO Primary Care Provider Active Team Status: Inactive Member Role Status Dates Dr. Linh Peters DO Primary Care Provider Active Start: November 06, 2024 End: November 06, 2024 Dr. Linh Peters DO Attending Provider Active St art: November 06, 2024 End: November 06, 2024 Dr. Linh Peters DO Referring Provider Active St art: November 06, 2024 End: November 06, 2024 Team Status: Active Member Role/Relationship Status Dates Dr. Linh Peters DO Primary Care Provider Active Team Status: Inactive Member Role/Relationship Status Dates Dr. Linh Peters DO Primary Care Provider Active Start: November 06, 2024 End: November 06, 2024 Dr. Linh Peters DO Attending Provider Active St art: November 06, 2024 End: November 06, 2024 Dr. Linh Peters DO Referring Provider Active St art: November 06, 2024 End: November 06, 2024 Team Status: Inactive Member Role/Relationship Status Dates Dr. Linh Peters DO Primary Care Provider Active Start: January 19, 2025 End: January 19, 2025 Dr. Lihn Peters DO Attending Provider Active St art: January 19, 2025 End: January 19, 2025 Principal Systems Engineer Relationship Specialty Start Date End Date Sofía Wilson PCP - General Family Medicine 04/03/12 Principal Systems Engineer Relationship Specialty Start Date End Date Sofía Wilson PCP - General Family Medicine 04/03/12 Source Comments (unrecognize d section and content) In the event this informatio n is protected by the Federal Confidentiality of Alcohol and Drug Abuse Patient Records regulations: The Federal rules restrict any use of the information to criminally investigate or prosecute any alcohol or drug abuse patient[facility] the event this information is protected by the Federal Confidentiality of Alcohol and Drug Abuse Patient Records regulations: The Federal rules restrict any use of the information to criminally investigate or prosecute any alcohol or drug abuse patient.[facility] Reason for Visit (unrecogniz ed section and content) Reason Comments Problem Visit Reason Onset Date Comments Results 02/09/2025 INFORMATION SOURCE (unrecogn ized section and content) DATE CREATED AUTHOR 02/09/2025 [facility] DATE CREATED AUTHOR AUTHOR'S ORGANIZ ATION 05/01/2025 [facility] FOR RECORDS PERTAINING TO PATIENTS WHO [...] BE BASED ON THE PRIMARY CLINICAL RECORDS. [employer] provides no warranty or guarantee of the accuracy or completeness of information in this document.
--- OUTSIDE RECORDS SUMMARY | 2025-05-07 11:42 | XMS RPT_ITS | CCD ---
Author Organization [facility] Care Team Providers Care [employer] Name Role Phone Dr. Linh Peters Primary Care Provider Dr. Linh Peters Referring Provider SHAD Vilchis Attending Provider [phone] SHAD Bledsoe Attending Provider Dr. Linh Peters DO Primary Care Provider [phone] Dr. Linh Peters DO Attending Provider [phone] Dr. Linh Peters DO Referring Provider Sofía Wilson Primary Care Provider ANNA CAMPOS Attending Unavailable SOFÍA WILSON Primary [...] (Vag fld) Not detected Normal Not detected [facility] Comment on above: Order Comment: Speci men Type: SWAB Ordering Facility: [facility] Address: [address] [place] [address] Performed By: #### C VTV, BVAMP #### [facility] CLIA [id number] [address] [place] [address] [place] OLIVIA/TRICHOMONAS NAATon 0 02-08-2025 C. glabrata RNA EZRA+probe Ql (Vag fld) Not detected Normal Not detected [facility] Comment on above: Order Comment: Speci men Type: SWAB Ordering Facility: [facility] Address: [address] [place] [address] Performed By: #### C VTV, BVAMP #### [facility] CLIA [id number] [address] [place] [address] [place] Olivia sp DNA EZRA+probe Ql (Vag fld) Not detected Normal Not detected [facility] Comment on above: Order Comment: Speci men Type: SWAB Ordering Facility: [facility] Address: [address] [place] [address] Result Comment: The Olivia species group target includes C. albicans, C. tropicalis, C. parapsilosis, and C. dubliniensis. Performed By: #### C VTV, BVAMP #### [facility] CLIA [id number] [address] [place] [address] [place] T. vaginalis DNA EZRA+probe Ql (Unsp spec) Not detected Normal Not detected [facility] Comment on above: Order Comment: Speci men Type: SWAB Ordering Facility: [facility] Address: [address] [place] [address] Performed By: #### C VTV, BVAMP #### [facility] CLIA [id number] [address] [place] [address] [place] CNOVon 02-08-2025 CNOV Office Visit (OBGYWM) ---- GARCIA FARRELL ([id number]) 1955 F Date Time Provider Department 02/08/25 7:30 AM ANNA CAMPOS OBALMASWDelfina During your visit today, we recorded the following information about you: Blood pressure Weight Height 120/62 60.5 kg 1.524 m Anna Campos APRN.CNP 02/08/2025 7:54 AM Signed 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 Garcia Farrell is a 69 year old [...] Living3 SAB0 IAB0 Ectopic0 Multiple0 Live Births0 Float[place] History LMP: 02/25/2012, Postmenopausal Age at Menarche: Age at First : Age at Menopause: Floatman History Comments: Sexual Activity: Not Currently; Male [...] discussed with the Patient or Patient's Authorized Application Software Engineer. As applicable, any other physician, advance practice provider, medical student, or other health professional student that will be observing or involved in the sensitive examination for educational or training purposes was discussed with the Patient or Authorized Application Software Engineer. The Patient or Authorized Application Software Engineer has agreed to proceed with the sensitive [...] external genitalia normal, normal [place]th[place]'s glands, urethra, [place]'s glands, no vulvar lesions, no cervical lesions, [...] [R10.2] Order(s):OLIVIA/TR ICHOMONAS NAAT [SQCVTV] Order #: [id number]. #:[id number] BACTERIAL VAGINOSIS NAAT [SQBVAMP] Order #: [id number]. #:[id number] estradiol (ESTRACE) 0.01 % (0.1 mg/gram) vaginal creamUse 1 gram vaginally at bedtime for 2 weeks then 2-3 times/weeks for maintenance.Disp: 42.5 gRfl: 2 Prescriptions as of 02/08/2025 - denosumab (PROLIA) 60 mg/mL syringe Inject 60 mg subcutaneously once every 6 months. - estradiol (ESTRACE) 0.01 % (0.1 mg/gram) vaginal cream Use 1 g (more content not included)... Normal [facility] Absolute lymphocyte countOrd ered By: Linh Peters on 01-19-2025 Lymphocytes Auto (Unsp spec) [#/Vol] 1.50 10*3/uL 0.83-4.51 [facility] Absolute neutrophil countOrd ered By: Linh Peters on 01-19-2025 Neutrophils (Bld) [#/Vol] 1.6 10*3/uL Low 2.0-7.7 [facility] Anion gap in Serum or Plasma Ordered By: Linh Baciliowade on 01-19-2025 Anion gap [Moles/Vol] 11 mmol/L 5-15 [facility] Automated lymphocyte count a s percentage of total leukocytesOrdered By: Linh Baciliowade on 01-19-2025 Lymphocytes/100 WBC Auto (Unsp spec) 42.6 % High 19-41 [facility] BUN/creatinine ratioOrdered By: Linh Baciliowade on 01-19-2025 Urea nitrogen/Creatinine [Mass ratio] 19.4 mg/mg 10-20 [facility] Basophil percentageOrdered B y: Linh Riberawade on 01-19-2025 Basophils/100 WBC (Bld) 0.6 % 0-1 [facility] Bilirubin, totalOrdered By: Linh Baciliowade on 01-19-2025 Bilirubin [Mass/Vol] 0.30 mg/dL 0.00-1.30 [facility] CBC W/Diff, Automatedon 07-0 Absolute Lymph 1.50 X10 3/uL Normal 0.83-4.51 [facility] Comment on above: Performed By: #### L 500.4100, L506.0400, L503.0106, L100.0100, L501.9520, L500.4050, L501.33305 #### [facility] Laboratory [address] [place], [address] Absolute Neut 1.6 X10 3/uL Low 2.0-7.7 [facility] Comment on above: Performed By: #### L 500.4100, L506.0400, L503.0106, L100.0100, L501.9520, L500.4050, L501.54416 #### [facility] Laboratory [address] [place], [address] Basophils/100 WBC (Bld) 0.6 % Normal 0-1 [facility] Comment on above: Performed By: #### L 500.4100, L506.0400, L503.0106, L100.0100, L501.9520, L500.4050, L501.69660 #### [facility] Laboratory [address] [place], [address] Eosinophils/100 WBC (Bld) 4.5 % Normal 0-5 [facility] Comment on above: Performed By: #### L 500.4100, L506.0400, L503.0106, L100.0100, L501.9520, L500.4050, L501.77262 #### [facility] Laboratory [address] [place], [address] Erythrocyte distribution width (RBC) [Ratio] 13.4 % Normal 11.6-14.6 [facility] Comment on above: Performed By: #### L 500.4100, L506.0400, L503.0106, L100.0100, L501.9520, L500.4050, L501.13928 #### [facility] Laboratory [address] [place], [address] Hematocrit (Bld) [Volume fraction] 43.6 % Normal 37-47 [facility] Comment on above: Performed By: #### L 500.4100, L506.0400, L503.0106, L100.0100, L501.9520, L500.4050, L501.47552 #### [facility] [address] [place], [address] Hemoglobin (Bld) [Mass/Vol] 14.0 g/dL Normal 12.0-15.0 [facility] Comment on above: Performed By: #### L 500.4100, L506.0400, L503.0106, L100.0100, L501.9520, L500.4050, L501.43488 #### [facility] [address] [place], [address] IG% 0.000 Normal 0.0-0.9 [facility] Comment on above: Result Comment: IG% - Immature Granulocytes (promyelocytes, myelocytes and metamyelocytes) > 1% indicates that a LEFT SHIFT is Present. Performed By: #### L 500.4100, L506.0400, L503.0106, L100.0100, L501.9520, L500.4050, L501.66704 #### [facility] Laboratory [address] [place], [address] Lymphocytes/100 WBC (Bld) 42.6 % High 19-41 [facility] Comment on above: Performed By: #### L 500.4100, L506.0400, L503.0106, L100.0100, L501.9520, L500.4050, L501.44118 #### [facility] [address] [place], [address] MCH (RBC) [Entitic mass] 31.7 pg Normal 27.0-32.0 [facility] Comment on above: Performed By: #### L 500.4100, L506.0400, L503.0106, L100.0100, L501.9520, L500.4050, L501.21879 #### [facility] [address] [place], [address] MCHC (RBC) [Mass/Vol] 32.1 g/dL Normal 32-36 [facility] Comment on above: Performed By: #### L 500.4100, L506.0400, L503.0106, L100.0100, L501.9520, L500.4050, L501.77166 #### [facility] [address] [place], [address] MCV (RBC) [Entitic vol] 98.6 fL Normal 81-99 [facility] Comment on above: Performed By: #### L 500.4100, L506.0400, L503.0106, L100.0100, L501.9520, L500.4050, L501.15180 #### [facility] [address] [place], [address] Monocytes/100 WBC (Bld) 8.0 % Normal 0-10 [facility] Comment on above: Performed By: #### L 500.4100, L506.0400, L503.0106, L100.0100, L501.9520, L500.4050, L501.48636 #### [facility] [address] [place], [address] Neutrophils/100 WBC (Bld) 44.3 % Low 47-70 [facility] Comment on above: Performed By: #### L 500.4100, L506.0400, L503.0106, L100.0100, L501.9520, L500.4050, L501.79622 #### [facility] [address] [place], [address] Nucleated RBC (Bld) [#/Vol] 0 10*3/uL Normal 0-5 [facility] Comment on above: Performed By: #### L 500.4100, L506.0400, L503.0106, L100.0100, L501.9520, L500.4050, L501.19221 #### [facility] [address] [place], [address] Platelet mean volume (Bld) [Entitic vol] 11.2 fL Normal 6.2-12.0 [facility] Comment on above: Performed By: #### L 500.4100, L506.0400, L503.0106, L100.0100, L501.9520, L500.4050, L501.89110 #### [facility] [address] [place], [address] Platelets (Bld) [#/Vol] 195 10*3/uL Normal 150-450 [facility] Comment on above: Performed By: #### L 500.4100, L506.0400, L503.0106, L100.0100, L501.9520, L500.4050, L501.54731 #### [facility] Laboratory [address] [place], [address] (034) RBC (Bld) [#/Vol] 4.42 10*6/uL Normal 4.2-5.4 [facility] Comment on above: Performed By: #### L 500.4100, L506.0400, L503.0106, L100.0100, L501.9520, L500.4050, L501.87144 #### [facility] Laboratory [address] [place], [address] (319) RDW SD 48.0 fl High 35.1-43.9 [facility] Comment on above: Performed By: #### L 500.4100, L506.0400, L503.0106, L100.0100, L501.9520, L500.4050, L501.12690 #### [facility] [address] [place], [place], [id number] (174) WBC (Bld) [#/Vol] 3.5 10*3/uL Low 4.4-11.0 [facility] Comment on above: Performed By: #### L 500.4100, L506.0400, L503.0106, L100.0100, L501.9520, L500.4050, L501.91911 #### [facility] Laboratory [address] [place], [address] Calculated very low density lipoprotein (VLDL) cholesterol measurementOrdered By: Linh Peters on 01-19-2025 Calculated very low density lipoprotein (VLDL) cholesterol measurement 31 mg/dL 5-40 [facility] Carbon dioxide, total [Moles /volume] in Central venous bloodOrdered By: Linh Peters on 01-19-2025 CO2 [Moles/Vol] 23.1 mmol/L 21.0-32.0 [facility] Chloride assayOrdered By: Kaylin Peters on 01-19-2025 Chloride [Moles/Vol] 106 mmol/L 98-108 [facility] Comprehensive Metabolic Prof ilon 01-19-2025 Albumin [Mass/Vol] 4.4 g/dL Normal 3.4-4.8 [facility] Comment on above: Performed By: #### L 500.4100, L506.0400, L503.0106, L100.0100, L501.9520, L500.4050, L501.11693 #### [facility] Laboratory [address] [place], [address] Albumin/Globulin [Mass ratio] 1.6 {ratio} Normal 0.9-2.4 [facility] Comment on above: Performed By: #### L 500.4100, L506.0400, L503.0106, L100.0100, L501.9520, L500.4050, L501.43368 #### [facility] Laboratory [address] [place], [address] ALK PHOS 62 U/L Normal 35-104 [facility] Comment on above: Performed By: #### L 500.4100, L506.0400, L503.0106, L100.0100, L501.9520, L500.4050, L501.97354 #### [facility] Laboratory [address] [place], [address] ALT [Catalytic activity/Vol] 24 U/L Normal <=34 [facility] Comment on above: Performed By: #### L 500.4100, L506.0400, L503.0106, L100.0100, L501.9520, L500.4050, L501.41637 #### [facility] [address] [place], [address] AST [Catalytic activity/Vol] 21 U/L Normal <=31 [facility] Comment on above: Performed By: #### L 500.4100, L506.0400, L503.0106, L100.0100, L501.9520, L500.4050, L501.32347 #### [facility] [address] [place], [address] Bilirubin [Mass/Vol] 0.30 mg/dL Normal 0.00-1.30 [facility] Comment on above: Performed By: #### L 500.4100, L506.0400, L503.0106, L100.0100, L501.9520, L500.4050, L501.04902 #### [facility] [address] [place], [address] BUN/CRE 19.4 RATIO Normal 10-20 [facility] Comment on above: Performed By: #### L 500.4100, L506.0400, L503.0106, L100.0100, L501.9520, L500.4050, L501.15027 #### [facility] [address] [place], [address] Calcium [Mass/Vol] 10.4 mg/dL Normal 7.6-11.0 [facility] Comment on above: Performed By: #### L 500.4100, L506.0400, L503.0106, L100.0100, L501.9520, L500.4050, L501.55560 #### [facility] [address] [place], [address] Chloride [Moles/Vol] 106 mmol/L Normal 98-108 [facility] Comment on above: Performed By: #### L 500.4100, L506.0400, L503.0106, L100.0100, L501.9520, L500.4050, L501.62069 #### [facility] [address] [place], [address] CO2 [Moles/Vol] 23.1 mmol/L Normal 21.0-32.0 [facility] Comment on above: Performed By: #### L 500.4100, L506.0400, L503.0106, L100.0100, L501.9520, L500.4050, L501.03245 #### [facility] [address] [place], [address] Creatinine [Mass/Vol] 0.79 mg/dL Normal 0.70-1.20 [facility] Comment on above: Performed By: #### L 500.4100, L506.0400, L503.0106, L100.0100, L501.9520, L500.4050, L501.87413 #### [facility] [address] [place], [address] GAP 11 Normal 5-15 [facility] Comment on above: Performed By: #### L 500.4100, L506.0400, L503.0106, L100.0100, L501.9520, L500.4050, L501.03494 #### [facility] Laboratory [address] [place], [address] GFR/1.73 sq M.predicted among non-blacks MDRD (S/P/Bld) [Vol rate/Area] 82 mL/min/{1.73_m2} Normal >60 [facility] Comment on above: Result Comment: mL/m in/1.73m2 CKD-EPI Creatinine Equation (2020) Performed By: #### L 500.4100, L506.0400, L503.0106, L100.0100, L501.9520, L500.4050, L501.34473 #### [facility] [address] [place], [address] Globulin (S) [Mass/Vol] 2.8 g/dL Normal 2.2-4.2 [facility] Comment on above: Performed By: #### L 500.4100, L506.0400, L503.0106, L100.0100, L501.9520, L500.4050, L501.25114 #### [facility] Laboratory [address] [place], [address] Glucose [Mass/Vol] 90 mg/dL Normal 70-99 [facility] Comment on above: Performed By: #### L 500.4100, L506.0400, L503.0106, L100.0100, L501.9520, L500.4050, L501.47121 #### [facility] [address] [place], [address] Potassium [Moles/Vol] 4.6 mmol/L Normal 3.3-5.1 [facility] Comment on above: Performed By: #### L 500.4100, L506.0400, L503.0106, L100.0100, L501.9520, L500.4050, L501.69685 #### [facility] [address] [place], [address] Sodium [Moles/Vol] 139 mmol/L Normal 133-145 [facility] Comment on above: Performed By: #### L 500.4100, L506.0400, L503.0106, L100.0100, L501.9520, L500.4050, L501.39668 #### [facility] [address] [place], [address] T PROT 7.2 g/dL Normal 5.9-8.4 [facility] Comment on above: Performed By: #### L 500.4100, L506.0400, L503.0106, L100.0100, L501.9520, L500.4050, L501.27738 #### [facility] [address] [place], [address] Urea nitrogen [Mass/Vol] 15 mg/dL Normal 4-19 [facility] Comment on above: Performed By: #### L 500.4100, L506.0400, L503.0106, L100.0100, L501.9520, L500.4050, L501.76879 #### [facility] [address] [place], [address] Eosinophil percentageOrdered By: Lihn Peters on 01-19-2025 Eosinophils/100 WBC (Bld) 4.5 % 0-5 [facility] Erythrocyte distribution wid th ratioOrdered By: Linh Peters on 01-19-2025 Erythrocyte distribution width (RBC) [Ratio] 13.4 % 11.6-14.6 [facility] Erythrocyte distribution wid th standard deviationOrdered By: Linh Peters on 01-19-2025 Erythrocyte distribution width (RBC) [Ratio] 48.0 fl High 35.1-43.9 [facility] Free T3on 01-19-2025 Free T3 [Mass/Vol] 2.7 pg/mL Normal 2.18-3.98 [facility] Comment on above: Performed By: #### L 500.4100, L506.0400, L503.0106, L100.0100, L501.9520, L500.4050, L501.28075 #### [facility] [address] [place], [address] Free D9Yycynff By: Linh allen on 01-19-2025 Free T3 [Mass/Vol] 2.7 pg/mL 2.18-3.98 [facility] Glomerular filtration rate ( GFR) estimation/1.73 sq m using serum, plasma, or whole bOrdered By: Linh Peters on 01-19-2025 GFR/1.73 sq M.predicted among non-blacks MDRD (S/P/Bld) [Vol rate/Area] 82 mL/min/{1.73_m2} >60 [facility] Comment on above: mL/min/1.73m2 CKD-EP I Creatinine Equation (2020) Hematocrit Auto (Bld) [Volum e fraction]Ordered By: Linh Peters on 01-19-2025 Hematocrit (Bld) [Volume fraction] 43.6 % 37-47 [facility] Hemoglobin measurementOrdere d By: Linh Peters on 01-19-2025 Hemoglobin (Bld) [Mass/Vol] 14.0 g/dL 12.0-15.0 [facility] Immature granulocytes/100 WB C Auto (Bld)Ordered By: Linh Peters on 01-19-2025 Immature granulocytes/100 WBC (Bld) 0.000 % 0.0-0.9 [facility] Comment on above: IG% - Immature Granu locytes (promyelocytes, myelocytes and metamyelocytes) > 1% indicates that a LEFT SHIFT is Present. LDL calc ser/plasOrdered By: Linh Peters on 01-19-2025 Cholesterol in LDL [Mass/Vol] 156 mg/dL [facility] Comment on above: Fgyanovimh=569-676 m g/dL & Higher Xzcv=401 mg/dL or greater Laboratory - Chemistry and C hemistry - challengeOrdered By: Linh Peters on 01-19-2025 AST [Catalytic activity/Vol] 21 U/L <32 [facility] Lipid Profileon 01-19-2025 CHOL:HDL 4.10 Normal [facility] Comment on above: Performed By: #### L 500.4100, L506.0400, L503.0106, L100.0100, L501.9520, L500.4050, L501.94540 #### [facility] Laboratory [address] [place], [address] Cholesterol [Mass/Vol] 247 mg/dL High <=200 [facility] Comment on above: Result Comment: Chol esterol level, Desirable <200 mg/dL Borderline high cholesterol 200-239 mg/dL High cholesterol >=240 mg/dL Recommendations of the NCEP Adult Treatment Panel for the following risk-cutoff thresholds for the [place] population. Performed By: #### L 500.4100, L506.0400, L503.0106, L100.0100, L501.9520, L500.4050, L501.60744 #### [facility] Laboratory [address] [place], [address] Cholesterol in HDL [Mass/Vol] 60 mg/dL Normal [facility] Comment on above: Result Comment: Sandi onal Cholesterol Education Program (NCEP) guidelines: <40 mg/dL: Low HDL-cholesterol (major risk factor for CHD) >= 60 mg/dL: High HDL-cholesterol (negative risk factor for CHD) HDL-cholesterol is affected by a number of factors, e.g. smoking, exercise, hormones, sex and age. Performed By: #### L 500.4100, L506.0400, L503.0106, L100.0100, L501.9520, L500.4050, L501.69569 #### [facility] Laboratory [address] [place], [address] Cholesterol in LDL [Mass/Vol] 156 mg/dL Normal [facility] Comment on above: Result Comment: Bord khzizm=557-279 mg/dL Higher Lszk=482 mg/dL or greater Performed By: #### L 500.4100, L506.0400, L503.0106, L100.0100, L501.9520, L500.4050, L501.41033 #### [facility] Laboratory [address] [place], [address] Cholesterol in VLDL [Mass/Vol] 31 mg/dL Normal 5-40 [facility] Comment on above: Performed By: #### L 500.4100, L506.0400, L503.0106, L100.0100, L501.9520, L500.4050, L501.22700 #### [facility] Laboratory [address] [place], [address] Triglyceride [Mass/Vol] 154 mg/dL Normal [facility] Comment on above: Result Comment: The drugs N-Acetylcysteine and Metamizole may falsely depress this assay. Normal range: <150 mg/dL Borderline High: 150-199 mg/dL High: 200-499 mg/dL Very High: >500 mg/dL Performed By: #### L 500.4100, L506.0400, L503.0106, L100.0100, L501.9520, L500.4050, L501.30874 #### [facility] Laboratory [address] [place], [place], [id number] MCV (mean corpuscular volume ) determinationOrdered By: Linh Peters on 01-19-2025 MCV (RBC) [Entitic vol] 98.6 fL 81-99 [facility] Mean corpuscular hemoglobin (MCH) determinationOrdered By: Linh Peters on 01-19-2025 MCH (RBC) [Entitic mass] 31.7 pg 27.0-32.0 [facility] Mean corpuscular hemoglobin concentration (MCHC) determinationOrdered By: Linh Peters on 01-19-2025 MCHC (RBC) [Mass/Vol] 32.1 g/dL 32-36 [facility] Mean platelet volume determi nationOrdered By: Linh Peters on 01-19-2025 Platelet mean volume (Bld) [Entitic vol] 11.2 fL 6.2-12.0 [facility] Monocyte percentageOrdered B y: Linh Peters on 01-19-2025 Monocytes/100 WBC (Bld) 8.0 % 0-10 [facility] Neutrophil percentageOrdered By: Linh Peters on 01-19-2025 Neutrophils/100 WBC (Bld) 44.3 % Low 47-70 [facility] Nucleated red blood cell per centageOrdered By: Linh Peters on 01-19-2025 Nucleated RBC/100 WBC (Bld) [Ratio] 0 % 0-5 [facility] Platelet countOrdered By: Kaylin Peters on 01-19-2025 Platelets (Bld) [#/Vol] 195 10*3/uL 150-450 [facility] Potassium measurement (mass/ volume)Ordered By: Linh Peters on 01-19-2025 Potassium (Unsp spec) [Mass/Vol] 4.6 mmol/L 3.3-5.1 [facility] RBC Auto (Bld) [#/Vol]Ordere d By: Linh Peters on 01-19-2025 RBC (Bld) [#/Vol] 4.42 10*6/uL 4.2-5.4 [facility] Screening total cholesterol/ high density lipoprotein (HDL) cholesterol ratioOrdered By: Linh Peters on 01-19-2025 Cholesterol.total/Cholest elba in HDL [Mass ratio] 4.10 {ratio} [facility] Serum creatinine measurement (mass/volume)Ordered By: Linh Peters on 01-19-2025 Creatinine [Mass/Vol] 0.79 mg/dL 0.70-1.20 [facility] Serum globulin measurementOr dered By: Linh Peters on 01-19-2025 Globulin (S) [Mass/Vol] 2.8 g/dL 2.2-4.2 [facility] Serum glucose measurement (m ass/volume)Ordered By: Linh Peters on 01-19-2025 Glucose [Mass/Vol] 90 mg/dL 70-99 [facility] Serum or plasma alanine pereira otransferase (ALT) measurementOrdered By: Linh Peters on 01-19-2025 ALT [Catalytic activity/Vol] 24 U/L <35 [facility] Serum or plasma albumin jesus urement (mass/volume)Ordered By: Linh Peters on 01-19-2025 Albumin [Mass/Vol] 4.4 g/dL 3.4-4.8 [facility] Serum or plasma albumin/glob ulin mass ratioOrdered By: Linh Peters on 01-19-2025 Albumin/Globulin [Mass ratio] 1.6 {ratio} 0.9-2.4 [facility] Serum or plasma alkaline aliza sphatase measurementOrdered By: Linh Peters on 01-19-2025 ALP [Catalytic activity/Vol] 62 U/L 35-104 [facility] Serum or plasma calcium jesus urement (mass/volume)Ordered By: Linh Peters on 01-19-2025 Calcium [Mass/Vol] 10.4 mg/dL 7.6-11.0 [facility] Serum or plasma cholesterol in HDL measurement (mass/volume)Ordered By: Linh Peters on 01-19-2025 Cholesterol in HDL [Mass/Vol] 60 mg/dL >40 [facility] Comment on above: National Cholesterol Education Program (NCEP) guidelines:<40 mg/dL: Low HDL-cholesterol (major risk factor for CHD)>= 60 mg/dL: High HDL-cholesterol (negative risk factor for CHD)HDL-cholesterol is affected by a number of factors, e.g. smoking, exercise, hormones, sex and age. Serum or plasma cholesterol measurement (mass/volume)Ordered By: Linh Peters on 01-19-2025 Cholesterol [Mass/Vol] 247 mg/dL High <201 [facility] Comment on above: Cholesterol level, D esirable <200 mg/dLBorderline high cholesterol 200-239 mg/dLHigh cholesterol >=240 mg/dLRecommendations of the NCEP Adult Treatment Panel for the following risk-cutoff thresholds for the [place] population. Serum or plasma urea nitroge n measurement (mass/volume)Ordered By: Linh Peters on 01-19-2025 Urea nitrogen [Mass/Vol] 15 mg/dL 4-19 [facility] Sodium levelOrdered By: Linh Peters on 01-19-2025 Sodium [Moles/Vol] 139 mmol/L 133-145 [facility] T4 Free Directon 01-19-2025 T4 FREE DIRECT 1.30 ng/dL Normal 0.76-1.46 [facility] Comment on above: Performed By: #### L 500.4100, L506.0400, L503.0106, L100.0100, L501.9520, L500.4050, L501.19806 #### [facility] Laboratory [address] [place], [place], [id number] T4 freeOrdered By: Linh Zuniga s on 01-19-2025 Free T4 [Mass/Vol] 1.30 ng/dL 0.76-1.46 [facility] TSH DL <= 0.005 mIU/L QnOrde red By: Linh Peters on 01-19-2025 TSH Qn 2.140 uIU/mL 0.300-4.200 [facility] Thyroid Stim Hormone (TSH)on 01-19-2025 TSH 2.140 uIU/mL Normal 0.300-4.200 [facility] Comment on above: Performed By: #### L 500.4100, L506.0400, L503.0106, L100.0100, L501.9520, L500.4050, L501.65476 #### [facility] Laboratory [address] [place], [place], [id number] Total proteinOrdered By: Donna Peters on 01-19-2025 Protein [Mass/Vol] 7.2 g/dL 5.9-8.4 [facility] Triglycerides measurementOrd ered By: Linh Peters on 01-19-2025 Triglyceride [Mass/Vol] 154 mg/dL <199 [facility] Comment on above: The drugs N-Acetylcy steine and Metamizole may falsely depress this assay. Normal range: <150 mg/dLBorderline High: 150-199 mg/dLHigh: 200-499 mg/dLVery High: >500 mg/dL Vitamin B12on 01-19-2025 Cobalamin (Vitamin B12) [Mass/Vol] 227 pg/mL Normal 180-914 [facility] Comment on above: Performed By: #### L 500.4100, L506.0400, L503.0106, L100.0100, L501.9520, L500.4050, L501.62243 #### [facility] Laboratory [address] [place], [place], [id number] Vitamin B12 ser/plasOrdered By: Linh Peters on 01-19-2025 Cobalamin (Vitamin B12) [Mass/Vol] 227 pg/mL 180-914 [facility] White blood cell (WBC) count Ordered By: Linh Peters on 01-19-2025 WBC (Bld) [#/Vol] 3.5 10*3/uL Low 4.4-11.0 [facility] Dexa Bone Density Studyon Dexa Bone Density Study [facility] Imaging [address] [address] Dexa Bone Density Study MR#: [id number] Acct: [id number] Name: GARCIA FARRELL Rep #: [id number] : 1955 F 68 From: Bean lopez MD PCP: Dr. Linh Peters DO Status: [facility] Study: Dexa Bone Density Study Date of Exam: 06/04/24 Exam# [id number] Ordering Dr: Linh Peters DO -[id number] STUDY: DUAL ENERGY X-RAY ABSORPTIOMETRY / [...] 15:25 EST Reading Location ID and State: [address] [place] [address] , Service support , CC: Dr. Linh Peters, In School Suspension Coordinator: Signed Normal [facility] SCRN MAMM (CAD)W/REUBENMarianne Thakkar n 06-04-2024 SCRN MAMM (CAD)W/REUBEN [facility] Imaging Services [address] [place] [address] SCRN MAMM (CAD)W/REUBENMarianne IRIZARRY MR#: [id number] Acct: [id number] Name: GARCIA FARRELL Rep #: [id number] : 1955 F 68 From: Bean lopez MD PCP: Dr. Linh Peters DO Status: [facility] Study: SCRN MAMM (CAD)W/REUBEN BILAT Date of Exam: 05/22 11/12 Exam# [id number] Ordering Dr: Linh Peters DO -[id number] MAMMOGRAPHY - BILATERAL SCREENING REASON FOR [...] delay biopsy of a clinically suspicious abnormality. [id number] Electronically Signed: Bean Carter MD at 15:48 EST , CC: Dr. Linh Peters DO [employer] Suspension Coordinator: Signed Normal [facility] Absolute lymphocyte countOrd ered By: Dr. Peters on 11-06-2022 Lymphocytes Auto (Unsp spec) [#/Vol] 1.26 10*3/uL 0.83-4.51 [facility] Basophil percentageOrdered B y: Dr. Peters on 11-06-2022 Basophils/100 WBC (Bld) 0.6 % 0-1 [facility] Bilirubin [Mass/Vol] 0.40 mg/dL 0.20-1.00 [facility] Comment on above: For patients on eltr ombopag therapy, use of Dimension [place] TBIL is not recommended. Chloride [Moles/Vol] 110 mmol/L 98-107 [facility] Cholesterol [Mass/Vol] 262 mg/dL <200 [facility] Comment on above: <200 mg/dL Desirable 200-240 mg/dL Borderline >240 mg/dL High Risk Eosinophils/100 WBC (Bld) 3.5 % 0-5 [facility] Glucose [Mass/Vol] 106 mg/dL 74-106 [facility] Comment on above: Fasting Glucose resu lt from 100 to 125 mg/dL suggests IMPAIRED HOMEOSTASIS per A.D.A. criteria. Neutrophils (Bld) [#/Vol] 1.5 10*3/uL 2.0-7.7 [facility] Neutrophils/100 WBC (Bld) 46.4 % 47-70 [facility] Potassium [Moles/Vol] 4.5 mmol/L 3.5-5.1 [facility] Protein [Mass/Vol] 7.3 g/dL 6.4-8.2 [facility] Sodium [Moles/Vol] 138 mmol/L 136-145 [facility] Triglyceride [Mass/Vol] 172 mg/dL <199 [facility] Comment on above: The drugs N-Acetylcy steine and Metamizole may falsely depress this assay.Serum Triglycerides Reference Interval Normal <150 mg/dL Borderline high 150 - 199 mg/dL High 200 - 499 mg/dL Very High > or = 500 mg/dL WBC (Bld) [#/Vol] 3.2 10*3/uL 4.4-11.0 [facility] Blood erythrocytes count (nu mber/volume)Ordered By: Dr. Peters on 11-06-2022 RBC (Bld) [#/Vol] 4.39 10*6/uL 4.2-5.4 [facility] Blood hemoglobin measurement (mass/volume)Ordered By: Dr. Peters on 11-06-2022 Hemoglobin (Bld) [Mass/Vol] 13.9 g/dL 12.0-15.0 [facility] Blood lymphocytes/100 leukoc ytesOrdered By: Dr. Peters on 11-06-2022 Lymphocytes/100 WBC (Bld) 39.7 % 19-41 [facility] Blood monocytes/100 leukocyt esOrdered By: Dr. Peters on 11-06-2022 Monocytes/100 WBC (Bld) 9.5 % 0-10 [facility] Blood platelet mean volumeOr dered By: Dr. Peters on 11-06-2022 Platelet mean volume (Bld) [Entitic vol] 10.8 fL 6.2-12.0 [facility] Determination of erythrocyte mean corpuscular volume (MCV)Ordered By: Dr. Peters on 11-06-2022 MCV (RBC) [Entitic vol] 100.2 fL 81-99 [facility] Hematocrit Auto (Bld) [Volum e fraction]Ordered [...] Globulin (S) [Mass/Vol] 3.4 g/dL 2.2-4.2 [facility] Urea nitrogen/Creatinine [Mass ratio] 26.1 mg/mg 10-20 [facility] Laboratory - Hematology and Cell countsOrdered By: Dr. Peters on 11-06-2022 Erythrocyte distribution width (RBC) [Entitic vol] 49.1 fL 35.1-43.9 [facility] Erythrocyte distribution width (RBC) [Ratio] 13.2 % [...] 11-06-2022 MCHC (RBC) [Mass/Vol] 31.6 g/dL 32-36 [facility] No Panel InformationOrdered By: Dr. Peters [...] plasma albumin jesus urement (mass/volume)Ordered By: Dr. ePters on 11-06-2022 Albumin [Mass/Vol] 3.9 g/dL 3.2-5.0 [facility] Serum or plasma albumin/glob ulin mass ratioOrdered By: Dr. Peters on 11-06-2022 Albumin/Globulin [Mass ratio] 1.1 {ratio} 0.9-2.4 [facility] Serum or plasma calcium jesus urement (mass/volume)Ordered By: Dr. Peters on 11-06-2022 Calcium [Mass/Vol] 10.0 mg/dL 8.5-10.1 [facility] Serum or plasma cholesterol in HDL [...] on 11-06-2022 Creatinine [Mass/Vol] 0.81 mg/dL 0.55-1.02 [facility] Comment on above: The validity of [...] 11-06-2022 Urea nitrogen [Mass/Vol] 21 mg/dL 7-18 [facility] [...] 152.4 cm Anna Campos APRN.KAITLIN Work Phone: [facility] 02-08-2025 07:23-0400 Body mass index (BMI) [Ratio] 26.05 kg/m2 Anna Campos APRNCRISTIAN Work Phone: [facility] 02-08-2025 07:23-0400 Body weight 60.51 kg Anna Campos APRNCRISTIAN Work Phone: [facility] 02-08-2025 07:23-0400 Diastolic blood pressure 62 mm[Hg] Anna Andres RAMP FLIGHT ATTENDANT.AUTOMOTIVE SALES SPECIALIST Work Phone: [facility] 02-08-2025 07:23-0400 Systolic blood pressure 120 mm[Hg] Anna Campos RAMP FLIGHT ATTENDANT.AUTOMOTIVE SALES SPECIALIST Work Phone: [facility] 11-06-2024 12:30-0400 Body height 152.[address] [...] [place] 10-25-2023 12:57-0400 Body height 152.4 cm [facility] 10-25-2023 12:57-0400 Body mass index (BMI) [Ratio] 25.7 kg/m2 [facility] 10-25-2023 12:57-0400 Body temperature 96 [degF] [facility] 10-25-2023 12:57-0400 Body weight 59.87 kg [facility] 10-25-2023 12:57-0400 Diastolic blood pressure 62 mm[Hg] [facility] 10-25-2023 12:57-0400 Heart rate 66 /min [facility] 10-25-2023 12:57-0400 Respiratory rate 16 /min [facility] 10-25-2023 12:57-0400 SaO2% (BldA) [Mass fraction] [...] Phone: 11-09-2021 13:26-0400 Body height 152.4 cm [facility] Work Phone: Encounters Encounter Date Encounter Type Care Provider Facility Start: 05-07-[facility] Start: 02-09-2025 End: 02-09-2025 Follow-up encounter Anna Campos APRN.CNP Work Phone: OB/Gynecology Comment on above: Results Start: 02-08-2025 End: 02-08-2025 Patient encounter procedure Anna Campos APRN.AUTOMOTIVE SALES SPECIALIST Work Phone: OB/Gynecology Comment on above: Vaginal pain (Primar y Dx) Start: 02-08-2025 End: 02-08-2025 ambulatory ANNA CAMPOS Facility:[facility] Start: 01-19-2025 End: 01-19-[address] Linh Peters DO Work Phone: -Laboratory Joseph Costello [facility] Start: 01-19-2025 End: 01-19-[address] Linh Peters DO -Laboratory [facility] Costello [facility] Start: 01-19-2025 End: 01-19-2025 ambulatory Linh Peters Facility:[facility] Start: 11-06-2024 End: 11-06-[address] Linh Peters DO -Medical Out Work Phone: Start: 11-06-2024 End: 11-06-[address] Linh Peters DO Work Phone: [facility] Work Phone: Start: 06-04-2024 End: 06-04-2024 ambulatory Linh Peters Facility:[facility] Start: 05-08-2024 End: 05-08-2024 [facility] [...] encounter procedure Dr. Linh Peters Work Phone: [facility] Start: 07-05-2022 End: 07-05-[address] Linh Peters Work Phone: [facility] Work Phone: Start: 07-05-2022 End: 07-05-[address] Linh Peters Work Phone: [facility] Start: 06-13-2022 End: 06-13-[address] Linh Peters Work Phone: [facility] Start: 06-11-2022 End: 06-11-2022 [...] RSV Vaccine (1 - 1-dose 75+ series) [facility] Start: 03-22-2025 Influenza vaccination Influenza Vacc ine (#1) [facility] Start: 07-22-2024 Advance Directive Discussion Advance Directive Discussion [facility] Start: 03-22-2024 Covid-19 Vaccine ( season) Covid-19 Vaccine ( season) [facility] Start: 06-11-2022 Patient referral [facility] Work Phone: Start: 11-09-2021 Dual energy X-ray absorptiometry Dexa Bone Density Study [facility] Work Phone: Start: 2021 Screening for osteoporosis Bone Density Screening [facility] Start: 09-19-2021 Medicare Annual Well ness Visit Medicare Annual Wellness Visit [facility] Start: 2006 Pneumococcal Vaccine : 50+ (1 of 1 - PCV) Pneumococcal Vaccine: 50+ (1 of 1 - PCV) [facility] Start: 2006 Shingrix Vaccine (1 of 2) Landry grix Vaccine (1 of 2) [facility] Start: 2001 Diabetes Screening Diabetes Screenin g [facility] Start: 2001 Lipid panel Lipid Screening [facility] Start: 2001 Screening for malign ant neoplasm of colon [facility] Start: 1996 Screening for malign ant neoplasm of breast Mammogram Screening [facility] Start: 09-30-1975 Urine microalbumin profile DTaP,Tdap,Td Vaccine (1 - Tdap) [facility] Start: 1974 Anxiety Screening Anxiety Screening [facility] Start: 1974 Depression Screening Depression Scre ening [facility] Start: 1974 Hepatitis C screening Hepatitis C Sc toan [facility] BACTERIAL VAGINOSIS NAAT BACTERI AL VAGINOSIS NAAT Lab Routine Vaginal pain Ordered: 02/08/2025 [facility] Comment on above: Ordered: 02/08/2025 OLIVIA/TRICHOMONAS NAAT OLIVIA /TRICHOMONAS NAAT Lab Routine Vaginal pain Ordered: 02/08/2025 [facility] Work Phone: Comment on above: Ordered: 02/08/2025 Patient referral [facility] Work Phone: Immunizations Immunization Date Immunization Notes Care Provider Sima urbina 10-13-2020 Covid (Pfizer) [facility] 09-22-2020 Covid (Pfizer) [facility] 05-26-2018 influenza, injectabl e, quadrivalent, preservative free [facility] 04-19-2016 influenza, seasonal, [facility] 06-06-2015 influenza, injectabl e, quadrivalent, preservative free [facility] 06-06-2015 influenza, seasonal, injectable [facility] 04-21-2014 influenza, injectabl e, quadrivalent, preservative free [facility] 04-21-2014 influenza, seasonal, injectable [facility] Payers Date Payer Category Payer Private Health Insurance [facility] [id number] 2024 Self-pay [id number] 2023 Unknown [id number] 2021 Medicare MEDICARE [id number] 2021 Medicare [id number] 2013 Unknown [id number] Unknown [id number] Unknown [id number] Unknown [id number] Unknown [id number] Unknown [id number] Social History Date Type Detail Facility Start: 11-24-2017 End: 07-09-2022 Tobacco smoking status NHIS Unknown if ever smoked [facility] Start: 1955 Sex Assigned At Female [facility] Start: 07-09-2022 Tobacco smoking stat us NHIS Ex-smoker (finding) [facility] Start: 11-07-2024 Sex Female (finding) [facility] Start: 02-08-2025 Alcoholic beverage intake Current drinker of alcohol (finding) [facility] Start: 02-08-2025 History of Social function [facility] Start: 02-08-2025 Tobacco use panel [facility] National Score (1-10 0), lower number is lower risk 65 [facility] Start: 1955 Sex assigned at Not on file [facility] Mental Status Date Assessment Result Facility 11-06-2024 Cognitive function Voice/Name [facility] Work Phone: 10-25-2023 Cognitive function Voice/Name [facility] Work Phone: Telephone encounter Note 02-09-2025 Telephone Encounter - Saray Diaz RN - 02/09/2025 8:13 AM EDT Note Date & Type Note Facility 02-09-2025 Telephone encount er Note Patient notified. Saray Diaz RN [facility] Note 02-09-2025 Telephone Encounter - Saray Diaz [...] Anna Campos APRN.CNP documented in this encounter [facility] Telephone encounter Note 02-09-2025 Telephone Encounter - Anna Campos APRN.CNP - 02/09/2025 7:00 AM EDT Note Date & Type Note Facility 02-09-2025 Telephone encount er Note Please let the pt know that her vaginal cultures are negative. Anna Campos APRN.CNP [facility] Progress note 02-08-2025 Note Date & Type Note Facility 02-08-2025 Note HNO ID: [id number] Author: ANNA CAMPOS APRN.CNP Service: ? Author Type: Nurse Practitioner Type: Progress Notes Filed: 02/08/2025 07:54 Note Text: 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 Garcia Farrell is a 69 year old [...] Living3 SAB0 IAB0 Ectopic0 Multiple0 Live Births0 Floatman History LMP: 02/25/2012, Postmenopausal Age at Menarche: Age at First : Age at Menopause: Floatman History Comments: Sexual Activity: Not Currently; Male [...] discussed with the Patient or Patient's Authorized Application Software Engineer. As applicable, any other physician, advance practice provider, medical student, or other health professional student that will be observing or involved in the sensitive examination for educational or training purposes was discussed with the Patient or Authorized Application Software Engineer. The Patient or Authorized Application Software Engineer has agreed to proceed with the sensitive [...] external genitalia normal, normal Bartholin's glands, urethra, [place]'s glands, no vulvar lesions, no cervical lesions, [...] Medical Decision Making Level: 3 - Low [facility] History of Present illness Narrative 02-08-2025 Anna Campos APRN.CNP - 02/08/2025 7:15 AM EDT Note Date & Type Note Facility 02-08-2025 History of Presen t illness Narrative 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 Garcia Farrell is a 69 year old [...] Living3 SAB0 IAB0 Ectopic0 Multiple0 Live Births0 Floatman History LMP: 02/25/2012, Postmenopausal Age at Menarche: Age at First : Age at Menopause: Floatman History Comments: Sexual Activity: Not Currently; Male [...] discussed with the Patient or Patient's Authorized Application Software Engineer. As applicable, any other physician, advance practice provider, medical student, or other health professional student that will be observing or involved in the sensitive examination for educational or training purposes was discussed with the Patient or Authorized Application Software Engineer. The Patient or Authorized Application Software Engineer has agreed to proceed with the sensitive [...] external genitalia normal, normal Bartholin's glands, urethra, [place]'s glands, no vulvar lesions, no cervical lesions, [...] 3 - Low documented in this encounter [facility] Evaluation note Note Date & Type Note Facility Evaluation note No assessment information availa [facility] Work Phone: Evaluation note Note Date [...] female genital organs documented in this encounter [facility] Reason for referral (narrative) Note Date & [...] No April 13, 2014 7:15am Power of Referral Manager No March 7:15am Advance Directive Response Recorded Date/ Time Advance Directives No March 6:15am Living Will No April 13, 2014 6:15am Power of Referral Manager No March 6:15am Advance Directive Response Recorded Date/ Time Living Will No April 13, 2014 7:15am Do you have a Healthcare Power of Referral Manager? No April 13, 2014 7:15am Advance Directives [...] 19, 2025 End: January 19, 2025 Dr. Linh Peters DO Attending Provider Active St art: January 19, 2025 End: January 19, 2025 [employer] Relationship Specialty Start Date End Date Sofía Wilson PCP - General Family Medicine 04/03/12 [employer] Relationship Specialty Start Date End Date Sofía Wilson PCP - General Family Medicine 04/03/12 Source Comments (unrecognize d section and content) In the event this informatio n is protected by the Federal Confidentiality of Alcohol and Drug Abuse Patient Records regulations: The Federal rules restrict any use of the information to criminally investigate or prosecute any alcohol or drug abuse patient.[facility] the event this information is protected by the Federal Confidentiality of Alcohol and Drug Abuse Patient Records regulations: The Federal rules restrict any use of the information to criminally investigate or prosecute any alcohol or drug abuse patient.[facility] Reason for Visit (unrecogniz ed section and content) Reason Comments Problem Visit Reason Onset Date Comments Results 02/09/2025 INFORMATION SOURCE (unrecogn ized section and content) DATE CREATED AUTHOR 02/09/2025 [facility] DATE CREATED AUTHOR AUTHOR'S ORGANIZ ATION 05/01/2025 [facility] FOR RECORDS PERTAINING TO PATIENTS WHO [...] BE BASED ON THE PRIMARY CLINICAL RECORDS. [employer] provides no warranty or guarantee of the accuracy or completeness of information in this document.
[2025-05-07 11:43] VITALS: BP 119/50; PULSE 62; RESP 16; TEMP 35.8; O2SAT 99; BMI 25.7
[2025-05-07] MEDS: DENOSUMAB 60 MG/ML SC (11:45)
== END 2025-05-07 23:59 | disposition home or self-care (01) ==
LOC: MEDOUTP 11:22
PROVIDERS: PCP Family Medicine; Referring Provider Family Medicine; Visit Provider Family Medicine
DX: M81.0 Age-related osteoporosis without current pathological fracture (principal)
CPT/HCPCS: 96372; J0897

== ENCOUNTER → 2025-06-15 | Outpatient (CLI) | payer MEDICARE, OTHER, SELFPAY ==
--- NOTE | 2025-06-15 10:37 | BI_ITS ---
EXAM: SCRN MAMM (CAD)W/REUBEN BILAT DATE: 06/15/2025 CLINICAL HISTORY: F, Age 69 y/o , SCREENING TECHNIQUE: Procedure Code: [id number] Modality: MG Procedure: SCRN MAMM (CAD)W/REUBEN BILAT COMPARISON: Prior exam(s) dated 06/04/2024, 11/14/2022, and 11/09/2021. FINDINGS: TISSUE DENSITY: There are scattered areas of fibroglandular density. Bilateral Breast Mammographic Findings: No significant masses, calcifications or other abnormalities are identified. Benign vascular calcifications and round microcalcifications are seen in both breasts. A stable 3 mm well-circumscribed isodense mass is seen in the superior outer, middle 3rd aspect of the left breast. BI/SCRN MAMM (CAD)W/REUBEN BILAT IMPRESSION: Benign screening mammogram. OVERALL FINAL ASSESSMENT BI-RADS 2: BENIGN RECOMMENDATION: Routine annual follow-up in 1 Year Additional Recommendation none A letter with findings and recommendations will be mailed to the patient. Reading Location: [id number]
--- OUTSIDE RECORDS SUMMARY | 2025-06-15 12:34 | XMS RPT_ITS | CCD ---
Demographics Address [address] [place] [address] Mobile Phone Preferred Language en Marital Status Presybeterian Affiliation Unknown Race White Ethnic Group Not or Lati
== END | disposition home or self-care (01) ==
LOC: OPBI 10:36
PROVIDERS: PCP Family Medicine; Referring Provider Family Medicine; Visit Provider Family Medicine
DX: Z12.31 Encounter for screening mammogram for malignant neoplasm of breast (principal)
CPT/HCPCS: 77063; 77067